=== PATIENT | female | born 1930 | race Caucasian/White ===

== ENCOUNTER 2016-09-11 15:48 | Inpatient (IN) | payer MEDICARE, OTHER ==
[~2016-09-11] VITALS: Ht 162.6 cm; Wt 57.7 kg
[~2016-09-11 15:48] MED LIST: ACET325T21 PO; ALBU2.5V13 NEB; ALBU2.5V5 NEB; ALEN70TA3 PO; ASPI325T4 PO; CALC-98 PO; CALC1TAB75 PO; CALC200T3 PO; CALC600T4 PO; CEPH-263 PO; CETI10TA16 PO; DIGO250T PO; DILT120C97 PO; FERR140T2 PO; FERR325T72 PO; FURO-68 PO; FURO40TA4 PO; HYDR-2666 PO; LEVO500T8 PO; LISI-334 PO; MAGN400C PO; MAGN400T3 PO; MELO-156 PO; METO25TA2 PO; METO25TA9 PO; OXYC-323 PO; POTA10CA PO; POTA10TA12 PO; TAMO10TA PO; TIOT18CA IH; TRAV5DRO EACHEYE
--- NOTE | 2016-09-11 16:44 | EKG ---
[facility] [address] [place] [address] Test Date: 2016-09-11 Test Time: 16:34:42 Pat Name: ALICE LEVY Department: Patient ID: [id number] Room: Gender: F [employer] Supervisor: VIKAS ER : 1930 Requested By: JESSICA LAWRENCE Order Number: [id number] Reading MD: Mary Jo Castaneda Measurements Intervals Armstrong Rate: 75 P: MD: QRS: 137 QRSD: 88 T: -16 QT: 398 QTc: 447 Interpretive Statements ATRIAL FIBRILLATION ABNORMAL RIGHT AXIS DEVIATION CONSIDER RIGHT VENTRICULAR HYPERTROPHY QRS(T) CONTOUR ABNORMALITY CONSISTENT WITH SEPTAL INFARCT AGE UNDETERMINED T ABNORMALITY IN INFERIOR LEADS ABNORMAL ECG RI6.01 Compared to ECG 07/19/2016 14:48:12 Electronically Signed On 09-15-2016 23:13:06 MEDICAL BILLER/CODER by Mary Jo Castaneda
[2016-09-11 16:56] LABS: BASO # 0.1 x10^3/uL (0.0-0.2); BASO % 1 % (0-3); EOS % 5 % (0-3); HEMATOCRIT 36.3 % (36.0-47.0); HEMOGLOBIN 11.8 g/dL (12.0-15.5); LYMPH % 18 % (24-48); MEAN CORPUSCULAR HEMOGLOBIN 29 pg (25-35); MEAN CORPUSCULAR HGB CONC 33 g/dL (31-37); MEAN CORPUSCULAR VOLUME 90 fL (79-100); MONO % 18 % (0-9); NEUT % 58 % (31-73); PLATELET COUNT 157 x10^3/uL (140-400); RED BLOOD COUNT 4.05 x10^6/uL (3.50-5.40); WHITE BLOOD COUNT 5.5 x10^3/uL (4.0-11.0)
[2016-09-11 17:12] LABS: INR 1.3 (0.8-1.1); PROTHROMBIN TIME PATIENT 15.3 SEC (11.7-14.0)
[2016-09-11 17:30] LABS: BILIRUBIN,URINE NEGATIVE (NEG); GLUCOSE,URINE NEGATIVE (NEG); NITRITE,URINE NEGATIVE (NEG); PROTEIN,URINE NEGATIVE (NEG-TRACE); UROBILINOGEN,URINE 0.2 mg/dL (0.2 mg/dL)
--- NOTE | 2016-09-11 17:44 | ED.ADGEN ---
Past Medical History Past Medical History: A-Fib, Anxiety, Arthritis, CHF, COPD, Hypertension, UTI Additional Past Medical Histor: BREAT CA, UTI SCOLOSIS, DVT, 02 AT HOME Past Surgical History: Other Additional Past Surgical Histo: R LUMPECTOMY Alcohol Use: None Drug Use: None Adult General Chief Complaint Chief Complaint: LOWER EXTREMITY SWELLING HPI HPI Patient is a 86 year old woman, history of atrial fibrillation, CAD, CHF, hypertension, breast cancer, who presents emergency Department with complaint of increased swelling in her lower extremities with a 5 pound weight gain over the past 4 days, increasing shortness of breath with dyspnea and exertion. Patient presented with her family with a concern for worsening of her underlying congestive heart failure. Patient's son states she isn't compliant with her medications, and that she was given extra dose of her Lasix today, but due to severity of symptoms became to the ED for evaluation. Patient denies any chest pain, any fevers or chills, cough, any injuries. Denies any GI or complaints, her primary care provider is Dr. Castaneda. Patient is on 2 L nasal cannula at baseline, 3 L of activity, patient is on 2 L in the ED, oxygen saturation are in the mid 90s. Heart rate is in the 70s, pressure 114/78. No respiratory distress. Review of Systems Review of Systems Constitutional: Denies fever or chills. [] Eyes: Denies change in visual acuity. [] HENT: Denies nasal congestion or sore throat. [] Respiratory: Denies cough or shortness of breath. [] Cardiovascular: Denies chest pain or edema. [] GI: Denies abdominal pain, nausea, vomiting, bloody stools or diarrhea. [] : Denies dysuria. [] Musculoskeletal: Denies back pain or joint pain. [] Integument: Denies rash. [] Neurologic: Denies headache, focal weakness or sensory changes. [] Endocrine: Denies polyuria or polydipsia. [] Lymphatic: Denies swollen glands. [] Psychiatric: Denies depression or anxiety. [] Allergies Allergies Allergies Coded Allergies Type Severity Reaction Last Updated Verified adhesive Allergy Intermediate 04/04/15 Yes Physical Exam Physical Exam Constitutional: Well developed, well nourished, no acute distress, non-toxic appearance. [] HENT: Normocephalic, atraumatic, bilateral external ears normal, oropharynx moist, no oral exudates, nose normal. [] Eyes: PERRLA, EOMI, conjunctiva normal, no discharge. [] Neck: Normal range of motion, no tenderness, supple, no stridor. [] Cardiovascular:Heart rate regular rhythm, no murmur , S1, S2, rubs or gallops. [ ] Lungs & Thorax: Diminished breath sounds at bases bilaterally to mid lung field especially on the right, with mild rales noted. No chest wall crepitus or tenderness. [] Abdomen: Bowel sounds normal, soft, no tenderness, no masses, no pulsatile masses. [] Skin: Warm, dry, no erythema, no rash. [] Back: No tenderness, no CVA tenderness. [] Extremities: No tenderness, no cyanosis, no clubbing, ROM intact, patient with 1 -2+ pitting edema bilaterally lower extremities. Neurologic: Alert and oriented X 3, normal motor function, normal sensory function, no focal deficits noted. [] Psychologic: Affect normal, judgement normal, mood normal. [] Current Patient Data Vital Signs Vital Signs Date Time Temp Pulse Resp B/P Pulse Ox O2 Delivery O2 Flow Rate FiO2 09/11/16 17:30 78 24 114/74 Nasal Cannula 97 09/11/16 17:00 96 09/11/16 16:20 98.2 98.2 Lab Values Laboratory Tests Test 09/11/16 16:40 09/11/16 17:21 09/11/16 17:30 White Blood Count 5.5x10^3/uL (4.0-11.0) Red Blood Count 4.05x10^6/uL (3.50-5.40) Hemoglobin 11.8g/dL (12.0-15.5) L Hematocrit 36.3% (36.0-47.0) Mean Corpuscular Volume 90fL (79-100) Mean Corpuscular Hemoglobin 29pg (25-35) Mean Corpuscular Hemoglobin Concent 33g/dL (31-37) Red Cell Distribution Width 16.0% (11.5-14.5) H Platelet Count 157x10^3/uL (140-400) Neutrophils (%) (Auto) 58% (31-73) Lymphocytes (%) (Auto) 18% (24-48) L Monocytes (%) (Auto) 18% (0-9) H Eosinophils (%) (Auto) 5% (0-3) H Basophils (%) (Auto) 1% (0-3) Neutrophils # (Auto) 3.2x10^3uL (1.8-7.7) Lymphocytes # (Auto) 1.0x10^3/uL (1.0-4.8) Monocytes # (Auto) 1.0x10^3/uL (0.0-1.1) Eosinophils # (Auto) 0.3x10^3/uL (0.0-0.7) Basophils # (Auto) 0.1x10^3/uL (0.0-0.2) Segmented Neutrophils % 59% (35-66) Band Neutrophils % 1% (0-9) Lymphocytes % 18% (24-48) L Monocytes % 19% (0-10) H Eosinophils % 1% (0-5) Basophils % 2% (0-3) Platelet Estimate Adequate (ADEQUATE) Poikilocytosis Mod Anisocytosis Slight Ovalocytes Few Schistocytes Few RBC Morphology Bizarre Forms Few Prothrombin Time 15.3SEC (11.7-14.0) H Prothrombin Time INR 1.3 (0.8-1.1) H PTT 35SEC (24-38) Urine Collection Type Unknown Urine Color Yellow Urine Clarity Clear Urine pH 7.0 Urine Specific [place] <=1.005 Urine Protein Negativemg/dL (NEG-TRACE) Urine Glucose (UA) Negativemg/dL (NEG) Urine Ketones (Stick) Negativemg/dL (NEG) Urine Blood Small (NEG) Urine Nitrite Negative (NEG) Urine Bilirubin Negative (NEG) Urine Urobilinogen Dipstick 0.2mg/dL (0.2 mg/dL) Urine Leukocyte Esterase Negative (NEG) Urine RBC Occ/HPF (0-2) Urine WBC 0/HPF (0-4) Urine Squamous Epithelial Cells Few/LPF Urine Bacteria Few/HPF (0-FEW) Sodium Level 141mmol/L (136-145) Potassium Level 4.4mmol/L (3.5-5.1) Chloride Level 102mmol/L (98-107) Carbon Dioxide Level 34mmol/L (21-32) H Anion Gap 5 (6-14) L Blood Urea Nitrogen 18mg/dL (7-20) Creatinine 1.0mg/dL (0.6-1.0) Estimated GFR (Cockcroft-Gault) 52.3 BUN/Creatinine Ratio 18 (6-20) Glucose Level 113mg/dL (70-99) H Calcium Level 9.2mg/dL (8.5-10.1) Total Bilirubin 0.9mg/dL (0.2-1.0) Aspartate Amino Transferase (AST) 24U/L (15-37) Alanine Aminotransferase (ALT) 10U/L (14-59) L Alkaline Phosphatase 155U/L (46-116) H Troponin I Quantitative < 0.017ng/mL (0.000-0.055) YB-[id number]-[id number]-Type Natriuretic Peptide 1802pg/mL (0-449) H Total Protein 7.3g/dL (6.4-8.2) Albumin 3.3g/dL (3.4-5.0) L Albumin/Globulin Ratio 0.8 (1.0-1.7) L Laboratory Tests 09/11/16 16:40 Laboratory Tests 09/11/16 17:30 EKG EKG EC: Regular rhythm, heart rate 75 beats minute, atrial fibrillation, right axis deviation with right ventricular hypertrophy noted, patient with T- wave inversions noted in the inferior leads, when compared to ECG from , this is a change, no ST elevations, mild baseline artifact noted. Abnormal ECG , as interpreted by me. [] Radiology/Procedures Radiology/Procedures Test x-ray: One view: Patient with large pleural effusion noted on the right, with significant cardiomegaly, pacemaker is in place, mild cephalization noted, effusion sun a significant change from previous x-ray. As interpreted by me. [ ] Course & Med Decision Making Course & Med Decision Making Pertinent Labs and Imaging studies reviewed. (See chart for details) Patient noted to have a large right-sided pleural effusion, discussion with family reveals the patient does a history of previous right-sided pleural effusion accumulations, has required drainage by interventional radiology. Patient is resting comfortably at this time, on 2 L nasal cannula, oxygen saturation is in the mid 90s, heart rate is in the 80s area I did discuss findings with Dr. Zapien, who is on-call for the patient's primary care provider Dr. Castaneda . We'll admit to her service, and placed a consultation for no rash or radiology for drainage. Discuss findings with family as stated, they're agreeable with this plan. Patient resting comfortably awaiting transfer to the floor. Dragon Disclaimer Dragon Disclaimer This electronic medical record was generated, in whole or in part, using a voice recognition dictation system. Departure Impression: Primary Impression: Pleural effusion Additional Impression: CHF (congestive heart failure) Disposition: 09 ADMITTED INPATIENT Admitting Physician: Chucky Zapien Condition: STABLE Problem Qualifiers Additional Impression: CHF (congestive heart failure) Congestive heart failure type: unspecified congestive heart failure type Congestive heart failure chronicity: unspecified congestive heart failure chronicity Qualified Code: I50.9 - Heart failure, unspecified JESSICA LAWRENCE DO Sep 11, 2016 17:44
[2016-09-11 17:45] LABS: CALCIUM 9.2 mg/dL (8.5-10.1); GFR 52.3; POTASSIUM 4.4 mmol/L (3.5-5.1)
[2016-09-11 17:45] LABS: BACTERIA,URINE FEW /HPF (0-FEW); RBC,URINE OCC /HPF (0-2); SQUAMOUS EPITHELIAL CELL,UR FEW /LPF; WBC,URINE 0 /HPF (0-4)
[2016-09-11 17:59] LABS: % BASOS 2 % (0-3); % EOS 1 % (0-5); ANISOCYTOSIS SLIGHT; PLT ESTIMATE ADEQUATE (ADEQUATE); POIKILOCYTOSIS MOD
[2016-09-11 18:00] LABS: OVALOCYTES FEW; SCHISTOCYTES FEW
[2016-09-11 18:00] LABS: ALBUMIN 3.3 g/dL (3.4-5.0); ALBUMIN/GLOBULIN RATIO 0.8 (1.0-1.7); TOTAL BILIRUBIN 0.9 mg/dL (0.2-1.0); TOTAL PROTEIN 7.3 g/dL (6.4-8.2)
[2016-09-11 20:00] VITALS: BP 114/80
[2016-09-11] MEDS ORDERED: CALCIUM CARBONATE 500 MG TAB.CHEW PO PRN (23:15)
[2016-09-11] MEDS ORDERED: ACETAMINOPHEN 325 MG TABLET. PO PRN (23:15)
[2016-09-11] MEDS ORDERED: HYDROCODONE/APAP 5/325MG TABLET. PO PRN (23:15)
[2016-09-11 23:24] VITALS: BP 113/65
[2016-09-11] MEDS: OXYCODONE/APAP 5/325 TABLET. PO PRN (23:58)
[2016-09-12] VITALS (10 sets, daily range): BP systolic 90–110; BP diastolic 56–83
[2016-09-12] MEDS ORDERED: PNEUMOCOCCAL VAX SCREEN BY RX. MC ONE (02:15)
[2016-09-12] MEDS: IPRATRPIUM/ALBUTEROL 0.5/2.5MG 3 ML NEBU. NEB SCH ×4 (08:48→21:09)
[2016-09-12] MEDS: METOPROLOL SUCC 24HR ER 25 MG TAB.ER.24H. PO SCH ×2 (09:00→12:39)
[2016-09-12] MEDS ORDERED: ALBUTEROL SULFATE 2.5 MG/3 ML NEBU. NEB SCH (09:00)
[2016-09-12] MEDS: FUROSEMIDE 40 MG TABLET PO SCH ×2 (09:00→16:00)
[2016-09-12] MEDS ORDERED: NON FORMULARY ITEM (Tiotropium Bromide (Spiriva) 1 CAP) IH SCH (09:00)
[2016-09-12] MEDS: CETIRIZINE HCL 10 MG TABLET PO SCH (09:07)
[2016-09-12] MEDS: FERROUS SULFATE 325 MG TABLET PO SCH (09:07)
[2016-09-12] MEDS: ASPIRIN 325 MG TABLET PO SCH (09:07)
[2016-09-12] MEDS: MAGNESIUM OXIDE 400 MG TABLET PO SCH (09:08)
--- NOTE | 2016-09-12 09:21 | RAD ---
Portable AP chest. History: Short of air, history CHF, hypertension AP view is taken of the chest. The heart is enlarged. Pacemaker on the left is unchanged. There is a moderate to large right pleural effusion which has worsened since the prior study from July 2016. There is atelectasis in the right lung base. There is a small left effusion. Impression: 1. Cardiomegaly. 2. Moderate to large right effusion.
[2016-09-12 09:25] LABS: BASO # 0.1 x10^3/uL (0.0-0.2); BASO % 1 % (0-3); EOS % 2 % (0-3); HEMATOCRIT 34.3 % (36.0-47.0); HEMOGLOBIN 11.2 g/dL (12.0-15.5); LYMPH # 1.3 x10^3/uL (1.0-4.8); LYMPH % 24 % (24-48); MEAN CORPUSCULAR HEMOGLOBIN 29 pg (25-35); MEAN CORPUSCULAR HGB CONC 33 g/dL (31-37); MEAN CORPUSCULAR VOLUME 88 fL (79-100); MONO % 14 % (0-9); NEUT % 58 % (31-73); PLATELET COUNT 157 x10^3/uL (140-400); RED BLOOD COUNT 3.89 x10^6/uL (3.50-5.40); RED CELL DISTRIBUTION WIDTH 15.9 % (11.5-14.5); WHITE BLOOD COUNT 5.2 x10^3/uL (4.0-11.0)
[2016-09-12 09:36] LABS: CALCIUM 8.7 mg/dL (8.5-10.1); CREATININE 1.1 mg/dL (0.6-1.0); GFR 46.9; POTASSIUM 3.6 mmol/L (3.5-5.1)
[2016-09-12] MEDS: OXYCODONE/APAP 5/325 TABLET. PO PRN (14:33)
--- NOTE | 2016-09-12 16:17 | PDOC1 ---
History and Physical Date of Admission Date of Admission DATE: 09/12/16 TIME: 16:11 Identification/Chief Complaint Chief Complaint Covering for Dr. Castaneda This patient is a very pleasant 86-year-old lady that has a known history of coronary artery disease, atrial fibrillation, status post pacemaker, and breast CA. She has had problems with pleural effusions in the past and once before she had to be tapped. The patient has been getting more and more short of breath over the last week and especially over the last 5 days and she has noticed that her weight has gone up several pounds. She denies any palpitations, she denies any chest pains. The patient came into the ER with severe dyspnea. She was seen and evaluated there and she was found to have a large right pleural effusion present. He was decided to admit the patient for further workup and treatment. At the time that I saw her she is short of breath and has received IV Lasix and she is complaining about the frequency of urination but denies any chest pains. Past Medical History Cardiovascular: AFIB, CAD, CHF, HTN, Mitral valve stenosis, Aortic stenosis Pulmonary: Other Heme/Onc: Cancer, Other Past Surgical History Past Surgical History: Other Family History Family History: No Significant Social History ALCOHOL: none Drugs: None Current Problem List Problem List Problems Medical Problems: (1) CHF (congestive heart failure) Status: Acute (2) Pleural effusion Status: Acute Problems: Current Medications Current Medications Current Medications Acetaminophen (Tylenol) 325 mg PRN Q4HRS PRN PO MILD PAIN; Start 09/11/16 at 23: 15 Albuterol Sulfate (Ventolin Neb Soln) 1 mg QID NEB ; Start 09/12/16 at 09:00; Status UNV Aspirin (Meena Aspirin) 325 mg DAILY PO Last administered on 09/12/16 09:07; Start 09/12/16 at 09:00 Calcium Carbonate/ Glycine (Tums) 500 mg PRN Q2HRS PRN PO INDIGESTION; Start at 23:15 Cetirizine HCl (Zyrtec) 10 mg DAILY PO Last administered on 09/12/16 09:07; Start 09/12/16 at 09:00 Ferrous Sulfate (Feosol) 325 mg DAILY PO Last administered on 09/12/16 09:07; Start 09/12/16 at 09:00 Furosemide (Lasix) 40 mg BID94 PO ; Start 09/12/16 at 09:00 Acetaminophen/ Hydrocodone Bitart (Lortab 5/325) 1 tab PRN Q8HRS PRN PO MODERATE PAIN; Start 09/11/16 at 23:15 Magnesium Oxide (Magnesium Oxide) 400 mg DAILY PO Last administered on 09:08; Start 09/12/16 at 09:00 Metoprolol Succinate (Toprol Xl) 25 mg DAILY PO Last administered on 09/12/16 12:39; Start 09/12/16 at 09:00 Oxycodone/ Acetaminophen (Percocet 5/325) 1 tab PRN Q8HRS PRN PO SEVERE PAIN Last administered on 09/12/16 14:33; Start 09/11/16 at 23:15 Potassium Chloride (Klor-Con) 40 meq BID PO ; Start 09/12/16 at 09:00 Non-Formulary Medication 1 cap DAILY IH ; Start 09/12/16 at 09:00; Status UNV Latanoprost (Xalatan) 1 drop QHS OU ; Start 09/12/16 at 21:00 Albuterol/ Ipratropium (Duoneb) 3 ml RTQID NEB Last administered on 09/12/16 16 :00; Start 09/12/16 at 08:00 Pneumococcal Polyvalent Vaccine (Do NOT chart on this placeholder) 1 each 1X ONCE MC ; Start 09/12/16 at 02:15; Stop 09/12/16 at 02:16; Status UNV Active Scripts Active Keflex (Cephalexin) 250 Mg Capsule 1 Cap PO TID Feosol (Ferrous Sulfate) 325 Mg Tablet 325 Mg PO DAILY Reported Potassium Chloride 10 Meq Capsule.er 40 Meq PO BID Aspirin 325 Mg Tablet 1 Tab PO DAILY Percocet 5-325 Mg Tablet (Oxycodone/Acetaminophen) 1 Each Tablet 1 Tab PO Q8HRS PRN Toprol Xl (Metoprolol Succinate) 25 Mg Tab.er.24h 1 Tab PO DAILY Magnesium Oxide 400 Mg Tablet 400 Mg PO DAILY Lasix (Furosemide) 40 Mg Tablet 1 Tab PO BID Albuterol Sulfate Neb Soln (Albuterol Sulfate) 2.5 Mg/3 Ml Vial.neb 1 Vial NEB QID Hydrocodone-Apap 5-325 (Hydrocodone Bit/Acetaminophen) 1 Each Tablet 1 Tab PO PRN Q8HRS PRN Cetirizine Hcl 10 Mg Tablet 1 Tab PO DAILY Acetaminophen 325 Mg Tablet 325 Mg PO PRN Q4HRS PRN Tums (Calcium Carbonate) 200 Mg Tab.chew 200 Mg PO PRN Q2HRS PRN Spiriva (Tiotropium [place]) 18 Mcg Cap.w.dev 1 Cap IH DAILY Travatan Z (Travoprost) 5 Ml Drops 1 Drop EACHEYE QHS Allergies Allergies: Coded Allergies: adhesive (Verified Allergy, Intermediate, 04/04/15) Physical Exam Physical Exam Patient is an elderly lady in mild distress. H EENT pupils are reactive. Oral mucosa is well-hydrated. Neck is supple 2 cm JVD. Lungs breath sounds are markedly decreased in the right side custodial up and there are Rales on the right side above that and there are also Rales in the left base. No wheezing. Heart tachycardia, regular rate and rhythm, S1 and S2, 2/6 systolic murmur. Abdomen is soft bowel sounds are present. Extremities 1+ pitting edema. Neurological exam was grossly intact and appropriate for age. Vitals Vitals Vital Signs Date Time Temp Pulse Resp B/P Pulse Ox O2 Delivery O2 Flow Rate FiO2 09/12/16 16:00 Nasal Cannula 3.0 09/12/16 15:36 98.2 79 24 97/58 96 98.2 Labs Labs Laboratory Tests Test 09/11/16 16:40 09/11/16 17:21 09/11/16 17:30 09/12/16 09:15 White Blood Count 5.5x10^3/uL (4.0-11.0) 5.2x10^3/uL (4.0-11.0) Red Blood Count 4.05x10^6/uL (3.50-5.40) 3.89x10^6/uL (3.50-5.40) Hemoglobin 11.8g/dL (12.0-15.5) 11.2g/dL (12.0-15.5) Hematocrit 36.3% (36.0-47.0) 34.3% (36.0-47.0) Mean Corpuscular Volume 90fL (79-100) 88fL (79-100) Mean Corpuscular Hemoglobin 29pg (25-35) 29pg (25-35) Mean Corpuscular Hemoglobin Concent 33g/dL (31-37) 33g/dL (31-37) Red Cell Distribution Width 16.0% (11.5-14.5) 15.9% (11.5-14.5) Platelet Count 157x10^3/uL (140-400) 157x10^3/uL (140-400) Neutrophils (%) (Auto) 58% (31-73) 58% (31-73) Lymphocytes (%) (Auto) 18% (24-48) 24% (24-48) Monocytes (%) (Auto) 18% (0-9) 14% (0-9) Eosinophils (%) (Auto) 5% (0-3) 2% (0-3) Basophils (%) (Auto) 1% (0-3) 1% (0-3) Neutrophils # (Auto) 3.2x10^3uL (1.8-7.7) 3.0x10^3uL (1.8-7.7) Lymphocytes # (Auto) 1.0x10^3/uL (1.0-4.8) 1.3x10^3/uL (1.0-4.8) Monocytes # (Auto) 1.0x10^3/uL (0.0-1.1) 0.7x10^3/uL (0.0-1.1) Eosinophils # (Auto) 0.3x10^3/uL (0.0-0.7) 0.1x10^3/uL (0.0-0.7) Basophils # (Auto) 0.1x10^3/uL (0.0-0.2) 0.1x10^3/uL (0.0-0.2) Segmented Neutrophils % 59% (35-66) Band Neutrophils % 1% (0-9) Lymphocytes % 18% (24-48) Monocytes % 19% (0-10) Eosinophils % 1% (0-5) Basophils % 2% (0-3) Platelet Estimate Adequate (ADEQUATE) Poikilocytosis Mod Anisocytosis Slight Ovalocytes Few Schistocytes Few RBC Morphology Bizarre Forms Few Prothrombin Time 15.3SEC (11.7-14.0) Prothromb Time International Ratio 1.3 (0.8-1.1) Activated Partial Thromboplast Time 35SEC (24-38) Urine Collection Type Unknown Urine Color Yellow Urine Clarity Clear Urine pH 7.0 Urine Specific [place] <=1.005 Urine Protein Negativemg/dL (NEG-TRACE) Urine Glucose (UA) Negativemg/dL (NEG) Urine Ketones (Stick) Negativemg/dL (NEG) Urine Blood Small (NEG) Urine Nitrite Negative (NEG) Urine Bilirubin Negative (NEG) Urine Urobilinogen Dipstick 0.2mg/dL (0.2 mg/dL) Urine Leukocyte Esterase Negative (NEG) Urine RBC Occ/HPF (0-2) Urine WBC 0/HPF (0-4) Urine Squamous Epithelial Cells Few/LPF Urine Bacteria Few/HPF (0-FEW) Sodium Level 141mmol/L (136-145) 142mmol/L (136-145) Potassium Level 4.4mmol/L (3.5-5.1) 3.6mmol/L (3.5-5.1) Chloride Level 102mmol/L (98-107) 102mmol/L (98-107) Carbon Dioxide Level 34mmol/L (21-32) 31mmol/L (21-32) Anion Gap 5 (6-14) 9 (6-14) Blood Urea Nitrogen 18mg/dL (7-20) 17mg/dL (7-20) Creatinine 1.0mg/dL (0.6-1.0) 1.1mg/dL (0.6-1.0) Estimated GFR (Cockcroft-Gault) 52.3 46.9 BUN/Creatinine Ratio 18 (6-20) Glucose Level 113mg/dL (70-99) 179mg/dL (70-99) Calcium Level 9.2mg/dL (8.5-10.1) 8.7mg/dL (8.5-10.1) Total Bilirubin 0.9mg/dL (0.2-1.0) Aspartate Amino Transf (AST/SGOT) 24U/L (15-37) Alanine Aminotransferase (ALT/SGPT) 10U/L (14-59) Alkaline Phosphatase 155U/L (46-116) Troponin I Quantitative < 0.017ng/mL (0.000-0.055) GZ-Ahg-A-Type Natriuretic Peptide 1802pg/mL (0-449) Total Protein 7.3g/dL (6.4-8.2) Albumin 3.3g/dL (3.4-5.0) Albumin/Globulin Ratio 0.8 (1.0-1.7) Laboratory Tests Test 09/11/16 16:40 09/11/16 17:21 09/11/16 17:30 09/12/16 09:15 White Blood Count 5.5x10^3/uL (4.0-11.0) 5.2x10^3/uL (4.0-11.0) Red Blood Count 4.05x10^6/uL (3.50-5.40) 3.89x10^6/uL (3.50-5.40) Hemoglobin 11.8g/dL (12.0-15.5) 11.2g/dL (12.0-15.5) Hematocrit 36.3% (36.0-47.0) 34.3% (36.0-47.0) Mean Corpuscular Volume 90fL (79-100) 88fL (79-100) Mean Corpuscular Hemoglobin 29pg (25-35) 29pg (25-35) Mean Corpuscular Hemoglobin Concent 33g/dL (31-37) 33g/dL (31-37) Red Cell Distribution Width 16.0% (11.5-14.5) 15.9% (11.5-14.5) Platelet Count 157x10^3/uL (140-400) 157x10^3/uL (140-400) Neutrophils (%) (Auto) 58% (31-73) 58% (31-73) Lymphocytes (%) (Auto) 18% (24-48) 24% (24-48) Monocytes (%) (Auto) 18% (0-9) 14% (0-9) Eosinophils (%) (Auto) 5% (0-3) 2% (0-3) Basophils (%) (Auto) 1% (0-3) 1% (0-3) Neutrophils # (Auto) 3.2x10^3uL (1.8-7.7) 3.0x10^3uL (1.8-7.7) Lymphocytes # (Auto) 1.0x10^3/uL (1.0-4.8) 1.3x10^3/uL (1.0-4.8) Monocytes # (Auto) 1.0x10^3/uL (0.0-1.1) 0.7x10^3/uL (0.0-1.1) Eosinophils # (Auto) 0.3x10^3/uL (0.0-0.7) 0.1x10^3/uL (0.0-0.7) Basophils # (Auto) 0.1x10^3/uL (0.0-0.2) 0.1x10^3/uL (0.0-0.2) Segmented Neutrophils % 59% (35-66) Band Neutrophils % 1% (0-9) Lymphocytes % 18% (24-48) Monocytes % 19% (0-10) Eosinophils % 1% (0-5) Basophils % 2% (0-3) Platelet Estimate Adequate (ADEQUATE) Poikilocytosis Mod Anisocytosis Slight Ovalocytes Few Schistocytes Few RBC Morphology Bizarre Forms Few Prothrombin Time 15.3SEC (11.7-14.0) Prothromb Time International Ratio 1.3 (0.8-1.1) Activated Partial Thromboplast Time 35SEC (24-38) Urine Collection Type Unknown Urine Color Yellow Urine Clarity Clear Urine pH 7.0 Urine Specific [place] <=1.005 Urine Protein Negativemg/dL (NEG-TRACE) Urine Glucose (UA) Negativemg/dL (NEG) Urine Ketones (Stick) Negativemg/dL (NEG) Urine Blood Small (NEG) Urine Nitrite Negative (NEG) Urine Bilirubin Negative (NEG) Urine Urobilinogen Dipstick 0.2mg/dL (0.2 mg/dL) Urine Leukocyte Esterase Negative (NEG) Urine RBC Occ/HPF (0-2) Urine WBC 0/HPF (0-4) Urine Squamous Epithelial Cells Few/LPF Urine Bacteria Few/HPF (0-FEW) Sodium Level 141mmol/L (136-145) 142mmol/L (136-145) Potassium Level 4.4mmol/L (3.5-5.1) 3.6mmol/L (3.5-5.1) Chloride Level 102mmol/L (98-107) 102mmol/L (98-107) Carbon Dioxide Level 34mmol/L (21-32) 31mmol/L (21-32) Anion Gap 5 (6-14) 9 (6-14) Blood Urea Nitrogen 18mg/dL (7-20) 17mg/dL (7-20) Creatinine 1.0mg/dL (0.6-1.0) 1.1mg/dL (0.6-1.0) Estimated GFR (Cockcroft-Gault) 52.3 46.9 BUN/Creatinine Ratio 18 (6-20) Glucose Level 113mg/dL (70-99) 179mg/dL (70-99) Calcium Level 9.2mg/dL (8.5-10.1) 8.7mg/dL (8.5-10.1) Total Bilirubin 0.9mg/dL (0.2-1.0) Aspartate Amino Transf (AST/SGOT) 24U/L (15-37) Alanine Aminotransferase (ALT/SGPT) 10U/L (14-59) Alkaline Phosphatase 155U/L (46-116) Troponin I Quantitative < 0.017ng/mL (0.000-0.055) CP-Lrv-K-Type Natriuretic Peptide 1802pg/mL (0-449) Total Protein 7.3g/dL (6.4-8.2) Albumin 3.3g/dL (3.4-5.0) Albumin/Globulin Ratio 0.8 (1.0-1.7) VTE Prophylaxis Ordered VTE Prophylaxis Devices: No VTE Pharmacological Prophylaxi: Yes Assessment/Plan Assessment/Plan This patient comes in with respiratory distress in acute CHF and with a large right pleural effusion. At this point I agree with diuresing the patient but I also think that they need to do a thoracentesis. We'll set up for the thoracentesis to be done by interventional radiology in the morning. HI LIMON MD Sep 12, 2016 16:17
[2016-09-12] MEDS ORDERED: FUROSEMIDE 40 MG/4 ML VIAL IVP ONE (16:45)
[2016-09-12] MEDS: POTASSIUM CHLORIDE 20 MEQ TABLET.ER. PO SCH ×2 (16:58→21:03)
[2016-09-12] MEDS ORDERED: POTASSIUM CHLORIDE 20 MEQ TABLET.ER. PO ONE (17:00)
[2016-09-12] MEDS: LATANOPROST 0.005% OPHTH SOLUTION 2.5ML BOTTLE. OU SCH (21:03)
[2016-09-13] VITALS (17 sets, daily range): BP systolic 99–127; BP diastolic 69–88
[2016-09-13] MEDS: IPRATRPIUM/ALBUTEROL 0.5/2.5MG 3 ML NEBU. NEB SCH ×4 (07:48→19:41)
[2016-09-13] MEDS: POTASSIUM CHLORIDE 20 MEQ TABLET.ER. PO SCH ×2 (08:15→21:01)
[2016-09-13] MEDS: FUROSEMIDE 40 MG/4 ML VIAL IVP SCH (08:15)
[2016-09-13] MEDS: METOPROLOL SUCC 24HR ER 25 MG TAB.ER.24H. PO SCH (08:16)
[2016-09-13] MEDS: CETIRIZINE HCL 10 MG TABLET PO SCH (08:16)
[2016-09-13] MEDS: MAGNESIUM OXIDE 400 MG TABLET PO SCH (08:16)
[2016-09-13] MEDS ORDERED: LIDOCAINE 1% / SOD BICARB 8.4% 20 ML VIAL. IJ ONE ×2 (10:28→11:15)
[2016-09-13] MEDS ORDERED: MIDAZOLAM HCL 2 MG/2 ML VIAL. ONE (10:56)
[2016-09-13] MEDS ORDERED: FENTANYL PF 100 MCG/2 ML VIAL. ONE (10:56)
[2016-09-13] MEDS ORDERED: FENTANYL PF 100 MCG/2 ML VIAL. IV ONE (11:15)
[2016-09-13] MEDS ORDERED: MIDAZOLAM HCL 2 MG/2 ML VIAL. IV ONE (11:15)
--- NOTE | 2016-09-13 11:26 | PDOC ---
MODERATE SEDATION ASSESSMENT RISKS/ALTERNATIVES Risks/Alternatives Risks and alternatives of this type of sedation and procedure discussed with: RISK/ALTERNATIVES: Patient H & P ON CHART H & P H & P on chart and reviewed for co-morbid conditions and appropriate labs. H&P ON CHART: Yes STATUS PREG STATUS ASSESSED: N/A MEDS/ALLERGIES REVIEWED Meds/Allergies Reviewed Medications and Allergies including time and route of recently administered narcotics and sedatives. MEDS/ALLERGIES REVIEWED: Yes ASA RATING ASA RATING: III AIRWAY ASSESSMENT Airway Assessment Airway patency, oral function limitations, presence of caps, crowns, dentures, partials, and ability to extend neck assessed. AIRWAY ASSESSMENT: Yes MALLAMPATI SCORE MALLAMPATI SCORE: II PRE-SEDATION ASSESSMENT PRE-SEDATION ASSESSMENT: Yes JITENDRA FOOTE MD Sep 13, 2016 11:26
--- NOTE | 2016-09-13 11:30 | PDOC ---
Exam Call Out Operator Call Out Operator Naveen Electrodynamicist Electrodynamicist Jamil Fuentes Pre-Procedure Diagnosis Pre-Procedure Diagnosis 86 YO female with H/o CAD, CHF, Afib, Mitral and aortic valve disease, and breast cancer. Now with recurrent right pleural effusion, with progressive dyspnea. Image guided right thoracentesis has been requested by Cardiology. Post-Procedure Diagnosis Post-Procedure Diagnosis Same Procedure Performed Procedure Performed CT guided right thoracentesis Type of Anesthesia Type of Anesthesia Local + moderate sedation Estimated Blood Loss EBL: Trace Specimens Specimans 1000 cc serosanguineous-hazy right pleural fluid removed Condition of Patient Condition of Patient No change. No apparent complication. No immediate post thora Ptx. Disposition Disposition From CT return to [facility]. F/u with Cardiology. Full report to follow. 2 hr post thoracentesis insp/exp CXR requested. JITENDRA FOOTE MD Sep 13, 2016 11:30
[2016-09-13 14:24] LABS: BF CLARITY TURBID; BF COLOR RED
--- NOTE | 2016-09-13 14:29 | RAD ---
Exam: AP portable inspiratory and expiratory upright chest radiograph. History: 2 hours status post thoracentesis. Comparison: 09/11/2016. Findings: Patient is rotated. Cardiac silhouette appears enlarged, similar previous study. Aortic atherosclerosis is seen. Single lead pacemaker by left subclavian approach is noted. There is interval resolution of right pleural effusion. No post procedure pneumothorax identified. Small left pleural effusion is seen. Impression: 1. Interval resolution of right pleural effusion, compatible with thoracentesis. No post procedure pneumothorax is identified . 2. Small left pleural effusion.
[2016-09-13] MEDS: FERROUS SULFATE 325 MG TABLET PO SCH (14:51)
[2016-09-13] MEDS: ASPIRIN 325 MG TABLET PO SCH (14:51)
--- NOTE | 2016-09-13 15:15 | RAD ---
CT-guided diagnostic and therapeutic right thoracentesis Indication: 78-year-old female with history of coronary artery disease, congestive heart failure, atrial fibrillation, mitral and aortic valve disease, and breast carcinoma. She has a moderately large, recurrent right pleural effusion, with progressive dyspnea. Image guided diagnostic/therapeutic thoracentesis has been requested by cardiology. Anesthesia: 21 minutes moderate sedation was provided utilizing a total of 0.5 mg Versed and 25 mcg fentanyl, IV. The patient was appropriately monitored by a qualified independent observer throughout the time of moderate sedation. Procedure: Informed consent was obtained from the patient. She was placed supine on the CT scanner. Preliminary noncontrast CT images confirmed the presence of a moderately large pleural effusion, with associated right basilar compression atelectasis. A skin site suitable for CT-guided thoracentesis was selected and marked along the lateral aspect of lower right hemithorax. That area was prepped and draped in the usual sterile fashion. Using aseptic technique, local anesthesia, and CT guidance, a micropuncture sheath was successfully introduced into the low right lateral pleural space. This sheath was then exchanged over a guidewire for a 6 [place] drainage catheter. Approximately 1000 cc of serosanguineous-hazy right pleural fluid was then easily removed, samples which were submitted to the clinical laboratory per routine protocol. Completion CT images documented essentially complete resolution of the right pleural effusion, without pneumothorax. The drainage catheter was removed and a sterile dressing was applied. Patient tolerated the procedure well without apparent complication. Impression: Successful, uneventful CT-guided diagnostic and therapeutic right thoracentesis, as described. PQRS compliance statement: One or more of the following individualized dose reduction techniques was utilized for this CT procedure: 1. Automated exposure control. 2. Adjustment of MA and/or KV according to patient size. 3. Iterative reconstruction technique.
[2016-09-13] MEDS: LATANOPROST 0.005% OPHTH SOLUTION 2.5ML BOTTLE. OU SCH (20:59)
[2016-09-13] MEDS: OXYCODONE/APAP 5/325 TABLET. PO PRN (21:07)
--- NOTE | 2016-09-13 21:34 | PDOC ---
Provider Note Provider Note She feels better after thoracentesis, She wants to go home today, but will discharge tomorrow SANTIAGO RAY MD Sep 13, 2016 21:34
[2016-09-14 03:30] VITALS: BP 104/77
[2016-09-14] MEDS: OXYCODONE/APAP 5/325 TABLET. PO PRN (07:14)
[2016-09-14 07:51] VITALS: BP 111/83
[2016-09-14] MEDS: IPRATRPIUM/ALBUTEROL 0.5/2.5MG 3 ML NEBU. NEB SCH ×2 (08:02→11:52)
[2016-09-14] MEDS: ASPIRIN 325 MG TABLET PO SCH (08:30)
[2016-09-14] MEDS: METOPROLOL SUCC 24HR ER 25 MG TAB.ER.24H. PO SCH (08:31)
[2016-09-14] MEDS: POTASSIUM CHLORIDE 20 MEQ TABLET.ER. PO SCH (08:31)
[2016-09-14] MEDS: CETIRIZINE HCL 10 MG TABLET PO SCH (08:31)
[2016-09-14] MEDS: MAGNESIUM OXIDE 400 MG TABLET PO SCH (08:31)
[2016-09-14] MEDS: FUROSEMIDE 40 MG/4 ML VIAL IVP SCH (08:31)
[2016-09-14] MEDS: FERROUS SULFATE 325 MG TABLET PO SCH (08:31)
[2016-09-14 10:40] VITALS: BP 91/64
--- NOTE | 2016-09-14 17:28 | PATHOLOGY ---
CYTOPATHOLOGY REPORT CLINICAL HISTORY: Right pleural effusion. SPECIMEN(S) RECEIVED: A.Pleural fluid, Right FINAL DIAGNOSIS: Right pleural fluid, ThinPrep and cell block: - No malignant cells identified. - Focally reactive mesothelial cells and few inflammatory cells identified. (JPM:csd; d/t: 09/14/2016) PATHOLOGIST: Frederick Moon M.D. REPORT ELECTRONICALLY SIGNED BY: Frederick Moon M.D. DATE/TIME: 09/14/2016 16:38 GROSS PATHOLOGY: A. Pleural fluid, Right: The specimen is submitted unfixed, labeled "Alice Levy". Received by the Cytology Department is 20 mL of orange red fluid. One ThinPrep slide and a cell block were prepared. (clt 09.13.2016) PET SITTING(S): PEPE Alonso(ASCP) INITIAL CPT CODE(S): A; 66296, 80446 Professional services performed by [facility] [place] [address] Technical services performed by [facility] at [address] [place] [address], [address] [address]. PATIENT: ALICE LEVY /AGE: 8 1930 (Age: 86) SEX: F PATIENT #: [id number] ALT CASE #: SPECIMEN COLLECTION DATE: 09/13/2016 SPECIMEN RECEIVED DATE: 09/13/[address] [facility] [address] [place] [address], [address] [place] [address] PHONE: [phone] DIRECTOR: Ben Sarabia M.D. * * * END OF REPORT * * *
--- NOTE | 2016-09-15 21:36 | DS ---
DATE OF DISCHARGE: 09/14/2016 HOSPITAL COURSE: This is an 86-year-old white female who was brought to the hospital because of increasing shortness of breath. Her son lives with her. He has been watching her weight and has been giving her extra dose of Lasix and potassium. She did seem to put on 5 pounds and he did give her the extra Lasix. However, she continued to be short of breath and thus he brought her to the Emergency Room. In the Emergency Room, the right pleural effusion seemed to have increased in size. She has had a right pleural effusion and has had several thoracentesis in the past. The last thoracentesis was in August 2015. She underwent a thoracentesis, 1000 mL was removed. She felt better. She was thus discharged. FINAL DIAGNOSES: 1. Mixed vufez-ej-vfvwewt diastolic and systolic congestive heart failure. 2. Permanent atrial fibrillation with a controlled ventricular response. 3. Pleural effusion secondary to mixed tajrs-bk-dsbpios diastolic and systolic congestive heart failure. PLAN: She was asked to go back on all her home medications. As stated before, the son has been adjusting her dose of Lasix according to her weight. Her potassium was normal on admission and so the amount potassium she is receiving at home was also appropriate. SANTIAGO RAY MD DR: MICKI/jacques JOB#: [id number] / [id number]
== END 2016-09-14 13:18 | disposition home health service (06) | DRG 291 ==
LOC: ER 15:48 → 2 NORTH 18:11
PROVIDERS: ADMIT Specialist; ATTEND Specialist
PROC: 0W993ZX Drainage of Right Pleural Cavity, Percutaneous Approach, Diagnostic (ICD-10-PCS; principal; 2016-09-13)
DX: I13.0 Hypertensive heart and chronic kidney disease with heart failure and stage 1 through stage 4 chronic kidney disease, or unspecified chronic kidney disease (principal); I50.43 Acute on chronic combined systolic (congestive) and diastolic (congestive) heart failure; J90 Pleural effusion, not elsewhere classified; I08.0 Rheumatic disorders of both mitral and aortic valves; I25.10 Atherosclerotic heart disease of native coronary artery without angina pectoris; I48.2 Chronic atrial fibrillation; J44.9 Chronic obstructive pulmonary disease, unspecified; F41.9 Anxiety disorder, unspecified; M19.90 Unspecified osteoarthritis, unspecified site; Z85.3 Personal history of malignant neoplasm of breast; Z95.0 Presence of cardiac pacemaker; Z79.82 Long term (current) use of aspirin; Z79.899 Other long term (current) drug therapy; Z98.890 Other specified postprocedural states; N18.3 Chronic kidney disease, stage 3 (moderate)
CPT/HCPCS: 32555; 36415; 71010; 71035; 80048; 80053; 81001; 82945; 83615; 83880; 83986; 84157; 84484; 85007; 85027; 85610; 85730; 87071; 87075; 87205; 88112; 88305; 89050; 93005; 94640; 94760; A4215; C1729; C1892; C1894; J1940; J2250; J3010; J7620; 99285-25

== ENCOUNTER 2016-11-02 14:41 | Inpatient (IN) | payer MEDICARE, OTHER ==
[~2016-11-02] VITALS: Ht 165.1 cm; Wt 60.8 kg
[~2016-11-02 14:41] MED LIST changes: -ALBU2.5V13 NEB; +ALBU2.5V14 NEB
[2016-11-02 16:30] VITALS: BP 112/79
[2016-11-02] MEDS ORDERED: FUROSEMIDE 40 MG/4 ML VIAL IVP ONE (16:30)
[2016-11-02 16:49] LABS: BASO # 0.1 x10^3/uL (0.0-0.2); BASO % 1 % (0-3); EOS % 2 % (0-3); HEMATOCRIT 37.7 % (36.0-47.0); LYMPH # 0.9 x10^3/uL (1.0-4.8); LYMPH % 17 % (24-48); MEAN CORPUSCULAR HEMOGLOBIN 29 pg (25-35); MEAN CORPUSCULAR HGB CONC 32 g/dL (31-37); MEAN CORPUSCULAR VOLUME 90 fL (79-100); MONO % 20 % (0-9); NEUT % 60 % (31-73); PLATELET COUNT 134 x10^3/uL (140-400); RED BLOOD COUNT 4.18 x10^6/uL (3.50-5.40); RED CELL DISTRIBUTION WIDTH 16.8 % (11.5-14.5); WHITE BLOOD COUNT 5.4 x10^3/uL (4.0-11.0)
[2016-11-02 16:59] LABS: ALBUMIN 3.1 g/dL (3.4-5.0); ALBUMIN/GLOBULIN RATIO 0.8 (1.0-1.7); CALCIUM 9.5 mg/dL (8.5-10.1); GFR 52.3; POTASSIUM 4.6 mmol/L (3.5-5.1); TOTAL BILIRUBIN 1.2 mg/dL (0.2-1.0)
--- NOTE | 2016-11-02 17:29 | RAD ---
Chest PA and lateral Indication: Shortness of air. Comparison is made with prior chest from 09/13/2016. The heart is enlarged but stable. The single lead cardiac pacer remains in place. There has been development of a moderate right pleural effusion with associated right basilar consolidation. The left lung is clear. No pneumothorax is identified. Impression: Development of moderate right basilar effusion with associated consolidation. Electronically signed by: Donny Whitney MD (Nov 02, 2016 17:27:44)
[2016-11-02 18:02] LABS: % BASOS 1 % (0-3); % EOS 1 % (0-5)
[2016-11-02 18:06] LABS: PLT ESTIMATE DECREASED (ADEQUATE)
[2016-11-02] MEDS ORDERED: LUTE1CAP PO (19:18)
[2016-11-02] MEDS ORDERED: CALC-52 PO (19:18)
[2016-11-02] MEDS ORDERED: BRIN10DR EACHEYE (19:18)
[2016-11-02] MEDS ORDERED: CALC1TAB75 PO (19:18)
[2016-11-02] MEDS ORDERED: FURO80TA72 PO (19:18)
[2016-11-02 19:30] VITALS: BP 94/68
[2016-11-02] MEDS ORDERED: POTASSIUM CHLORIDE 10 MEQ TABLET.ER. PO ONE (20:45)
[2016-11-02] MEDS: OXYCODONE/APAP 5/325 TABLET. PO PRN (21:40)
--- NOTE | 2016-11-02 22:52 | HP ---
ADMIT DATE: 11/02/2016 HISTORY OF PRESENT ILLNESS: This is an 86-year-old white female, who came into the office. The son complained that she was getting more and more short of breath with minimal exertion. She brought in her oxygen conservator. She was at 2 liters per minute and at rest, the oxygen saturation was 92%. She barely stood up and took a step. Her oxygen saturation dropped to below 90%. The oxygen delivery was increased to 3 liters per minute. She then took a very short walk in the [place]. The nurse had too rapidly increase the oxygen delivery to 5 liters per minute. She barely made it back to her room. Even after sitting down, she continued to be short of breath. After being seated, the oxygen saturation came up. While she was walking, the O2 saturation was 88% even on 5 liters per minute. She had decreased breath sounds on the right side. Thus, with significant hypoxia with minimal exertion, she was hospitalized considering the fact that she probably has re-accumulation of the pleural effusion and for thoracentesis. Her conservator delivers oxygen only up to 5 liters per minute. This patient has had several hospitalizations for exacerbation of CHF. She had done fairly well for about a year from 08/2015 to 07/2016. Her last thoracentesis was in the first week of 09/2016; but the previous thoracentesis was a year before that in 08/2015. She has been getting diuretics regularly. Her son who lives with her has been very diligent in giving her medications. He also weighs her everyday. She has gained some weight recently. She has been giving extra Lasix when there has been no weight gain. She has been trying to be careful with salt. The last echocardiogram done was in 06/2016. At that time: 1. The ejection fraction was normal at 55% to 60%. 2. There was significant diastolic dysfunction with mitral valve E-wave deceleration time being 98 milliseconds. 3. There was miqn-ln-zcjciudw mitral regurgitation. 4. There was biatrial enlargement. 5. There was moderate pulmonary hypertension with the right ventricular systolic pressure being 55 mmHg. She has had permanent atrial fibrillation. Her ventricular response has been erratic, but has been fairly well controlled with a pacemaker that had to be placed in June and the metoprolol tartrate 25 mg a day. When she is here, she will be monitored. Also recently, she had an episode of cellulitis with the blood cultures growing Streptococcus ____. She has had some wheezing. She has been taking the albuterol inhaler. 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 No EGD was performed, but esophagogram showed severe presbyesophagus at the distal end of the esophagus. Lately, she has not complained of any dysphagia. She has also not complained of cough while eating. We will however have the Speech Therapist see her. MEDICATIONS: Present medications are listed as: 1. Albuterol via nebulizer 4 times a day. 2. Aspirin 325 mg a day. She is not on Coumadin because she has had some significant bleeding. 3. Calcium carbonate. 4. Vitamin D. 5. Ferrous sulfate 325 mg a day. 6. Furosemide 80 mg twice a day. 7. Eye drops. 8. Magnesium oxide 400 mg a day. 9. Metoprolol succinate 25 mg a day. 10. She does very well with oxycodone 5/325 half a tablet as needed. This does not cause her to be drowsy and does help her pain. 11. Potassium chloride 40 mEq twice a day. PHYSICAL EXAMINATION: VITAL SIGNS: She was tachypneic with a respiratory rate of 32 per minute. The heart rate was 100 per minute and irregular. The blood pressure was 112/80. LUNGS: The left lung was clear. The right lung had absent breath sounds in the infrascapular area. HEART: The heart sounds were normal. There was a grade 1/6 systolic murmur. There was no S3. ABDOMEN: Soft. EXTREMITIES: There is no edema of the legs. The oxygen saturation was as described above. IMPRESSION: 1. Lkgzv-lo-omzazor diastolic congestive heart failure. 2. Permanent atrial fibrillation with controlled ventricular response. 3. Severe hypoxia. 4. Right pleural effusion: Probably due to the congestive heart failure. Also need to rule out underlying pneumonia and the possibility of pulmonary aspiration. PLAN: As stated above, we will request thoracentesis be done by Interventional Radiology. Thereafter, we will check her with 3 to 6-minute walk. Her lab investigations were satisfactory, with a hemoglobin of 12. The sodium was 143, potassium 4.6. Despite the high dose of Lasix, the BUN was 17, creatinine was 1. The proBNP was elevated to 3019. The liver function tests were normal. The albumin was 3.1. A chest x-ray showed right lower lobe opacity consistent with pleural effusion and perhaps consolidation. SANTIAGO RAY MD DR: MICKI/jacques JOB#: [id number] / [id number]
[2016-11-02 23:15] VITALS: BP 110/78
[2016-11-03] VITALS (7 sets, daily range): BP systolic 104–143; BP diastolic 58–101
[2016-11-03] MEDS: OXYCODONE/APAP 5/325 TABLET. PO PRN ×2 (02:56→20:55)
[2016-11-03] MEDS: MAGNESIUM OXIDE 400 MG TABLET PO SCH (10:22)
[2016-11-03] MEDS: ASPIRIN 325 MG TABLET PO SCH (10:22)
[2016-11-03] MEDS: FERROUS SULFATE 325 MG TABLET PO SCH (10:23)
[2016-11-03] MEDS: POTASSIUM CHLORIDE 10 MEQ TABLET.ER. PO SCH ×2 (10:23→16:55)
[2016-11-03] MEDS: METOPROLOL SUCC 24HR ER 25 MG TAB.ER.24H. PO SCH (10:23)
[2016-11-03] MEDS: FUROSEMIDE 80 MG TABLET PO SCH ×2 (10:23→16:55)
[2016-11-03] MEDS: CHOLECALCIFEROL (VITAMIN D3) 1,000 UNIT TABLET PO SCH (10:23)
[2016-11-03] MEDS: CALCIUM CARBONATE 500 MG TABLET PO SCH ×3 (10:23→16:55)
[2016-11-03] MEDS: ALBUTEROL SULFATE 2.5 MG/3 ML NEBU. NEB SCH ×4 (11:10→20:53)
[2016-11-03] MEDS ORDERED: ALBUTEROL SULFATE 2.5 MG/3 ML NEBU. NEB PRN (12:15)
[2016-11-03 12:16] LABS: INR 1.3 (0.8-1.1); PROTHROMBIN TIME PATIENT 15.5 SEC (11.7-14.0)
[2016-11-03] MEDS ORDERED: LIDOCAINE 1% / SOD BICARB 8.4% 20 ML VIAL. IJ ONE (14:10)
--- NOTE | 2016-11-03 15:05 | PDOC ---
BRIEF OPERATIVE NOTE Pre-Op Diagnosis right pleural effusion Post-Op Diagnosis same Procedure Performed Right thoracentesis Surgeon Tank Anesthesia Type: Local Findings 1200 cc thin yellow fluid Complications No immediate GRISELDA ALEXANDER MD Nov 03, 2016 15:04
--- NOTE | 2016-11-03 15:40 | RAD ---
Indication post thoracentesis. Assess for potential complication The patient is status post right thoracentesis. Comparison is made to a study one day earlier. There is less right pleural fluid than on the previous exam compatible with the interval thoracentesis. No complication is seen and specifically no pneumothorax is apparent. IMPRESSION: No evidence of pneumothorax post thoracentesis
--- NOTE | 2016-11-03 16:33 | RAD ---
CT of the chest without contrast, 11/03/2016: History: Right chest opacity Noncontrast scans were obtained as requested. Comparison is made to a study from 05/20/2015. There is a moderate volume of right-sided pleural fluid, increased since the previous study. There is nearly complete atelectasis of the right lower and middle lobes. There is a small amount of left-sided pleural fluid. There is minimal underlying atelectasis posteriorly in the left lower lobe. The aerated portions of both lungs show no significant consolidation. There is marked generalized cardiomegaly. A transvenous pacing lead extends into the right ventricle. There is moderate calcific plaquing of the thoracic aorta without evidence of aneurysm. Moderate coronary artery calcifications are present. Small mediastinal lymph nodes are evident without pathologic enlargement. The visualized portion of the upper abdomen demonstrates a small volume of ascites. There is mild streaky subcutaneous edema compatible with anasarca. There is a 2.7 cm mass within the lateral aspect of the right breast. It is of low to medium density. A larger fluid collection was present in this region on the previous study. This may represent a residual hematoma. Recurrent tumor at a surgical site cannot be excluded. IMPRESSION: 1. Marked generalized cardiomegaly with coronary artery calcifications. 2. Moderate size right pleural effusion with nearly complete underlying atelectasis of the right middle and lower lobes. 3. Small left pleural effusion. 4. Small volume of ascites. 5. Small right breast mass as described above. PQRS Compliance Statement: One or more of the following individualized dose reduction techniques were utilized for this examination: 1. Automated exposure control 2. Adjustment of the mA and/or kV according to patient size 3. Use of iterative reconstruction technique
--- NOTE | 2016-11-03 16:35 | RAD ---
Ultrasound Guided Thoracentesis, right side Indication: 86-year-old with right pleural effusion Sedation: Local anesthesia only Sterility: The procedure was performed in its entirety using appropriate elements of sterile technique. Technique and Findings: Following informed consent, the patient was prepped and draped in the usual sterile fashion. Ultrasound interrogation of the area of interest was performed revealing the presence of a pleural fluid collection. 1% Lidocaine was used to achieve local anesthesia over the area of interest. A small dermatotomy was made and a 5F Bzt-t-udrqrily catheter was advanced under ultrasound guidance into the pleural space [id number] cc's of thin yellow fluid was removed. The catheter was then removed and hemostasis was achieved with manual compression. Impression: US thoracentesis as described.
--- NOTE | 2016-11-03 20:02 | PDOC ---
Provider Note Provider Note 1200 mL fluid was removed with the thoracentesis. Was not sent for analysis but is probably a transudate from CHF. Await Dr. Potter's opinion. She feels better. Plan a 6 minute walk tomorrow and consider discharge tomorrow. Lump in the breast noted on CT scan has been documented before. His been evaluated by the surgeon and this was thought to be due to a cyst. Will review x-rays with the radiologist tomorrow. SANTIAGO RAY MD Nov 03, 2016 20:02
[2016-11-04 03:00] VITALS: BP 115/63
[2016-11-04 07:00] VITALS: BP 122/87
[2016-11-04] MEDS: ALBUTEROL SULFATE 2.5 MG/3 ML NEBU. NEB SCH ×2 (07:12→10:51)
[2016-11-04] MEDS: CALCIUM CARBONATE 500 MG TABLET PO SCH ×2 (09:20→14:11)
[2016-11-04] MEDS: MAGNESIUM OXIDE 400 MG TABLET PO SCH (09:20)
[2016-11-04] MEDS: FERROUS SULFATE 325 MG TABLET PO SCH (09:20)
[2016-11-04] MEDS: FUROSEMIDE 80 MG TABLET PO SCH ×2 (09:20→14:11)
[2016-11-04] MEDS: CHOLECALCIFEROL (VITAMIN D3) 1,000 UNIT TABLET PO SCH (09:20)
[2016-11-04] MEDS: ASPIRIN 325 MG TABLET PO SCH (09:20)
[2016-11-04] MEDS: METOPROLOL SUCC 24HR ER 25 MG TAB.ER.24H. PO SCH (09:21)
[2016-11-04] MEDS: POTASSIUM CHLORIDE 10 MEQ TABLET.ER. PO SCH (09:21)
[2016-11-04] MEDS: OXYCODONE/APAP 5/325 TABLET. PO PRN (09:26)
[2016-11-04 10:34] VITALS: BP 111/94
== END 2016-11-04 13:35 | disposition home or self-care (01) | DRG 292 ==
LOC: 4 NORTH 15:08
PROVIDERS: ADMIT Specialist; ATTEND Specialist
PROC: 0W993ZX Drainage of Right Pleural Cavity, Percutaneous Approach, Diagnostic (ICD-10-PCS; principal; 2016-11-03)
DX: I50.33 Acute on chronic diastolic (congestive) heart failure (principal); J90 Pleural effusion, not elsewhere classified; I27.2 Other secondary pulmonary hypertension; I34.0 Nonrheumatic mitral (valve) insufficiency; I48.2 Chronic atrial fibrillation; R09.02 Hypoxemia; Z91.048 Other nonmedicinal substance allergy status
CPT/HCPCS: 32555; 36415; 71010; 71020; 71250; 80053; 83880; 85007; 85027; 85610; 87641; 94620; 94640; 94760; J1940; 92610

== ENCOUNTER 2016-11-19 18:52 | Inpatient (IN) | payer MEDICARE, OTHER ==
[~2016-11-19] VITALS: Ht 162.6 cm; Wt 59.0 kg
[~2016-11-19 18:52] MED LIST changes: +BRIN10DR EACHEYE; +CALC-52 PO; +FURO80TA72 PO; +LUTE1CAP PO
[2016-11-19 19:49] LABS: BASO # 0.1 x10^3/uL (0.0-0.2); BASO % 1 % (0-3); EOS % 2 % (0-3); HEMATOCRIT 38.8 % (36.0-47.0); HEMOGLOBIN 12.4 g/dL (12.0-15.5); LYMPH # 0.9 x10^3/uL (1.0-4.8); LYMPH % 18 % (24-48); MEAN CORPUSCULAR HEMOGLOBIN 29 pg (25-35); MEAN CORPUSCULAR HGB CONC 32 g/dL (31-37); MEAN CORPUSCULAR VOLUME 92 fL (79-100); MONO % 20 % (0-9); NEUT % 58 % (31-73); PLATELET COUNT 140 x10^3/uL (140-400); RED BLOOD COUNT 4.24 x10^6/uL (3.50-5.40); RED CELL DISTRIBUTION WIDTH 18.4 % (11.5-14.5); WHITE BLOOD COUNT 5.3 x10^3/uL (4.0-11.0)
[2016-11-19 20:04] LABS: CALCIUM 9.3 mg/dL (8.5-10.1); CREATININE 1.1 mg/dL (0.6-1.0); GFR 46.9; POTASSIUM 5.8 mmol/L (3.5-5.1)
[2016-11-19 20:10] LABS: HCO3 ABG 28 mmol/L (21-28); PCO2 ABG 39 mmHg (35-46); PH ABG 7.47 (7.35-7.45); PO2 ABG 79 mmHg (65-108); SAT O2 ABG 96 % (92-99)
[2016-11-19 20:11] LABS: DIRECT BILIRUBIN 0.6 mg/dL (0.0-0.2); TOTAL BILIRUBIN 1.2 mg/dL (0.2-1.0); TOTAL PROTEIN 6.6 g/dL (6.4-8.2)
[2016-11-19] MEDS ORDERED: DEXTROSE 50% 25 GM / 50ML DISP.SYRIN. IV ONE (20:30)
[2016-11-19] MEDS ORDERED: INSULIN REGULAR 100 UNIT/ML 10ML VIAL. IV ONE (20:30)
[2016-11-19] MEDS ORDERED: CALCIUM GLUCONATE 1,000 MG/10 ML VIAL IVP ONE (20:30)
--- NOTE | 2016-11-19 20:44 | PHYS DOC ---
Past Medical History Past Medical History: A-Fib, Anxiety, Arthritis, CHF, COPD, Hypertension, UTI Additional Past Medical Histor: BREAT CA, UTI SCOLOSIS, DVT, 02 AT HOME Past Surgical History: Other Additional Past Surgical Histo: R LUMPECTOMY Alcohol Use: None Drug Use: None Adult General Chief Complaint Chief Complaint: SHORTNESS OF BREATH HPI HPI Patient is a 86 year old female who presents with shortness of breath. Patient reports she has had this off and on, but it is worse than usual. Her son reports has been increasing over the past 2 days. Patient is poor historian and is unable to tell me if she is having much chest discomfort, fever, or cough ( although she is oriented x3). She does wear 2 L of O2 at baseline. Of note, patient has recent admission to the hospital during which she had thoracentesis with greater than 1 L fluid removed from right pleural space. Review of Systems Review of Systems Unable to obtain good ROS as patient is poor historian Pulmonary: Worsening SOB Current Medications Current Medications Current Medications Medications (Trade) Dose Ordered Sig/Elle Start Time Stop Time Status Last Admin Dose Admin Calcium Gluconate 1,000 mg 1X ONCE 11/19/16 20:30 11/19/16 20:31 DC 11/19/16 20:53 1,000 MG Dextrose 25 gm 1X ONCE 11/19/16 20:30 11/19/16 20:31 DC 11/19/16 20:58 25 GM Insulin Human Regular (Novolin R Vial) 10 unit 1X ONCE 11/19/16 20:30 11/19/16 20:31 DC 11/19/16 20:57 10 UNIT Allergies Allergies Allergies Coded Allergies Type Severity Reaction Last Updated Verified adhesive Allergy Intermediate 04/04/15 Yes I S O L A T I O N *CONTACT* Allergy Unknown 11/04/16 Yes Physical Exam Physical Exam Constitutional: Well developed, well nourished, non-toxic appearance HENT: Normocephalic, atraumatic, bilateral external ears normal Eyes: EOMI, conjunctiva normal, no discharge Neck: Normal range of motion, no stridor Cardiovascular: Heart rate normal, regular rhythm, no murmur Lungs & Thorax: Breath sounds diminished R lung base, increased work of breathing Abdomen: Bowel sounds normal, soft, non-distended, no TTP Skin: Warm, dry, no erythema, no rash Extremities: BLE edema, redness Neurologic: Alert and oriented X 3, no gross deficits noted Current Patient Data Vital Signs Vital Signs Date Time Temp Pulse Resp B/P Pulse Ox O2 Delivery O2 Flow Rate FiO2 11/19/16 19:09 97 82 24 117/78 85 Room Air 97.0 Lab Values Laboratory Tests Test 11/19/16 19:40 11/19/16 20:05 White Blood Count 5.3x10^3/uL (4.0-11.0) Red Blood Count 4.24x10^6/uL (3.50-5.40) Hemoglobin 12.4g/dL (12.0-15.5) Hematocrit 38.8% (36.0-47.0) Mean Corpuscular Volume 92fL (79-100) Mean Corpuscular Hemoglobin 29pg (25-35) Mean Corpuscular Hemoglobin Concent 32g/dL (31-37) Red Cell Distribution Width 18.4% (11.5-14.5) H Platelet Count 140x10^3/uL (140-400) Neutrophils (%) (Auto) 58% (31-73) Lymphocytes (%) (Auto) 18% (24-48) L Monocytes (%) (Auto) 20% (0-9) H Eosinophils (%) (Auto) 2% (0-3) Basophils (%) (Auto) 1% (0-3) Neutrophils # (Auto) 3.1x10^3uL (1.8-7.7) Lymphocytes # (Auto) 0.9x10^3/uL (1.0-4.8) L Monocytes # (Auto) 1.1x10^3/uL (0.0-1.1) Eosinophils # (Auto) 0.1x10^3/uL (0.0-0.7) Basophils # (Auto) 0.1x10^3/uL (0.0-0.2) Segmented Neutrophils % 59% (35-66) Band Neutrophils % 1% (0-9) Lymphocytes % 15% (24-48) L Monocytes % 22% (0-10) H Eosinophils % 2% (0-5) Basophils % 1% (0-3) Platelet Estimate Adequate (ADEQUATE) Anisocytosis Slight Ovalocytes Few Schistocytes Few Sodium Level 144mmol/L (136-145) Potassium Level 5.8mmol/L (3.5-5.1) H Chloride Level 104mmol/L (98-107) Carbon Dioxide Level 32mmol/L (21-32) Anion Gap 8 (6-14) Blood Urea Nitrogen 20mg/dL (7-20) Creatinine 1.1mg/dL (0.6-1.0) H Estimated GFR (Cockcroft-Gault) 46.9 Glucose Level 109mg/dL (70-99) H Calcium Level 9.3mg/dL (8.5-10.1) Total Bilirubin 1.2mg/dL (0.2-1.0) H Direct Bilirubin 0.6mg/dL (0.0-0.2) H Aspartate Amino Transferase (AST) 31U/L (15-37) Alanine Aminotransferase (ALT) 17U/L (14-59) Alkaline Phosphatase 143U/L (46-116) H Troponin I Quantitative < 0.017ng/mL (0.000-0.055) YA-Cud-O-Type Natriuretic Peptide 2645pg/mL (0-449) H Total Protein 6.6g/dL (6.4-8.2) Albumin 3.0g/dL (3.4-5.0) L O2 Saturation 96% (92-99) Arterial Blood pH 7.47 (7.35-7.45) H Arterial Blood pCO2 at Patient Temp 39mmHg (35-46) Arterial Blood pO2 at Patient Temp 79mmHg (65-108) Arterial Blood HCO3 28mmol/L (21-28) Arterial Blood Base Excess 4mmol/L (-3-3) H FiO2 40.0 Laboratory Tests 11/19/16 19:40 Laboratory Tests 11/19/16 19:40 EKG EKG EKG (my read): irregular rhythm, atrial fibrillation, rate 88, RAD, scattered TWI, similar morphology to prior 09/11/16 Radiology/Procedures Radiology/Procedures CXR (my read): Large R pleural effusion, cardiomegaly Course & Med Decision Making Course & Med Decision Making Pertinent Labs and Imaging studies reviewed. (See chart for details) Patient is 86-year-old female who presents with shortness of breath. Will check EKG, CXR, labs to evaluate. EKG similar to prior per my read. Chest x-ray shows large right pleural effusion; I believe this is the main cause for shortness of breath. Labs notable for elevated BNP and hyperkalemia. Calcium gluconate, insulin and D50, Lasix ordered. Discussed results with patient and son. Discussed with Dr. Ray, will admit under her care for further evaluation and treatment. Dragon Disclaimer Dragon Disclaimer This electronic medical record was generated, in whole or in part, using a voice recognition dictation system. Departure Departure Impression: Primary Impression: SOB (shortness of breath) Additional Impressions: Pleural effusion Hyperkalemia Disposition: ADMITTED INPATIENT Admitting Physician: Other Condition: GUARDED Referrals: SANTIAGO RAY MD (PCP) Problem Qualifiers GAUTAM MONAHAN MD Nov 19, 2016 20:44
[2016-11-19] MEDS ORDERED: ONDANSETRON PF 4 MG/2 ML VIAL. IV PRN (20:45)
[2016-11-19] MEDS ORDERED: MORPHINE SULFATE 2 MG/ML DISP.SYRIN. IV PRN (20:45)
[2016-11-19] MEDS ORDERED: ACETAMINOPHEN 325 MG TABLET. PO PRN (20:45)
[2016-11-19 20:46] LABS: % BASOS 1 % (0-3); % EOS 2 % (0-5)
[2016-11-19 20:50] LABS: ANISOCYTOSIS SLIGHT; OVALOCYTES FEW; PLT ESTIMATE ADEQUATE (ADEQUATE); SCHISTOCYTES FEW
[2016-11-19] MEDS ORDERED: FUROSEMIDE 40 MG/4 ML VIAL IVP ONE (21:00)
[2016-11-19 22:45] VITALS: BP 118/83
--- NOTE | 2016-11-20 01:39 | ACF ---
Admit Criteria Forms Admit Criteria Forms Admit Criteria Forms PLEURAL EFFUSION Clinical Indications for Admission to Inpatient Care (Place 'X' for any and all applicable criteria): Admission is indicated for ANY ONE of the following (1)(2)(3): [ ]I. Pneumonia-related effusion requiring drainage as indicated by ANY ONE of the following [A]: [ ]a) Large pleural effusion (symptomatic or greater than one-half of hemithorax) [ ]b) Loculated effusion [ ]c) Pleural thickening [ ]d) Pleural fluid analysis results, including ANY ONE of the following: [ ]i) Positive Gram stain or culture for bacteria [ ]ii) Pus [ ]iii) pH less than 7.20 [X ]II. Inpatient admission required rather than observation care (Also use Pleural Effusion: Observation Care criteria as appropriate) because of ANY ONE of the following: [ ]a) Hemodynamic instability that is severe or persistent [ ]b) Respiratory distress that is severe or persistent [ ]c) Complication of drainage (e.g., pneumothorax) that requires inpatient care [ ]d) Etiology that requires inpatient care (e.g., pulmonary embolism , trauma) [ ]e) Severe pain requiring acute inpatient management [X ]f) Supplemental O2 or respiration drug for over 24 hrs that are performable only in an inpatient setting [ ]g) Chest tube placement with active evacuation (e.g., suction, drainage) [ ]h) Pulmonary artery catheter monitoring [ ]i) Epidural analgesia (8) [ ]j) Continuous IV infusion of anticoagulation, platelet inhibitor, vasoactive, or antiarrhythmic medication. [ ]k) Other condition, treatment or monitoring requiring inpatient admission [ ]l) Immediate inpatient surgery [ ]III. Hemothorax [ ]IV. Empyema [ ]V. Pleural effusion with concomitant pneumothorax [ ]. Recurrent or malignant pleural effusion requiring pleurodesis (4) Extended stay beyond goal length of stay may be needed for (27)(28): [ ]a) Empyema or complicated parapneumonic effusion (24)(29) [ ]b) Malignant pleural effusion (4) [ ]c) Pleural effusion due to trauma or perforated esophagus [ ]d) Pleural effusion due to pulmonary embolism (30) [ ]e) Clinically significant re-expansion pulmonary edema [ ]f) Hemothorax [ ]g) Renal failure [ ]h) Trapped lung (e.g., benign or malignant thickened pleura preventing lung re-expansion) (31) [ ]i) Underlying etiology necessitates ongoing inpatient care (e.g., pneumonia, heart failure, malignancy) [ ]j) Complications of thoracentesis, thoracostomy tube, or pleural cath. placement The original [facility] content created by [facility] has been revised. The portions of the content which have been revised are identified through the use of italic text or in bold, and [facility] has neither reviewed nor approved the modified material. All other unmodified content is copyright [facility]. Please see references footnoted in the original [facility] edition 2016 KAMALJIT LOVE Nov 20, 2016 01:39
[2016-11-20 02:45] VITALS: BP 123/82
[2016-11-20 03:35] LABS: BASO % 1 % (0-3); EOS % 2 % (0-3); HEMATOCRIT 38.7 % (36.0-47.0); HEMOGLOBIN 12.2 g/dL (12.0-15.5); LYMPH # 0.8 x10^3/uL (1.0-4.8); LYMPH % 13 % (24-48); MEAN CORPUSCULAR HEMOGLOBIN 29 pg (25-35); MEAN CORPUSCULAR HGB CONC 32 g/dL (31-37); MEAN CORPUSCULAR VOLUME 92 fL (79-100); MONO % 17 % (0-9); NEUT % 68 % (31-73); PLATELET COUNT 135 x10^3/uL (140-400); RED BLOOD COUNT 4.22 x10^6/uL (3.50-5.40); RED CELL DISTRIBUTION WIDTH 17.6 % (11.5-14.5); WHITE BLOOD COUNT 6.1 x10^3/uL (4.0-11.0)
[2016-11-20 03:50] LABS: CALCIUM 9.2 mg/dL (8.5-10.1); CREATININE 1.2 mg/dL (0.6-1.0); GFR 42.4; POTASSIUM 5.2 mmol/L (3.5-5.1)
[2016-11-20 07:55] VITALS: BP 109/78
[2016-11-20] MEDS ORDERED: FUROSEMIDE 20 MG/2 ML VIAL IVP ONE (08:15)
--- NOTE | 2016-11-20 08:27 | PDOC ---
Provider Note Provider Note [id number] acute on chronic resp fail abnl cxr thoracentesis lasix see orders FITZ CALIX MD Nov 20, 2016 08:27
--- NOTE | 2016-11-20 08:45 | RAD ---
Indication: Severely short of breath, cough, COPD. Technique: Upright portable chest radiograph was obtained. Comparison is from November 03, 2016. Findings: Large right pleural effusion with associated atelectasis or less likely infiltrate is noted. There is cardiomegaly. There is no definite heart failure. Pacemaker is noted. There is atheromatous disease in the thoracic aorta. Impression: Large right pleural effusion. Cardiomegaly.
--- NOTE | 2016-11-20 08:45 | EKG ---
[facility] [address] [place] [address] Test Date: 2016-11-19 Test Time: 19:30:43 Pat Name: ALICE LEVY Department: Room: 205 1 Gender: F Picu Nurse: : [id number] Requested By: GAUTAM MONAHAN Order Number: [id number] Reading MD: Mary Jo Castaneda Measurements Intervals [place] Rate: 88 P: 0 ME: 206 QRS: 138 QRSD: 90 T: -26 QT: 374 QTc: 456 Interpretive Statements SINUS RHYTHM ABNORMAL RIGHT AXIS DEVIATION CONSIDER RIGHT VENTRICULAR HYPERTROPHY QRS(T) CONTOUR ABNORMALITY CONSISTENT WITH HIGH LATERAL INFARCT PROBABLY OLD T ABNORMALITY IN ANTEROSEPTAL LEADS INFERIOR LEADS RI6.01 Unconfirmed report Compared to ECG 09/11/2016 16:34:42 Electronically Signed On 11-20-2016 20:26:20 CDT by Mary Jo Castaneda
[2016-11-20] MEDS: DORZOLAMIDE 2% OPHTH SOLUTION 10ML BOTTLE. OU SCH (09:00)
[2016-11-20] MEDS: ALBUTEROL SULFATE 2.5 MG/3 ML NEBU. NEB SCH ×4 (09:27→20:59)
--- NOTE | 2016-11-20 09:29 | CONS ---
DATE OF CONSULTATION: 11/20/2016 I was asked to see this 86-year-old lady for eoicg-ri-aueexnr respiratory failure. HISTORY OF PRESENT ILLNESS: She is a lifelong nonsmoker, although she has had exposure to secondhand smoking. She does have wheezing at times. She has had diastolic CHF. She had thoracentesis on 11/03/16 and 1 liter of fluid was removed from right pleural space, which was transudate. Son is at the bedside. She has had cough. She has gained weight. Her son tried to increase her Lasix dose. She denies chest pain. She has runny nose. PAST MEDICAL HISTORY: CHF, history of breast cancer, atrial fibrillation, anxiety, asthma and hypertension. SOCIAL HISTORY: Nonsmoker. FAMILY HISTORY: Positive for hypertension. REVIEW OF SYSTEMS: As mentioned as above, other systems otherwise negative. ALLERGIES: ADHESIVE. MEDICATIONS: Currently, she is on Lasix p.o. alb/Atrovent nebulizer, aspirin, calcium, Cipro eye drops, ferrous sulfate, insulin, metoprolol and multivitamin. PHYSICAL EXAMINATION: GENERAL: This is an elderly lady. VITAL SIGNS: Her O2 saturation on 5 liters of oxygen 96%, respiratory rate 24, heart rate 96, blood pressure 123/82, temperature 97.6. HEENT: Normocephalic, atraumatic. Pupils are equal, round and reactive to light. Throat is clear. Nose: There is inflamed mucosa. NECK: Positive JVD. No lymphadenopathy. CARDIOVASCULAR: Irregularly irregular rhythm. CHEST: Inspection is normal. LUNGS: There are bibasilar crackles, dullness at the right base. ABDOMEN: Soft, bowel sounds are good. There is no mass. EXTREMITIES: There is no edema. LYMPHATICS: There is no lymphadenopathy. NEUROLOGIC: Alert and oriented. SKIN: Chronic changes. LABORATORY DATA: I reviewed the following lab data: Chest x-ray shows right effusion, cardiomegaly. Sodium 145, potassium 5.2, chloride 106, CO2 of 34, glucose 122, BUN 20, creatinine 1.2. BNP 2645. Troponin less than 0.01. WBC 6.1, hemoglobin 12.2, platelets 135. Blood gas pH 7.47, pCO2 of 39, pO2 of 79, 40% FiO2. IMPRESSION: 1. Jppiz-fq-jdtwuav respiratory failure, multifactorial in etiology. 2. Abnormal chest x-ray. 3. Right pleural effusion transudate secondary to ynots-zl-gtvffbj diastolic congestive heart failure. 4. Acute diastolic congestive heart failure. 5. Wheezing, asthma, ? chronic obstructive pulmonary disease. 6. Atrial fibrillation. 7. History of breast cancer. 8. Hypertension. PLAN AND RECOMMENDATIONS: 1. Titrate FiO2 to keep O2 saturation 92%. 2. I will give her Lasix 20 mg IV now. 3. I do recommend the right thoracentesis. 4. Keep intake less than output. Monitor potassium and creatinine. 5. Bronchodilators. 6. Protonix for stress ulcer prophylaxis. 7. Start deep venous thrombosis prophylaxis after thoracentesis. 8. The findings and recommendations were discussed with the patient her son, they understood and agreed to proceed with the plan. Thank you very much for allowing me to participate in care of this very nice lady. FITZ CALIX M.D. DR: Bertin JOB#: [id number] / [id number] DAV
[2016-11-20] MEDS: FERROUS SULFATE 325 MG TABLET PO SCH (09:34)
[2016-11-20] MEDS: MULTIVITAMIN EYE FORMULA CAPSULE. PO SCH (09:35)
[2016-11-20] MEDS: CHOLECALCIFEROL (VITAMIN D3) 1,000 UNIT TABLET PO SCH (09:35)
[2016-11-20] MEDS: FUROSEMIDE 40 MG TABLET PO SCH ×2 (09:35→13:22)
[2016-11-20] MEDS: ASPIRIN 325 MG TABLET PO SCH (09:35)
[2016-11-20] MEDS: CALCIUM CARBONATE 500 MG TABLET PO SCH ×2 (09:35→13:22)
[2016-11-20] MEDS: MAGNESIUM CHLORIDE ER 64 MG TABLET.ER PO SCH ×2 (09:35)
[2016-11-20] MEDS: METOPROLOL SUCC 24HR ER 25 MG TAB.ER.24H. PO SCH (09:36)
[2016-11-20] MEDS: LATANOPROST 0.005% OPHTH SOLUTION 2.5ML BOTTLE. OU SCH (09:36)
[2016-11-20] MEDS: CIPROFLOXACIN 0.3% OPHTH SOLUTION 2.5ML BOTTLE. OD SCH ×4 (09:36→21:21)
[2016-11-20 10:33] LABS: INR 1.4 (0.8-1.1)
[2016-11-20 10:41] VITALS: BP 100/73
--- NOTE | 2016-11-20 12:15 | RAD ---
Indication: Post thoracentesis. Technique: AP portable chest radiograph was obtained. Comparison is from one day earlier. Findings: There is no pneumothorax post right thoracentesis. Minimal calcified apical scarring versus pleural plaque is noted. There is a small residual right effusion. There is basilar atelectasis or scarring. There is cardiomegaly. There is no definite heart failure. Pacemaker is noted. Impression: No evidence of pneumothorax post thoracentesis.
--- NOTE | 2016-11-20 12:18 | PDOC ---
Provider Note Provider Note She underwent a thoracentesis today.1 000 cc of light yellow fluid was removed. This is being sent for analysis It is probably a transudate. Continue to diurese. She feels much better. Serum potassium is now 5.2. SANTIAGO RAY MD Nov 20, 2016 12:18
[2016-11-20 13:15] LABS: TOTAL PROTEIN 6.7 g/dL (6.4-8.2)
[2016-11-20 13:45] LABS: BF CLARITY CLOUDY; BF COLOR YELLOW
[2016-11-20 14:08] VITALS: BP 105/75
--- NOTE | 2016-11-20 14:15 | RAD ---
Indication: Right pleural effusion Procedure: The procedure, its risks and benefits, and potential complications were discussed with the patient. Specific risks discussed include but are not limited to bleeding, infection, and pneumothorax. The patient demonstrated understanding. Written consent was obtained. Timeout procedure was performed. The skin was marked posterolaterally over a large pocket of pleural fluid. The patient was prepped and draped in the usual manner. The patient was anesthetized with approximately 4 cc of 1% lidocaine. A 6 [place] Rxre-N-Zcesdhcz needle was positioned under ultrasound guidance into the fluid collection. An image documenting needle position was obtained. A small amount of ambreen fluid was withdrawn. Catheter was then connected to wall suction and a total of 1100 mL of fluid was obtained. A 60 cc syringe was sent to laboratory, orders per ordering clinician. There were no immediate complications. Post thoracentesis chest x-ray did not demonstrate a pneumothorax and has been dictated separately. Impression: 1100 mL of ambreen fluid collected via ultrasound guided thoracentesis.
[2016-11-20 19:30] VITALS: BP 103/55
[2016-11-20 23:31] VITALS: BP 103/52
[2016-11-21 03:00] VITALS: BP 110/62
[2016-11-21 06:33] LABS: CALCIUM 9.1 mg/dL (8.5-10.1); CREATININE 1.1 mg/dL (0.6-1.0); GFR 46.9; MAGNESIUM 2.2 mg/dL (1.8-2.4); POTASSIUM 3.7 mmol/L (3.5-5.1)
[2016-11-21 07:00] VITALS: BP 96/73
--- NOTE | 2016-11-21 07:43 | PDOC ---
PULMONARY PROGRESS NOTES Subjective s/p thoracentesis, sob, better, on 02, has occ cough, no pain Vitals Vital Signs Date Time Temp Pulse Resp B/P Pulse Ox O2 Delivery O2 Flow Rate FiO2 11/21/16 03:00 98.4 74 22 110/62 98 Nasal Cannula 4.0 98.4 Comments ros as mentioned as above other sys otherwise neg General: Alert, Oriented X4, No acute distress Lungs: Crackles, Other (dull r base) Cardiovascular: S1, S2 Abdomen: Soft, Non-tender Neuro Exam: Alert, Oriented Extremities: No Edema Skin: Warm Labs Laboratory Tests Test 11/19/16 19:40 11/19/16 20:05 11/20/16 03:00 11/20/16 08:40 White Blood Count 5.3x10^3/uL (4.0-11.0) 6.1x10^3/uL (4.0-11.0) Red Blood Count 4.24x10^6/uL (3.50-5.40) 4.22x10^6/uL (3.50-5.40) Hemoglobin 12.4g/dL (12.0-15.5) 12.2g/dL (12.0-15.5) Hematocrit 38.8% (36.0-47.0) 38.7% (36.0-47.0) Mean Corpuscular Volume 92fL (79-100) 92fL (79-100) Mean Corpuscular Hemoglobin 29pg (25-35) 29pg (25-35) Mean Corpuscular Hemoglobin Concent 32g/dL (31-37) 32g/dL (31-37) Red Cell Distribution Width 18.4% (11.5-14.5) 17.6% (11.5-14.5) Platelet Count 140x10^3/uL (140-400) 135x10^3/uL (140-400) Neutrophils (%) (Auto) 58% (31-73) 68% (31-73) Lymphocytes (%) (Auto) 18% (24-48) 13% (24-48) Monocytes (%) (Auto) 20% (0-9) 17% (0-9) Eosinophils (%) (Auto) 2% (0-3) 2% (0-3) Basophils (%) (Auto) 1% (0-3) 1% (0-3) Neutrophils # (Auto) 3.1x10^3uL (1.8-7.7) 4.1x10^3uL (1.8-7.7) Lymphocytes # (Auto) 0.9x10^3/uL (1.0-4.8) 0.8x10^3/uL (1.0-4.8) Monocytes # (Auto) 1.1x10^3/uL (0.0-1.1) 1.1x10^3/uL (0.0-1.1) Eosinophils # (Auto) 0.1x10^3/uL (0.0-0.7) 0.1x10^3/uL (0.0-0.7) Basophils # (Auto) 0.1x10^3/uL (0.0-0.2) 0.0x10^3/uL (0.0-0.2) Segmented Neutrophils % 59% (35-66) Band Neutrophils % 1% (0-9) Lymphocytes % 15% (24-48) Monocytes % 22% (0-10) Eosinophils % 2% (0-5) Basophils % 1% (0-3) Platelet Estimate Adequate (ADEQUATE) Anisocytosis Slight Ovalocytes Few Schistocytes Few Sodium Level 144mmol/L (136-145) 145mmol/L (136-145) Potassium Level 5.8mmol/L (3.5-5.1) 5.2mmol/L (3.5-5.1) Chloride Level 104mmol/L (98-107) 106mmol/L (98-107) Carbon Dioxide Level 32mmol/L (21-32) 34mmol/L (21-32) Anion Gap 8 (6-14) 5 (6-14) Blood Urea Nitrogen 20mg/dL (7-20) 20mg/dL (7-20) Creatinine 1.1mg/dL (0.6-1.0) 1.2mg/dL (0.6-1.0) Estimated GFR (Cockcroft-Gault) 46.9 42.4 Glucose Level 109mg/dL (70-99) 122mg/dL (70-99) Calcium Level 9.3mg/dL (8.5-10.1) 9.2mg/dL (8.5-10.1) Total Bilirubin 1.2mg/dL (0.2-1.0) Direct Bilirubin 0.6mg/dL (0.0-0.2) Aspartate Amino Transf (AST/SGOT) 31U/L (15-37) Alanine Aminotransferase (ALT/SGPT) 17U/L (14-59) Alkaline Phosphatase 143U/L (46-116) Troponin I Quantitative < 0.017ng/mL (0.000-0.055) < 0.017ng/mL (0.000-0.055) SF-Fck-Q-Type Natriuretic Peptide 2645pg/mL (0-449) Total Protein 6.6g/dL (6.4-8.2) 6.7g/dL (6.4-8.2) Albumin 3.0g/dL (3.4-5.0) O2 Saturation 96% (92-99) Arterial Blood pH 7.47 (7.35-7.45) Arterial Blood pCO2 at Patient Temp 39mmHg (35-46) Arterial Blood pO2 at Patient Temp 79mmHg (65-108) Arterial Blood HCO3 28mmol/L (21-28) Arterial Blood Base Excess 4mmol/L (-3-3) FiO2 40.0 Lactate Dehydrogenase 278U/L (81-234) Test 11/20/16 08:50 11/20/16 10:00 11/20/16 11:46 11/21/16 05:10 Troponin I Quantitative 0.032ng/mL (0.000-0.055) Prothrombin Time 16.0SEC (11.7-14.0) Prothromb Time International Ratio 1.4 (0.8-1.1) Activated Partial Thromboplast Time 34SEC (24-38) Body Fluid Source Pleural Body Fluid Color Yellow Body Fluid Clarity Cloudy Body Fluid Nucleated Cells 4850/cmm Body Fluid Mononuclear WBCs (%) 92% Body Fluid Polymorphonuclear Cells 8% Body Fluid Total RBCs Counted 110/cmm Sodium Level 148mmol/L (136-145) Potassium Level 3.7mmol/L (3.5-5.1) Chloride Level 106mmol/L (98-107) Carbon Dioxide Level 34mmol/L (21-32) Anion Gap 8 (6-14) Blood Urea Nitrogen 18mg/dL (7-20) Creatinine 1.1mg/dL (0.6-1.0) Estimated GFR (Cockcroft-Gault) 46.9 Glucose Level 83mg/dL (70-99) Calcium Level 9.1mg/dL (8.5-10.1) Magnesium Level 2.2mg/dL (1.8-2.4) Laboratory Tests Test 11/20/16 08:40 11/20/16 08:50 11/20/16 10:00 11/20/16 11:46 Lactate Dehydrogenase 278U/L (81-234) Total Protein 6.7g/dL (6.4-8.2) Troponin I Quantitative 0.032ng/mL (0.000-0.055) Prothrombin Time 16.0SEC (11.7-14.0) Prothromb Time International Ratio 1.4 (0.8-1.1) Activated Partial Thromboplast Time 34SEC (24-38) Body Fluid Source Pleural Body Fluid Color Yellow Body Fluid Clarity Cloudy Body Fluid Nucleated Cells 4850/cmm Body Fluid Mononuclear WBCs (%) 92% Body Fluid Polymorphonuclear Cells 8% Body Fluid Total RBCs Counted 110/cmm Test 11/21/16 05:10 Sodium Level 148mmol/L (136-145) Potassium Level 3.7mmol/L (3.5-5.1) Chloride Level 106mmol/L (98-107) Carbon Dioxide Level 34mmol/L (21-32) Anion Gap 8 (6-14) Blood Urea Nitrogen 18mg/dL (7-20) Creatinine 1.1mg/dL (0.6-1.0) Estimated GFR (Cockcroft-Gault) 46.9 Glucose Level 83mg/dL (70-99) Calcium Level 9.1mg/dL (8.5-10.1) Magnesium Level 2.2mg/dL (1.8-2.4) Medications Active Scripts Medications Dose Route/Sig Days Date Category Calcium 600 + Vit D 200 Tablet (Calcium Carbonate/Vitamin D3) 1 Each Tablet 1 Each PO DAILY 11/02/16 Reported Azopt (Brinzolamide) 10 Ml Drops.susp 1 Drop EACHEYE DAILY 11/02/16 Reported Lutein-Zeaxanthin 25-5 Mg Sfgl (Lutein/Zeaxanthin) 1 Each Capsule 1 Each PO DAILY 11/02/16 Reported Lasix (Furosemide) 80 Mg Tablet 1 Tab PO BID 11/02/16 Reported Potassium Chloride 10 Meq Capsule.er 40 Meq PO BID 07/19/16 Reported Aspirin 325 Mg Tablet 1 Tab PO DAILY 07/19/16 Reported Percocet 5-325 Mg Tablet (Oxycodone/Acetaminophen) 1 Each Tablet 0.5 Tab PO Q8HRS PRN 07/19/16 Reported Toprol Xl (Metoprolol Succinate) 25 Mg Tab.er.24h 1.5 Tab PO DAILY 07/19/16 Reported Magnesium Oxide 400 Mg Tablet 500 Mg PO DAILY 07/19/16 Reported Albuterol Sulfate Neb Soln (Albuterol Sulfate) 2.5 Mg/3 Ml Vial.neb 1 Vial NEB QID 11/30/15 Reported Feosol (Ferrous Sulfate) 325 Mg Tablet 325 Mg PO DAILY 08/30/15 Rx Cetirizine Hcl 10 Mg Tablet 1 Tab PO DAILY 03/13/15 Reported Tums (Calcium Carbonate) 200 Mg Tab.chew 200 Mg PO PRN Q2HRS PRN 12/27/14 Reported Travatan Z (Travoprost) 5 Ml Drops 1 Drop EACHEYE QHS 08/12/14 Reported Comments cxr reviewed. There is no pneumothorax post right thoracentesis. Minimal calcified apical scarring versus pleural plaque is noted. There is a small residual right effusion. There is basilar atelectasis or scarring. There is cardiomegaly. There is no definite heart failure. Pacemaker is noted. Impression . IMPRESSION: 1. Naqjj-eh-urmesly respiratory failure, multifactorial in etiology. 2. Abnormal chest x-ray. 3. Right pleural effusion transudate secondary to vpens-ot-ytxnmki diastolic congestive heart failure. 4. Acute diastolic congestive heart failure. 5. Wheezing, asthma, ? chronic obstructive pulmonary disease. 6. Atrial fibrillation. 7. History of breast cancer. 8. Hypertension. Plan . PLAN AND RECOMMENDATIONS: 1. Titrate FiO2 to keep O2 saturation 92%. 2. keep I<O, lasix 3. s/p right thoracentesis. 4. Keep intake less than output. Monitor potassium and creatinine. 5. Bronchodilators. 6. Protonix for stress ulcer prophylaxis. 7. start lovenox deep venous thrombosis prophylaxis 8. The findings and recommendations were discussed with the patient her son, they understood and agreed to proceed with the plan. ok to dc from pulm standpoint FITZ CALIX MD Nov 21, 2016 07:43
[2016-11-21] MEDS: ALBUTEROL SULFATE 2.5 MG/3 ML NEBU. NEB SCH ×4 (07:49→19:22)
[2016-11-21] MEDS: MAGNESIUM CHLORIDE ER 64 MG TABLET.ER PO SCH ×2 (08:18)
[2016-11-21] MEDS: MULTIVITAMIN EYE FORMULA CAPSULE. PO SCH (08:18)
[2016-11-21] MEDS: CHOLECALCIFEROL (VITAMIN D3) 1,000 UNIT TABLET PO SCH (08:19)
[2016-11-21] MEDS: METOPROLOL SUCC 24HR ER 25 MG TAB.ER.24H. PO SCH (08:19)
[2016-11-21] MEDS: ASPIRIN 325 MG TABLET PO SCH (08:19)
[2016-11-21] MEDS: CALCIUM CARBONATE 500 MG TABLET PO SCH ×2 (08:19→11:34)
[2016-11-21] MEDS: CIPROFLOXACIN 0.3% OPHTH SOLUTION 2.5ML BOTTLE. OD SCH ×4 (08:24→21:01)
[2016-11-21] MEDS: DORZOLAMIDE 2% OPHTH SOLUTION 10ML BOTTLE. OU SCH (08:24)
[2016-11-21] MEDS: FERROUS SULFATE 325 MG TABLET PO SCH (08:25)
[2016-11-21] MEDS: FUROSEMIDE 40 MG TABLET PO SCH ×2 (08:25→14:32)
[2016-11-21 11:22] VITALS: BP 100/69
[2016-11-21 14:37] VITALS: BP 103/77
--- NOTE | 2016-11-21 15:04 | PDOC ---
Provider Note Provider Note She is still quite tachypneic. I'm not sure whether this is just a mannerism She says she is breathing better. Oxygen saturation remains normal. Blood pressure is somewhat low in the 80s and 90s. She has in the past refused to go to assisted facility. Will ambulate in the room before discharge. Also discuss with pulmonary as to what we do regarding the recurrent pleural effusion. The chemistry that has that was sent out on the fluid is not yet available. Lungs showed decreased breath sounds on both sides. SANTIAGO RAY MD Nov 21, 2016 15:04
[2016-11-21 19:45] VITALS: BP 100/71
[2016-11-21] MEDS: LATANOPROST 0.005% OPHTH SOLUTION 2.5ML BOTTLE. OU SCH (21:10)
[2016-11-21 23:00] VITALS: BP 102/57
[2016-11-22] VITALS (7 sets, daily range): BP systolic 90–144; BP diastolic 62–88
[2016-11-22] MEDS: OXYCODONE/APAP 5/325 TABLET. PO PRN (01:03)
[2016-11-22] MEDS: ALBUTEROL SULFATE 2.5 MG/3 ML NEBU. NEB SCH ×4 (08:06→19:36)
[2016-11-22] MEDS: ASPIRIN 325 MG TABLET PO SCH (09:14)
[2016-11-22] MEDS: CHOLECALCIFEROL (VITAMIN D3) 1,000 UNIT TABLET PO SCH (09:14)
[2016-11-22] MEDS: CALCIUM CARBONATE 500 MG TABLET PO SCH ×2 (09:14→12:24)
[2016-11-22] MEDS: FERROUS SULFATE 325 MG TABLET PO SCH (09:14)
[2016-11-22] MEDS: MAGNESIUM CHLORIDE ER 64 MG TABLET.ER PO SCH ×2 (09:14)
[2016-11-22] MEDS: MULTIVITAMIN EYE FORMULA CAPSULE. PO SCH (09:14)
[2016-11-22] MEDS: FUROSEMIDE 40 MG TABLET PO SCH ×2 (09:15→17:30)
[2016-11-22] MEDS: CIPROFLOXACIN 0.3% OPHTH SOLUTION 2.5ML BOTTLE. OD SCH ×4 (09:31→21:20)
[2016-11-22] MEDS: DORZOLAMIDE 2% OPHTH SOLUTION 10ML BOTTLE. OU SCH (09:32)
--- NOTE | 2016-11-22 10:22 | PDOC ---
PROGRESS NOTES Subjective Subjective Pt reports feeling better today, continues to have SOB but reports this is closer to baseline. Denies any CP, VICENTE or vision changes at this time. Objective Objective Vital Signs Date Time Temp Pulse Resp B/P Pulse Ox O2 Delivery O2 Flow Rate FiO2 11/22/16 08:09 93 Nasal Cannula 3.0 11/22/16 07:58 97.8 100 20 98/62 97.8 Intake and Output 11/22/16 07:00 Intake Total 480 ml Output Total 725 ml Balance -245 ml Intake Oral 480 ml Output Urine Total 725 ml # Voids 1 Physical Exam Heart: Other (Irregular rate) Extremities: No cyanosis, No edema General: Alert, Cooperative Lungs: Other (use of accessory muscles for breathing with decreased air movement) Neck: Supple, No LAD Assessment Assessment Problems Medical Problems: (1) Hyperkalemia Status: Acute (2) Pleural effusion Status: Acute (3) SOB (shortness of breath) Status: Acute Plan Plan of Care No changes to cardiac medications at this time Dr. Castaneda will return in AM Comment Review of Relevant I have reviewed the following items jocelin (where applicable) has been applied. Labs Laboratory Tests Test 11/20/16 11:46 11/20/16 17:25 11/21/16 05:10 Body Fluid Source Pleural Body Fluid Color Yellow Body Fluid Clarity Cloudy Body Fluid Nucleated Cells 4850/cmm Body Fluid Mononuclear WBCs (%) 92% Body Fluid Polymorphonuclear Cells 8% Body Fluid Total RBCs Counted 110/cmm Nasal Screen MRSA (PCR) Positive (Negative) Sodium Level 148mmol/L (136-145) Potassium Level 3.7mmol/L (3.5-5.1) Chloride Level 106mmol/L (98-107) Carbon Dioxide Level 34mmol/L (21-32) Anion Gap 8 (6-14) Blood Urea Nitrogen 18mg/dL (7-20) Creatinine 1.1mg/dL (0.6-1.0) Estimated GFR (Cockcroft-Gault) 46.9 Glucose Level 83mg/dL (70-99) Calcium Level 9.1mg/dL (8.5-10.1) Magnesium Level 2.2mg/dL (1.8-2.4) Medications Current Medications Calcium Gluconate 1,000 mg 1X ONCE IVP Last administered on 3/17/17at 20:53; Start 11/19/16 at 20:30; Stop 11/19/16 at 20:31; Status DC Dextrose 25 gm 1X ONCE IV Last administered on 11/19/16 20:58; Start at 20:30; Stop 11/19/16 at 20:31; Status DC Insulin Human Regular (Novolin R Vial) 10 unit 1X ONCE IV Last administered on 11/19/16 20:57; Start 11/19/16 at 20:30; Stop 11/19/16 at 20:31; Status DC Furosemide (Lasix) 40 mg 1X ONCE IVP Last administered on 11/19/16 21:41; Start 11/19/16 at 21:00; Stop 11/19/16 at 21:01; Status DC Ondansetron HCl (Zofran) 4 mg PRN Q8HRS PRN IV NAUSEA/VOMITING; Start 11/19/16 at 20:45; Stop 11/20/16 at 20:44; Status DC Morphine Sulfate 2 mg PRN Q2HR PRN IV PAIN; Start 11/19/16 at 20:45; Stop 11/20 at 20:44; Status DC Acetaminophen (Tylenol) 650 mg PRN Q4HRS PRN PO FEVER; Start 11/19/16 at 20:45 ; Stop 11/20/16 at 20:44; Status DC Albuterol Sulfate (Ventolin Neb Soln) 2.5 mg RTQID NEB Last administered on 08:06; Start 11/20/16 at 08:00 Aspirin (Meena Aspirin) 325 mg DAILY PO Last administered on 11/22/16 09:14; Start 11/20/16 at 09:00 Dorzolamide HCl (Trusopt) 1 drop DAILY OU Last administered on 11/22/16 09:32 ; Start 11/20/16 at 09:00 Latanoprost (Xalatan) 1 drop QHS OU Last administered on 11/21/16 21:10; Start 11/20/16 at 21:00 Calcium Carbonate/ Glycine (Oscal) 500 mg BIDWBKFT/JULEE PO Last administered on 11/22/16 09:14; Start 11/20/16 at 08:00 Vitamin D (Vitamin D3) 500 unit DAILY PO Last administered on 11/22/16 09:14; Start 11/20/16 at 09:00 Ferrous Sulfate (Feosol) 325 mg DAILYWBKFT PO Last administered on 11/22/16 09 :14; Start 11/20/16 at 08:00 Furosemide (Lasix) 40 mg BID92 PO Last administered on 11/22/16 09:15; Start 11/20/16 at 09:00 Magnesium Chloride (Mag Delay) 64 mg DAILY PO Last administered on 11/22/16 09 :14; Start 11/20/16 at 09:00 Multivitamins/ Minerals (Ocuvite Lutein) 1 cap DAILY PO Last administered on 09:14; Start 11/20/16 at 09:00 Metoprolol Succinate (Toprol Xl) 25 mg DAILY PO Last administered on 11/21/16 08:19; Start 11/20/16 at 09:00 Oxycodone/ Acetaminophen (Percocet 5/325) 0.25 tab PRN Q8HRS PRN PO SEVERE PAIN Last administered on 11/22/16 01:03; Start 11/19/16 at 21:45 Ciprofloxacin 1 drop QID OD Last administered on 11/22/16 09:31; Start at 09:00 Furosemide (Lasix) 20 mg 1X ONCE IVP Last administered on 11/20/16 09:38; Start 11/20/16 at 08:15; Stop 11/20/16 at 08:22; Status DC Active Scripts Active Feosol (Ferrous Sulfate) 325 Mg Tablet 325 Mg PO DAILY Reported Calcium 600 + Vit D 200 Tablet (Calcium Carbonate/Vitamin D3) 1 Each Tablet 1 Each PO DAILY Azopt (Brinzolamide) 10 Ml Drops.susp 1 Drop EACHEYE DAILY Lutein-Zeaxanthin 25-5 Mg Sfgl (Lutein/Zeaxanthin) 1 Each Capsule 1 Each PO DAILY Lasix (Furosemide) 80 Mg Tablet 1 Tab PO BID Potassium Chloride 10 Meq Capsule.er 40 Meq PO BID Aspirin 325 Mg Tablet 1 Tab PO DAILY Percocet 5-325 Mg Tablet (Oxycodone/Acetaminophen) 1 Each Tablet 0.5 Tab PO Q8HRS PRN Toprol Xl (Metoprolol Succinate) 25 Mg Tab.er.24h 1.5 Tab PO DAILY Magnesium Oxide 400 Mg Tablet 500 Mg PO DAILY Albuterol Sulfate Neb Soln (Albuterol Sulfate) 2.5 Mg/3 Ml Vial.neb 1 Vial NEB QID Cetirizine Hcl 10 Mg Tablet 1 Tab PO DAILY Tums (Calcium Carbonate) 200 Mg Tab.chew 200 Mg PO PRN Q2HRS PRN Travatan Z (Travoprost) 5 Ml Drops 1 Drop EACHEYE QHS Vitals/I & O Vital Sign - Last 24 Hours 11/21/16 11/21/16 11/21/16 11/21/16 11:22 11:43 14:37 15:45 Temp 98.0 98.0 Pulse 100 95 Resp 18 B/P 100/69 103/77 Pulse Ox 95 94 96 95 O2 Delivery Nasal Cannula Nasal Cannula Nasal Cannula Nasal Cannula O2 Flow Rate 3.0 3.0 3.0 3.0 11/21/16 11/21/16 11/21/16 11/21/16 19:22 19:45 20:00 23:00 Temp 97.8 98.2 97.8 98.2 Pulse 70 66 Resp 18 B/P 100/71 102/57 Pulse Ox 96 94 93 O2 Delivery Nasal Cannula Nasal Cannula Nasal Cannula Room Air O2 Flow Rate 3.0 3.0 3.0 11/22/16 11/22/16 11/22/16 11/22/16 01:03 02:03 03:45 07:58 Temp 97.7 97.8 97.7 97.8 Pulse 103 100 Resp 20 B/P 99/66 98/62 Pulse Ox 93 96 96 96 O2 Delivery Nasal Cannula Nasal Cannula Nasal Cannula Nasal Cannula O2 Flow Rate 3.0 3.0 3.0 3.0 11/22/16 08:09 Pulse Ox 93 O2 Delivery Nasal Cannula O2 Flow Rate 3.0 Intake and Output 11/21/16 11/21/16 11/22/16 15:00 23:00 07:00 Intake Total 480 ml Output Total 100 ml 625 ml Balance -100 ml -145 ml HI LIMON MD Nov 22, 2016 10:22
--- NOTE | 2016-11-22 12:10 | PDOC ---
PULMONARY PROGRESS NOTES Subjective not more soa Vitals Vital Signs Date Time Temp Pulse Resp B/P Pulse Ox O2 Delivery O2 Flow Rate FiO2 11/22/16 11:11 97.9 85 18 118/88 94 Nasal Cannula 3.0 97.9 General: Alert Lungs: Crackles Cardiovascular: S1, S2 Abdomen: Soft, Non-tender Neuro Exam: Alert, Oriented Extremities: No Edema Skin: Warm Labs Laboratory Tests Test 11/20/16 17:25 11/21/16 05:10 Nasal Screen MRSA (PCR) Positive (Negative) Sodium Level 148mmol/L (136-145) Potassium Level 3.7mmol/L (3.5-5.1) Chloride Level 106mmol/L (98-107) Carbon Dioxide Level 34mmol/L (21-32) Anion Gap 8 (6-14) Blood Urea Nitrogen 18mg/dL (7-20) Creatinine 1.1mg/dL (0.6-1.0) Estimated GFR (Cockcroft-Gault) 46.9 Glucose Level 83mg/dL (70-99) Calcium Level 9.1mg/dL (8.5-10.1) Magnesium Level 2.2mg/dL (1.8-2.4) Medications Active Scripts Medications Dose Route/Sig Days Date Category Calcium 600 + Vit D 200 Tablet (Calcium Carbonate/Vitamin D3) 1 Each Tablet 1 Each PO DAILY 11/02/16 Reported Azopt (Brinzolamide) 10 Ml Drops.susp 1 Drop EACHEYE DAILY 11/02/16 Reported Lutein-Zeaxanthin 25-5 Mg Sfgl (Lutein/Zeaxanthin) 1 Each Capsule 1 Each PO DAILY 11/02/16 Reported Lasix (Furosemide) 80 Mg Tablet 1 Tab PO BID 11/02/16 Reported Potassium Chloride 10 Meq Capsule.er 40 Meq PO BID 07/19/16 Reported Aspirin 325 Mg Tablet 1 Tab PO DAILY 07/19/16 Reported Percocet 5-325 Mg Tablet (Oxycodone/Acetaminophen) 1 Each Tablet 0.5 Tab PO Q8HRS PRN 07/19/16 Reported Toprol Xl (Metoprolol Succinate) 25 Mg Tab.er.24h 1.5 Tab PO DAILY 07/19/16 Reported Magnesium Oxide 400 Mg Tablet 500 Mg PO DAILY 07/19/16 Reported Albuterol Sulfate Neb Soln (Albuterol Sulfate) 2.5 Mg/3 Ml Vial.neb 1 Vial NEB QID 11/30/15 Reported Feosol (Ferrous Sulfate) 325 Mg Tablet 325 Mg PO DAILY 08/30/15 Rx Cetirizine Hcl 10 Mg Tablet 1 Tab PO DAILY 03/13/15 Reported Tums (Calcium Carbonate) 200 Mg Tab.chew 200 Mg PO PRN Q2HRS PRN 12/27/14 Reported Travatan Z (Travoprost) 5 Ml Drops 1 Drop EACHEYE QHS 08/12/14 Reported Comments cxr reviewed. There is no pneumothorax post right thoracentesis. Minimal calcified apical scarring versus pleural plaque is noted. There is a small residual right effusion. There is basilar atelectasis or scarring. There is cardiomegaly. There is no definite heart failure. Pacemaker is noted. Impression . IMPRESSION: 1. Gpeyr-kd-ztzjxlr respiratory failure, multifactorial in etiology. 2. Abnormal chest x-ray. 3. Right pleural effusion transudate secondary to aummn-xj-pdtsfyy diastolic congestive heart failure. 4. Acute diastolic congestive heart failure. 5. Wheezing, asthma, ? chronic obstructive pulmonary disease. 6. Atrial fibrillation. 7. History of breast cancer. 8. Hypertension. Plan . s/p thoracentesis analysis is pending d/w Dr Biggs option of chest tube with TALC d/w son may need SNU possible D/C in RADHA HEDRICK MD Nov 22, 2016 12:10
[2016-11-22] MEDS: METOPROLOL SUCC 24HR ER 25 MG TAB.ER.24H. PO SCH (12:24)
[2016-11-22] MEDS: LATANOPROST 0.005% OPHTH SOLUTION 2.5ML BOTTLE. OU SCH (21:20)
[2016-11-23 03:20] VITALS: BP 115/70
[2016-11-23 07:15] VITALS: BP 123/77
[2016-11-23] MEDS: CALCIUM CARBONATE 500 MG TABLET PO SCH ×2 (07:59→12:55)
[2016-11-23] MEDS: FERROUS SULFATE 325 MG TABLET PO SCH (07:59)
[2016-11-23] MEDS: OXYCODONE/APAP 5/325 TABLET. PO PRN (08:00)
[2016-11-23] MEDS: ALBUTEROL SULFATE 2.5 MG/3 ML NEBU. NEB SCH ×2 (08:07→11:34)
[2016-11-23] MEDS: DORZOLAMIDE 2% OPHTH SOLUTION 10ML BOTTLE. OU SCH (08:39)
[2016-11-23] MEDS: CIPROFLOXACIN 0.3% OPHTH SOLUTION 2.5ML BOTTLE. OD SCH ×2 (08:40→12:55)
[2016-11-23] MEDS: MULTIVITAMIN EYE FORMULA CAPSULE. PO SCH (08:40)
[2016-11-23] MEDS: METOPROLOL SUCC 24HR ER 25 MG TAB.ER.24H. PO SCH (08:40)
[2016-11-23] MEDS: MAGNESIUM CHLORIDE ER 64 MG TABLET.ER PO SCH ×2 (08:40)
[2016-11-23] MEDS: FUROSEMIDE 40 MG TABLET PO SCH (08:40)
[2016-11-23] MEDS: ASPIRIN 325 MG TABLET PO SCH (08:41)
[2016-11-23] MEDS: CHOLECALCIFEROL (VITAMIN D3) 1,000 UNIT TABLET PO SCH (08:41)
[2016-11-23 10:11] VITALS: BP 103/76
--- NOTE | 2016-11-23 10:39 | PDOC ---
PULMONARY PROGRESS NOTES Subjective not more soa Vitals Vital Signs Date Time Temp Pulse Resp B/P Pulse Ox O2 Delivery O2 Flow Rate FiO2 11/23/16 10:11 97.8 92 22 103/76 96 Nasal Cannula 3.0 97.8 General: Alert Lungs: Crackles Cardiovascular: S1, S2 Abdomen: Soft, Non-tender Neuro Exam: Alert, Oriented Extremities: No Edema Skin: Warm Medications Active Scripts Medications Dose Route/Sig Days Date Category Calcium 600 + Vit D 200 Tablet (Calcium Carbonate/Vitamin D3) 1 Each Tablet 1 Each PO DAILY 11/02/16 Reported Azopt (Brinzolamide) 10 Ml Drops.susp 1 Drop EACHEYE DAILY 11/02/16 Reported Lutein-Zeaxanthin 25-5 Mg Sfgl (Lutein/Zeaxanthin) 1 Each Capsule 1 Each PO DAILY 11/02/16 Reported Lasix (Furosemide) 80 Mg Tablet 1 Tab PO BID 11/02/16 Reported Potassium Chloride 10 Meq Capsule.er 40 Meq PO BID 07/19/16 Reported Aspirin 325 Mg Tablet 1 Tab PO DAILY 07/19/16 Reported Percocet 5-325 Mg Tablet (Oxycodone/Acetaminophen) 1 Each Tablet 0.5 Tab PO Q8HRS PRN 07/19/16 Reported Toprol Xl (Metoprolol Succinate) 25 Mg Tab.er.24h 1.5 Tab PO DAILY 07/19/16 Reported Magnesium Oxide 400 Mg Tablet 500 Mg PO DAILY 07/19/16 Reported Albuterol Sulfate Neb Soln (Albuterol Sulfate) 2.5 Mg/3 Ml Vial.neb 1 Vial NEB QID 11/30/15 Reported Feosol (Ferrous Sulfate) 325 Mg Tablet 325 Mg PO DAILY 08/30/15 Rx Cetirizine Hcl 10 Mg Tablet 1 Tab PO DAILY 03/13/15 Reported Tums (Calcium Carbonate) 200 Mg Tab.chew 200 Mg PO PRN Q2HRS PRN 12/27/14 Reported Travatan Z (Travoprost) 5 Ml Drops 1 Drop EACHEYE QHS 08/12/14 Reported Comments cxr reviewed. There is no pneumothorax post right thoracentesis. Minimal calcified apical scarring versus pleural plaque is noted. There is a small residual right effusion. There is basilar atelectasis or scarring. There is cardiomegaly. There is no definite heart failure. Pacemaker is noted. Impression . IMPRESSION: 1. Sseus-tr-upqmavk respiratory failure, multifactorial in etiology. 2. Abnormal chest x-ray. 3. Right pleural effusion transudate secondary to myzkc-zg-cboxcog diastolic congestive heart failure. 4. Acute diastolic congestive heart failure. 5. Wheezing, asthma, ? chronic obstructive pulmonary disease. 6. Atrial fibrillation. 7. History of breast cancer. 8. Hypertension. Plan . s/p thoracentesis analysis is pending d/w Dr Biggs option of chest tube with TALC d/w son may need SNU possible D/C in AM RADHA PUENTES MD Nov 23, 2016 10:39
--- NOTE | 2016-11-30 23:12 | HP ---
ADMIT DATE: 11/19/2016 HISTORY OF PRESENT ILLNESS: This is an 86-year-old white female who was brought in to the Emergency Room by her son. She has been having more shortness of breath. He was concerned that the fluid was re-accumulating. This patient has had multiple hospitalizations. She has diastolic dysfunction of the left ventricle and severe mitral regurgitation. She is also in permanent atrial fibrillation. She has been in and out of the hospital for congestive heart failure. She has had thoracentesis for a large right-sided pleural effusion in 08/2015. So, she was able to go a whole year without having to repeat the thoracentesis and then came back. She has mild hypertension. There is no history of diabetes mellitus. There is no history of myocardial infarction or of a stroke. She does not smoke or drink alcohol. PRESENT MEDICATIONS: 1. Albuterol via nebulizer 4 times a day. 2. Aspirin 325 mg a day. 3. Eye drops. 4. Calcium carbonate. 5. Vitamin D. 6. Cetirizine hydrochloride 10 mg a day. 7. Ferrous sulfate. 8. Furosemide 80 mg twice a day. 9. Magnesium oxide 400 mg a day. 10. Metoprolol succinate 25 mg a day. 11. Oxycodone p.r.n. PHYSICAL EXAMINATION: GENERAL: She was very tachypneic and was using her accessory muscles of respiration. The heart rate was 100 beats per minute and irregular. Blood pressure is 140/80. LUNGS: Showed rales in the left base and decreased breath sounds on the right base. HEART: The heart sounds are normal. There is a grade 2/6 systolic murmur at the apex. ABDOMEN: Soft. EXTREMITIES: There is 1+ edema of both legs. IMPRESSION: 1. Acute on chronic diastolic congestive heart failure. 2. Mitral regurgitation. 3. Permanent atrial fibrillation. 4. Probable chronic obstructive pulmonary disease. SANTIAGO RAY MD DR: MICKI/jacques JOB#: [id number] / [id number]
== END 2016-11-23 14:16 | disposition home health service (06) | DRG 291 ==
LOC: ER 19:07 → 2 NORTH 20:42
PROVIDERS: ADMIT Specialist; ATTEND Specialist
PROC: 0W993ZZ Drainage of Right Pleural Cavity, Percutaneous Approach (ICD-10-PCS; principal; 2016-11-20)
DX: I11.0 Hypertensive heart disease with heart failure (principal); J96.20 Acute and chronic respiratory failure, unspecified whether with hypoxia or hypercapnia; J90 Pleural effusion, not elsewhere classified; I50.33 Acute on chronic diastolic (congestive) heart failure; E87.5 Hyperkalemia; I48.91 Unspecified atrial fibrillation; J44.9 Chronic obstructive pulmonary disease, unspecified; J45.909 Unspecified asthma, uncomplicated; F41.9 Anxiety disorder, unspecified; M19.90 Unspecified osteoarthritis, unspecified site; Z87.440 Personal history of urinary (tract) infections; Z88.8 Allergy status to other drugs, medicaments and biological substances; Z82.49 Family history of ischemic heart disease and other diseases of the circulatory system; Z85.3 Personal history of malignant neoplasm of breast
CPT/HCPCS: 36415; 36600; 71010; 76942; 80048; 80076; 82805; 83615; 83735; 83880; 84155; 84157; 84484; 85007; 85027; 85610; 85730; 87641; 89050; 93005; 94250; 94620; 94640; 94760; 96374; 96375; J0610; J1815; J1940; J7042; 99285-25

== ENCOUNTER 2016-11-26 15:16 | Inpatient (IN) | payer MEDICARE, OTHER ==
[~2016-11-26] VITALS: Ht 165.1 cm; Wt 61.4 kg
[2016-11-26 16:04] LABS: BASO # 0.1 x10^3/uL (0.0-0.2); BASO % 1 % (0-3); EOS % 1 % (0-3); HEMATOCRIT 40.5 % (36.0-47.0); LYMPH # 1.2 x10^3/uL (1.0-4.8); LYMPH % 18 % (24-48); MEAN CORPUSCULAR HEMOGLOBIN 29 pg (25-35); MEAN CORPUSCULAR HGB CONC 32 g/dL (31-37); MEAN CORPUSCULAR VOLUME 90 fL (79-100); MONO % 20 % (0-9); NEUT % 59 % (31-73); PLATELET COUNT 159 x10^3/uL (140-400); WHITE BLOOD COUNT 6.8 x10^3/uL (4.0-11.0)
--- NOTE | 2016-11-26 16:13 | RAD ---
Portable chest, 11/26/2016: History: Dyspnea, COPD Comparison is made to a study from 11/20/2016. A left-sided transvenous pacemaker remains in place with a single lead extending in the right ventricle. The heart is markedly enlarged. There is calcific plaquing of the aorta. The pulmonary vascularity is within normal limits. There is a moderate sized right pleural effusion which has increased in size. There is a small to moderate amount of left-sided pleural fluid which has increased slightly. There is underlying bibasilar atelectasis. IMPRESSION: 1 unchanged cardiomegaly. 2. Increasing bilateral pleural effusions, right greater than left.
[2016-11-26 16:15] LABS: CALCIUM 9.2 mg/dL (8.5-10.1); CREATININE 1.1 mg/dL (0.6-1.0); GFR 46.9; POTASSIUM 4.5 mmol/L (3.5-5.1)
--- NOTE | 2016-11-26 16:20 | EKG ---
[facility] [address] [place] [address] Test Date: 2016-11-26 Test Time: 15:36:03 Pat Name: ALICE LEVY Department: Room: Gender: F Type Caster: . : [id number] Requested By: Benedict LOZANO Order Number: [id number] Reading MD: Measurements Intervals [place] Rate: 91 P: 0 OH: 80 QRS: 135 QRSD: 88 T: -18 QT: 360 QTc: 444 Interpretive Statements SINUS RHYTHM COMPLEX(ES) WITH ABERRANT INTRAVENTRICULAR CONDUCTION ABNORMAL RIGHT AXIS DEVIATION INCOMPLETE RIGHT BUNDLE BRANCH BLOCK CONSIDER RIGHT VENTRICULAR HYPERTROPHY T ABNORMALITY IN ANTEROSEPTAL LEADS INFERIOR LEADS ABNORMAL ECG RI6.01 No previous ECG available for comparison
--- NOTE | 2016-11-26 16:32 | RAD ---
Right upper extremity venous ultrasound, 11/26/2016: History: Right hand swelling Duplex evaluation of the major veins in the right upper extremity was performed including grayscale, color-flow and spectral Doppler analysis. The right subclavian, axillary, brachial and basilic veins are patent. The cephalic vein was not visualized. Although not formally evaluated, diminished blood flow was noted in the distal right radial and ulnar arteries. IMPRESSION: No sonographic evidence of deep vein thrombosis in the right upper extremity.
[2016-11-26 16:56] LABS: % EOS 2 % (0-5)
[2016-11-26 16:57] LABS: ANISOCYTOSIS SLIGHT; PLT ESTIMATE ADEQUATE (ADEQUATE)
--- NOTE | 2016-11-26 17:52 | PHYS DOC ---
Past Medical History Past Medical History: A-Fib, Anxiety, Arthritis, CHF, COPD, Hypertension, MRSA , UTI, Other Additional Past Medical Histor: BREAT CA, UTI, SCOLOSIS, DVT, 02 AT HOME Past Surgical History: Pacemaker, Other Additional Past Surgical Histo: R LUMPECTOMY Alcohol Use: None Drug Use: None Adult General Chief Complaint Chief Complaint: LOWER EXTREMITY EDEMA [facility] HPI Patient is a 86 year old female who presents with family for returning swelling to bilateral legs, right hand, and increased difficulty breathing from baseline. She has been using home oxygen and taking meds as prescribed. Denies n/v, f/c, hand pain or discoloration or injury. She was recently discharged for CHF with pleural effusion with thoracentesis. Family states she initially improved, but condition is worsening. Review of Systems Review of Systems Constitutional: Denies fever or chills [] Eyes: Denies change in visual acuity, redness, or eye pain [] HENT: Denies nasal congestion or sore throat [] Respiratory: Denies cough [] Cardiovascular: No additional information not addressed in HPI [] GI: Denies abdominal pain, nausea, vomiting, bloody stools or diarrhea [] : Denies dysuria or hematuria [] Musculoskeletal: Denies back pain or joint pain [] Integument: Denies rash or skin lesions [] Neurologic: Denies headache, focal weakness or sensory changes [] Endocrine: Denies polyuria or polydipsia [] Allergies Allergies Allergies Coded Allergies Type Severity Reaction Last Updated Verified adhesive Allergy Intermediate 04/04/15 Yes I S O L A T I O N *CONTACT* Allergy Unknown 11/04/16 Yes Physical Exam Physical Exam Constitutional: Well developed, well nourished, no acute distress, non-toxic appearance. [] HENT: Normocephalic, atraumatic, bilateral external ears normal, oropharynx moist, nose normal. [] Eyes: PERRLA, EOMI. [] Neck: Normal range of motion, supple, no stridor. [] Cardiovascular:Heart rate regular rhythm [] Lungs & Thorax: Bilateral breath sounds clear to auscultation; diminished in right lower chest [] Abdomen: Bowel sounds normal, soft, no tenderness. [] Skin: Warm, dry, no erythema, no rash. [] Back: No tenderness, no CVA tenderness. [] Extremities: No tenderness, ROM intact, bilateral 2+ LE edema. Right hand with pitting edema without discoloration/induration/warmth/crepitance/fluctuance, RUE radial pulse 1+, warm with brisk cap refill [] Neurologic: Alert and oriented X 3, normal motor function, normal sensory function, no focal deficits noted. [] Psychologic: Affect normal, judgement normal, mood normal. [] Current Patient Data Vital Signs Vital Signs Date Time Temp Pulse Resp B/P Pulse Ox O2 Delivery O2 Flow Rate FiO2 11/26/16 17:00 92 22 94/66 94 4 11/26/16 15:19 97.6 Nasal Cannula 97.6 Lab Values Laboratory Tests Test 11/26/16 15:50 White Blood Count 6.8x10^3/uL (4.0-11.0) Red Blood Count 4.50x10^6/uL (3.50-5.40) Hemoglobin 13.0g/dL (12.0-15.5) Hematocrit 40.5% (36.0-47.0) Mean Corpuscular Volume 90fL (79-100) Mean Corpuscular Hemoglobin 29pg (25-35) Mean Corpuscular Hemoglobin Concent 32g/dL (31-37) Red Cell Distribution Width 18.0% (11.5-14.5) H Platelet Count 159x10^3/uL (140-400) Neutrophils (%) (Auto) 59% (31-73) Lymphocytes (%) (Auto) 18% (24-48) L Monocytes (%) (Auto) 20% (0-9) H Eosinophils (%) (Auto) 1% (0-3) Basophils (%) (Auto) 1% (0-3) Neutrophils # (Auto) 4.0x10^3uL (1.8-7.7) Lymphocytes # (Auto) 1.2x10^3/uL (1.0-4.8) Monocytes # (Auto) 1.4x10^3/uL (0.0-1.1) H Eosinophils # (Auto) 0.1x10^3/uL (0.0-0.7) Basophils # (Auto) 0.1x10^3/uL (0.0-0.2) Segmented Neutrophils % 48% (35-66) Band Neutrophils % 2% (0-9) Lymphocytes % 20% (24-48) L Monocytes % 28% (0-10) H Eosinophils % 2% (0-5) Platelet Estimate Adequate (ADEQUATE) Anisocytosis Slight Sodium Level 141mmol/L (136-145) Potassium Level 4.5mmol/L (3.5-5.1) Chloride Level 101mmol/L (98-107) Carbon Dioxide Level 37mmol/L (21-32) H Anion Gap 3 (6-14) L Blood Urea Nitrogen 19mg/dL (7-20) Creatinine 1.1mg/dL (0.6-1.0) H Estimated GFR (Cockcroft-Gault) 46.9 Glucose Level 112mg/dL (70-99) H Calcium Level 9.2mg/dL (8.5-10.1) Troponin I Quantitative < 0.017ng/mL (0.000-0.055) PP-Liz-A-Type Natriuretic Peptide 2755pg/mL (0-449) H Laboratory Tests 11/26/16 15:50 Laboratory Tests 11/26/16 15:50 EKG EKG EKG as interpreted by me as atrial fibrillation, rate 91, PVCs, no ST-T changes Radiology/Procedures Radiology/Procedures Chest x-ray as interpreted by me as worsening pleural effusion bilaterally, right greater than left Course & Med Decision Making Course & Med Decision Making Pertinent Labs and Imaging studies reviewed. (See chart for details) US RUE neg for DVT, but has some evidence of PVD; she however does not have symptoms of claudication. Laboratory evaluation is unremarkable, however she continues have whole-body fluid accumulation on exam and XR. Discussed case with Dr. Ray, who agrees with admission. Consult placed to pulmonology. Dragon Disclaimer Dragon Disclaimer This electronic medical record was generated, in whole or in part, using a voice recognition dictation system. Departure Departure Impression: Primary Impression: Pleural effusion Additional Impression: CHF exacerbation Disposition: 09 ADMITTED INPATIENT Condition: STABLE Referrals: SANTIAGO RAY MD (PCP) Problem Qualifiers Additional Impression: CHF exacerbation Congestive heart failure type: unspecified congestive heart failure type Qualified Code: I50.9 - Heart failure, unspecified Benedict LOZANO MD Nov 26, 2016 17:52
[2016-11-26] MEDS ORDERED: ONDANSETRON PF 4 MG/2 ML VIAL. IV PRN (18:00)
[2016-11-26] MEDS ORDERED: ACETAMINOPHEN 325 MG TABLET. PO PRN (18:00)
[2016-11-26] MEDS ORDERED: FENTANYL PF 100 MCG/2 ML VIAL. IV PRN (18:00)
[2016-11-26 19:07] VITALS: BP 95/66
[2016-11-26 20:59] VITALS: BP 100/74
[2016-11-26] MEDS: LATANOPROST 0.005% OPHTH SOLUTION 2.5ML BOTTLE. OU SCH (21:00)
[2016-11-26 23:33] VITALS: BP 106/74
--- NOTE | 2016-11-27 01:21 | HP ---
ADMIT DATE: 11/26/2016 HISTORY OF PRESENT ILLNESS: This is an 86-year-old white female who was brought into the Emergency Room by her son and I saw her in the Emergency Room. She had just been hospitalized on 11/19/2016 with increasing shortness of breath. She was noted to have a pleural effusion. She underwent a thoracentesis on 11/20/2016. 1100 mL of pale yellow colored fluid was removed. The cell count was unremarkable. The protein was low at 1.9 grams percent with the serum protein being more than 5 grams percent. The LDH was low and far less than 50% of the serum LDH. It is clearly a transudate. The patient did feel better thereafter. She was observed for a day. She was [facility], which she refused. She was discharged on 11/23/2016. She went home. The son says that she started to get short of breath on ____, she started to get short of breath even at rest on the . He did not call me until the afternoon. At that time, he stated that her legs were not that much swollen, but the knees were swollen. He was also very concerned about the right arm being swollen. Because I was not sure whether there was a cellulitis of the right arm that caused all the swelling, I asked him to take her to the Emergency Room. I did see her in the Emergency Room. In the Emergency Room, she was quite tachypneic. She has been tachypneic all along and I am not quite sure whether it is true shortness of breath or whether it is mannerism. She said she was short of breath. She was able to lie flat. Chest x-ray showed increasing right pleural effusion and thus she was hospitalized. This patient has had recurrent congestive heart failure. Her hospitalizations are getting closer together. She had had her last thoracentesis in 08/2015. The next one was in 09/2016 and the next end of 10/2016, and next was on 11/20/2016, and now she needs 1 on 11/27/2016. I had discussed this with Dr. Mclean before. He said that you could either keep doing repeated thoracentesis or do pleurodesis. It would have to be done when she gets a thoracentesis and he could put a chest tube in. This could not be done on a Tuesday. That being the case, I will plan to simply do a thoracentesis on Tuesday as I do not think we should wait till Tuesday, the . She has permanent atrial fibrillation. She had at one time cellulitis of the leg and in fact she had bacteremia with Streptococcus G. She also has severe presbyesophagus, but has had no recent dysphagia. She needs 3 liters of oxygen. MEDICATIONS: Her present medications: 1. Potassium chloride 20 mEq twice a day. 2. Aspirin 325 mg a day. 3. Lasix 80 mg twice a day with extra Lasix as needed. 4. Albuterol via nebulizer 4 times a day. 5. Magnesium oxide 400 mg a day. 6. Calcium with vitamin D. 7. Metoprolol succinate 25 mg a day. 8. Eyedrops. 9. Percocet quarter tablet q. 6 hours p.r.n. PHYSICAL EXAMINATION: GENERAL: She was lying flat. She was tachypneic with using the muscles in the neck and shoulder. VITAL SIGNS: The heart rate was 90 per minute and irregular. The blood pressure is 110/70. LUNGS: Showed decreased breath sounds on the right side and rhonchi on the left side. HEART: The heart sounds are normal. There is a grade 2/6 systolic murmur at the apex. ABDOMEN: Soft. EXTREMITIES: The legs are 2+ swollen, which is totally different from when she left the hospital. LABORATORY DATA: A chest x-ray shows increasing effusion on the right side. There is also increased pulmonary vascular congestion. Her last echocardiogram that I have in the chart is from 03/2015. She probably has had a more recent echo, but I do not have the report. At that time, the systolic function was normal. There was a grade 3 diastolic dysfunction. There was moderate mitral regurgitation. There was nrmo-bj-tjgowufp aortic regurgitation and mild to moderate aortic stenosis. The inferior vena cava was at the upper limits of normal with minimal inspiratory collapse. There is moderate tricuspid regurgitation. Thus, she has enough reasons to have both the right and left heart failure. This is mainly due to diastolic dysfunction and severe valvular dysfunction that cannot be repaired. The tricuspid regurgitation and the pulmonary hypertension are causing her to have swelling of the legs. IMPRESSION: 1. Acute on chronic systolic and diastolic congestive heart failure. 2. Moderate aortic stenosis, aortic regurgitation and mitral regurgitation and tricuspid regurgitation. 3. Pulmonary hypertension. 4. Permanent atrial fibrillation. 5. Chronic kidney disease. 6. Recurrent right pleural effusion occurring with increasing frequency and rapid reaccumulation. SANTIAGO RAY MD DR: MICKI/jacques JOB#: [id number] / [id number]
[2016-11-27 03:46] VITALS: BP 113/67
[2016-11-27 07:00] VITALS: BP 111/64
[2016-11-27] MEDS: DORZOLAMIDE 2% OPHTH SOLUTION 10ML BOTTLE. OU SCH (07:36)
[2016-11-27] MEDS: ALBUTEROL SULFATE 2.5 MG/3 ML NEBU. NEB SCH ×4 (08:00→20:14)
[2016-11-27] MEDS: ASPIRIN ENTERIC COATED 325 MG TABLET.DR. PO SCH (08:00)
[2016-11-27] MEDS: FUROSEMIDE 80 MG TABLET PO SCH ×2 (09:00→17:12)
--- NOTE | 2016-11-27 09:00 | PDOC ---
Provider Note Provider Note [id number] acute on chronic resp fail recurrent pleural effusion 2/2 to acute diastolic chf re; pleurex pleural catheter. FITZ CALIX MD Nov 27, 2016 09:00
--- NOTE | 2016-11-27 09:44 | CONS ---
DATE OF CONSULTATION: 11/27/2016 I was asked to see this 86-year-old lady for acute on chronic respiratory failure. HISTORY OF PRESENT ILLNESS: She is a less known nonsmoker. She has had exposure to secondhand smoking. She was admitted to [facility] last week and underwent thoracentesis on 11/20/2016, 1100 mL of fluid was evacuated which was consistent with transudate. She also had thoracentesis on 11/03/2016. Her son is at bedside. She feels deficient, feels tired. She has shortness of breath. She was admitted for increased shortness of breath. She has cough. She has pain all over. PAST MEDICAL HISTORY: CHF, history of breast cancer, atrial fibrillation, anxiety, asthma and hypertension. SOCIAL HISTORY: Nonsmoker. FAMILY HISTORY: Positive for hypertension. ALLERGIES: ADHESIVE. MEDICATIONS: She is currently on Toprol-XL, magnesium oxide, Lasix, ferrous sulfate, aspirin, and albuterol q.i.d. REVIEW OF SYSTEMS: As mentioned above, other systems otherwise negative. PHYSICAL EXAMINATION: GENERAL: This is an overweight lady. VITAL SIGNS: Her O2 saturation is 97% on 4 liters of oxygen, respiratory rate 20, heart rate 81, blood pressure 111/64, temperature 97.8. HEENT: Normocephalic, atraumatic. Pupils equal, round, reactive to light. Throat is clear. Nose is clear. NECK: Positive JVD. No lymphadenopathy. CARDIOVASCULAR: Irregularly irregular rate and rhythm. PMI is nondisplaced. CHEST: Inspection is normal. LUNGS: There are bibasilar crackles, a few end-expiratory wheezing, dullness on the right side up to half a lung field. ABDOMEN: Soft. Bowel sounds are good. There is no mass. EXTREMITIES: There is edema. LYMPHATICS: There is no lymphadenopathy. SKIN: Chronic changes. NEUROLOGIC: Alert and oriented x 3. LABORATORY DATA: I reviewed the following lab data: Chest x-ray shows cardiomegaly, increase in bilateral pleural effusion, right more than left. Upper extremity ultrasound is negative for DVT. WBC 6.8, hemoglobin 13, platelets 159. Sodium 141, potassium 4.5, chloride 101, CO2 of 37, BUN 19, creatinine 1.1. Troponin less than 0.01. BNP is 2755. IMPRESSION: 1. Acute on chronic respiratory failure, multifactorial in etiology. 2. Abnormal chest x-ray. 3. Pleural effusion, right more than left. Transudate secondary to acute on chronic diastolic congestive heart failure. 4. Wheezing, asthma, ? chronic obstructive pulmonary disease. 5. Atrial fibrillation. 6. History of breast cancer. 7. Hypertension. PLAN AND RECOMMENDATIONS: 1. Titrate FiO2 to keep O2 saturation 92%. 2. Continue Lasix, keep intake less than output. 3. She has had recurrent pleural effusion which is transudate secondary to her heart failure. I do recommend PleurX pleural catheter placement. I did discuss it with her son, they are agreeable. 4. Bronchodilator. 5. Protonix for stress ulcer prophylaxis. 6. Start DVT prophylaxis. 7. The findings and recommendations were discussed with the patient and her son, they understood and agreed to proceed with the plan. Thank you very much for allowing me to participate in care of this very nice lady. I will discuss the finding and recommendations with the primary physician. FITZ CALIX M.D. : Bertin JOB#: [id number] / [id number] DAV
[2016-11-27 11:00] VITALS: BP 115/80
[2016-11-27 15:00] VITALS: BP 107/75
[2016-11-27] MEDS: CALCIUM CARBONATE 500 MG TAB.CHEW PO SCH (17:12)
[2016-11-27] MEDS: MULTIVITAMIN EYE FORMULA CAPSULE. PO SCH (17:12)
[2016-11-27] MEDS: MAGNESIUM OXIDE 400 MG TABLET PO SCH (17:12)
[2016-11-27] MEDS: FERROUS SULFATE 325 MG TABLET PO SCH (17:12)
[2016-11-27] MEDS: METOPROLOL SUCC 24HR ER 25 MG TAB.ER.24H. PO SCH (17:13)
[2016-11-27 19:59] VITALS: BP 96/71
[2016-11-27] MEDS: LATANOPROST 0.005% OPHTH SOLUTION 2.5ML BOTTLE. OU SCH (20:32)
--- NOTE | 2016-11-27 21:54 | PDOC ---
Provider Note Provider Note A thoracentesis had been ordered for today. Apparently there was some confusion and miscommunication. It was not done. Patient continues to be very short of breath. Contacted interventional radiologist and informed him that I really need the thoracentesis this weekend. He agreed and it'll be done tomorrow under sonographic guidance. SANTIAGO RAY MD Nov 27, 2016 21:54
[2016-11-27 23:59] VITALS: BP 111/66
[2016-11-28 03:59] VITALS: BP 112/81
[2016-11-28 07:00] VITALS: BP 113/82
[2016-11-28] MEDS: ALBUTEROL SULFATE 2.5 MG/3 ML NEBU. NEB SCH ×4 (08:00→20:00)
[2016-11-28] MEDS: ASPIRIN ENTERIC COATED 325 MG TABLET.DR. PO SCH (08:00)
[2016-11-28] MEDS: FERROUS SULFATE 325 MG TABLET PO SCH (08:00)
[2016-11-28] MEDS: MAGNESIUM OXIDE 400 MG TABLET PO SCH (08:35)
[2016-11-28] MEDS: FUROSEMIDE 80 MG TABLET PO SCH ×2 (08:35→14:37)
[2016-11-28] MEDS: METOPROLOL SUCC 24HR ER 25 MG TAB.ER.24H. PO SCH (08:36)
[2016-11-28] MEDS: CALCIUM CARBONATE 500 MG TAB.CHEW PO SCH (08:36)
[2016-11-28] MEDS: MULTIVITAMIN EYE FORMULA CAPSULE. PO SCH (08:36)
[2016-11-28] MEDS: DORZOLAMIDE 2% OPHTH SOLUTION 10ML BOTTLE. OU SCH (09:00)
[2016-11-28 09:55] LABS: CALCIUM 9.1 mg/dL (8.5-10.1); CREATININE 0.9 mg/dL (0.6-1.0); GFR 59.1
[2016-11-28 10:54] LABS: INR 1.4 (0.8-1.1); PROTHROMBIN TIME PATIENT 16.7 SEC (11.7-14.0)
[2016-11-28 11:00] VITALS: BP 116/86
--- NOTE | 2016-11-28 12:03 | PDOC ---
PULMONARY PROGRESS NOTES Subjective has sob, cough, wheezing, didnt have thoracentesis yesterday, son is very upset about it, no pain Vitals Vital Signs Date Time Temp Pulse Resp B/P Pulse Ox O2 Delivery O2 Flow Rate FiO2 11/28/16 11:40 Nasal Cannula 3.0 11/28/16 11:00 97.5 112 24 116/86 95 97.5 Comments ros as mentioned as above other sys otherwise neg ROS: No Nausea, No Chest Pain, No Abdominal Pain General: Alert HEENT: Other (nc at perrl) Lungs: Wheezing, Crackles, Other (r dull at base) Cardiovascular: S1, S2 Abdomen: Soft, Non-tender Neuro Exam: Alert, Oriented Extremities: No Edema Skin: Warm Labs Laboratory Tests Test 11/26/16 15:50 11/27/16 07:14 11/27/16 11:34 11/28/16 09:15 White Blood Count 6.8x10^3/uL (4.0-11.0) Red Blood Count 4.50x10^6/uL (3.50-5.40) Hemoglobin 13.0g/dL (12.0-15.5) Hematocrit 40.5% (36.0-47.0) Mean Corpuscular Volume 90fL (79-100) Mean Corpuscular Hemoglobin 29pg (25-35) Mean Corpuscular Hemoglobin Concent 32g/dL (31-37) Red Cell Distribution Width 18.0% (11.5-14.5) Platelet Count 159x10^3/uL (140-400) Neutrophils (%) (Auto) 59% (31-73) Lymphocytes (%) (Auto) 18% (24-48) Monocytes (%) (Auto) 20% (0-9) Eosinophils (%) (Auto) 1% (0-3) Basophils (%) (Auto) 1% (0-3) Neutrophils # (Auto) 4.0x10^3uL (1.8-7.7) Lymphocytes # (Auto) 1.2x10^3/uL (1.0-4.8) Monocytes # (Auto) 1.4x10^3/uL (0.0-1.1) Eosinophils # (Auto) 0.1x10^3/uL (0.0-0.7) Basophils # (Auto) 0.1x10^3/uL (0.0-0.2) Segmented Neutrophils % 48% (35-66) Band Neutrophils % 2% (0-9) Lymphocytes % 20% (24-48) Monocytes % 28% (0-10) Eosinophils % 2% (0-5) Platelet Estimate Adequate (ADEQUATE) Anisocytosis Slight Sodium Level 141mmol/L (136-145) 145mmol/L (136-145) Potassium Level 4.5mmol/L (3.5-5.1) 4.0mmol/L (3.5-5.1) Chloride Level 101mmol/L (98-107) 105mmol/L (98-107) Carbon Dioxide Level 37mmol/L (21-32) 33mmol/L (21-32) Anion Gap 3 (6-14) 7 (6-14) Blood Urea Nitrogen 19mg/dL (7-20) 20mg/dL (7-20) Creatinine 1.1mg/dL (0.6-1.0) 0.9mg/dL (0.6-1.0) Estimated GFR (Cockcroft-Gault) 46.9 59.1 Glucose Level 112mg/dL (70-99) 134mg/dL (70-99) Calcium Level 9.2mg/dL (8.5-10.1) 9.1mg/dL (8.5-10.1) Troponin I Quantitative < 0.017ng/mL (0.000-0.055) QA-Bkn-Y-Type Natriuretic Peptide 2755pg/mL (0-449) Glucose (Fingerstick) 89mg/dL (70-99) 98mg/dL (70-99) Test 11/28/16 10:30 Prothrombin Time 16.7SEC (11.7-14.0) Prothromb Time International Ratio 1.4 (0.8-1.1) Laboratory Tests Test 11/28/16 09:15 11/28/16 10:30 Sodium Level 145mmol/L (136-145) Potassium Level 4.0mmol/L (3.5-5.1) Chloride Level 105mmol/L (98-107) Carbon Dioxide Level 33mmol/L (21-32) Anion Gap 7 (6-14) Blood Urea Nitrogen 20mg/dL (7-20) Creatinine 0.9mg/dL (0.6-1.0) Estimated GFR (Cockcroft-Gault) 59.1 Glucose Level 134mg/dL (70-99) Calcium Level 9.1mg/dL (8.5-10.1) Prothrombin Time 16.7SEC (11.7-14.0) Prothromb Time International Ratio 1.4 (0.8-1.1) Medications Active Scripts Medications Dose Route/Sig Days Date Category Calcium 600 + Vit D 200 Tablet (Calcium Carbonate/Vitamin D3) 1 Each Tablet 1 Each PO DAILY 11/02/16 Reported Azopt (Brinzolamide) 10 Ml Drops.susp 1 Drop EACHEYE DAILY 11/02/16 Reported Lutein-Zeaxanthin 25-5 Mg Sfgl (Lutein/Zeaxanthin) 1 Each Capsule 1 Each PO DAILY 11/02/16 Reported Lasix (Furosemide) 80 Mg Tablet 1 Tab PO BID 11/02/16 Reported Aspirin 325 Mg Tablet 1 Tab PO DAILY 07/19/16 Reported Percocet 5-325 Mg Tablet (Oxycodone/Acetaminophen) 1 Each Tablet 0.5 Tab PO Q8HRS PRN 07/19/16 Reported Toprol Xl (Metoprolol Succinate) 25 Mg Tab.er.24h 1.5 Tab PO DAILY 07/19/16 Reported Magnesium Oxide 400 Mg Tablet 500 Mg PO DAILY 07/19/16 Reported Albuterol Sulfate Neb Soln (Albuterol Sulfate) 2.5 Mg/3 Ml Vial.neb 1 Vial NEB QID 11/30/15 Reported Feosol (Ferrous Sulfate) 325 Mg Tablet 325 Mg PO DAILY 08/30/15 Rx Cetirizine Hcl 10 Mg Tablet 1 Tab PO DAILY 03/13/15 Reported Tums (Calcium Carbonate) 200 Mg Tab.chew 200 Mg PO PRN Q2HRS PRN 12/27/14 Reported Travatan Z (Travoprost) 5 Ml Drops 1 Drop EACHEYE QHS 08/12/14 Reported Comments cxr reviewed, Impression . IMPRESSION: 1. Acute on chronic respiratory failure, multifactorial in etiology. 2. Abnormal chest x-ray. 3. Pleural effusion, right more than left. Transudate secondary to acute on chronic diastolic congestive heart failure. 4. Wheezing, asthma, ? chronic obstructive pulmonary disease. 5. Atrial fibrillation. 6. History of breast cancer. 7. Hypertension. Plan . PLAN AND RECOMMENDATIONS: 1. Titrate FiO2 to keep O2 saturation 92%. 2. Continue Lasix, keep intake less than output. 3. She has had recurrent pleural effusion which is transudate secondary to her heart failure. agree w thoracentesis. I also recommend Pleurex pleural catheter placement. I did discuss it with her son, they are agreeable. 4. Bronchodilator. 5. Protonix for stress ulcer prophylaxis. 6. DVT prophylaxis. 7. add ics The findings and recommendations were discussed with the patient and her son, they understood and agreed to proceed with the plan. discussed w rn, FITZ CALIX MD Nov 28, 2016 12:03
[2016-11-28] MEDS: BUDESONIDE 0.5 MG/2 ML NEBU. NEB SCH ×2 (12:15→20:00)
--- NOTE | 2016-11-28 13:58 | RAD ---
Indication: Difficulty breathing. Thoracentesis was requested. Preliminary ultrasound images were obtained and confirm a moderately large right pleural effusion. House Fellow images were saved Thoracentesis was discussed with the patient. The risks of infection and bleeding were outlined. The possibility of pneumothorax was also discussed. The patient understood the risks associated with the procedure and wished to proceed. With the patient in an upright position an appropriate level for entry into the pleural cavity was identified. The skin was prepped and draped in the routine fashion. Local anesthesia was accomplished with 1% lidocaine. A thoracentesis catheter was introduced into the pleural cavity. Dark straw-colored fluid was encountered. 1300 cc of fluid were removed. The patient appeared to tolerate the procedure unremarkably. A post procedure chest x-ray will be obtained and will be the subject of a separate dictation. IMPRESSION: Successful thoracentesis with removal of approximately 1300 cc of dark straw-colored right pleural fluid.
[2016-11-28 15:00] VITALS: BP 126/80
--- NOTE | 2016-11-28 15:32 | PDOC ---
Provider Note Provider Note She was very short of breath this morning. She had thoracentesis by the radiologist today. Thousand 300 mL was removed. No analysis was carried out this time because it was just done on the . We will see her tomorrow and decide what the next course would be She could be discharged tomorrow. SANTIAGO RAY MD Nov 28, 2016 15:32
[2016-11-28 19:00] VITALS: BP 121/83
[2016-11-28] MEDS: LATANOPROST 0.005% OPHTH SOLUTION 2.5ML BOTTLE. OU SCH (20:20)
[2016-11-28 23:00] VITALS: BP 100/57
[2016-11-29 03:00] VITALS: BP 136/75
[2016-11-29] MEDS: ALBUTEROL SULFATE 2.5 MG/3 ML NEBU. NEB SCH ×4 (06:55→19:59)
[2016-11-29] MEDS: BUDESONIDE 0.5 MG/2 ML NEBU. NEB SCH ×2 (06:56→19:59)
[2016-11-29 07:00] VITALS: BP 113/84
[2016-11-29] MEDS: ASPIRIN ENTERIC COATED 325 MG TABLET.DR. PO SCH (08:36)
[2016-11-29] MEDS: FERROUS SULFATE 325 MG TABLET PO SCH (08:36)
[2016-11-29] MEDS: FUROSEMIDE 80 MG TABLET PO SCH ×2 (08:36→15:07)
[2016-11-29] MEDS: CALCIUM CARBONATE 500 MG TAB.CHEW PO SCH (08:36)
[2016-11-29] MEDS: MAGNESIUM OXIDE 400 MG TABLET PO SCH (08:36)
[2016-11-29] MEDS: METOPROLOL SUCC 24HR ER 25 MG TAB.ER.24H. PO SCH (08:37)
[2016-11-29] MEDS: MULTIVITAMIN EYE FORMULA CAPSULE. PO SCH (08:37)
[2016-11-29] MEDS: DORZOLAMIDE 2% OPHTH SOLUTION 10ML BOTTLE. OU SCH (08:37)
[2016-11-29 11:00] VITALS: BP 110/84
--- NOTE | 2016-11-29 13:29 | PDOC ---
PULMONARY PROGRESS NOTES Subjective feels better after thoracentesis Vitals Vital Signs Date Time Temp Pulse Resp B/P Pulse Ox O2 Delivery O2 Flow Rate FiO2 11/29/16 11:00 98.2 112 20 110/84 94 Nasal Cannula 4.0 98.2 Comments ros as mentioned as above other sys otherwise neg ROS: No Nausea, No Chest Pain, No Abdominal Pain General: Alert HEENT: Other (nc at perrl) Lungs: Other (bs right) Cardiovascular: S1, S2 Abdomen: Soft, Non-tender Neuro Exam: Alert, Oriented Extremities: No Edema Skin: Warm Labs Laboratory Tests Test 11/28/16 09:15 11/28/16 10:30 Sodium Level 145mmol/L (136-145) Potassium Level 4.0mmol/L (3.5-5.1) Chloride Level 105mmol/L (98-107) Carbon Dioxide Level 33mmol/L (21-32) Anion Gap 7 (6-14) Blood Urea Nitrogen 20mg/dL (7-20) Creatinine 0.9mg/dL (0.6-1.0) Estimated GFR (Cockcroft-Gault) 59.1 Glucose Level 134mg/dL (70-99) Calcium Level 9.1mg/dL (8.5-10.1) Prothrombin Time 16.7SEC (11.7-14.0) Prothromb Time International Ratio 1.4 (0.8-1.1) Medications Active Scripts Medications Dose Route/Sig Days Date Category Calcium 600 + Vit D 200 Tablet (Calcium Carbonate/Vitamin D3) 1 Each Tablet 1 Each PO DAILY 11/02/16 Reported Azopt (Brinzolamide) 10 Ml Drops.susp 1 Drop EACHEYE DAILY 11/02/16 Reported Lutein-Zeaxanthin 25-5 Mg Sfgl (Lutein/Zeaxanthin) 1 Each Capsule 1 Each PO DAILY 11/02/16 Reported Lasix (Furosemide) 80 Mg Tablet 1 Tab PO BID 11/02/16 Reported Aspirin 325 Mg Tablet 1 Tab PO DAILY 07/19/16 Reported Percocet 5-325 Mg Tablet (Oxycodone/Acetaminophen) 1 Each Tablet 0.5 Tab PO Q8HRS PRN 07/19/16 Reported Toprol Xl (Metoprolol Succinate) 25 Mg Tab.er.24h 1.5 Tab PO DAILY 11/14/16 Reported Magnesium Oxide 400 Mg Tablet 500 Mg PO DAILY 07/19/16 Reported Albuterol Sulfate Neb Soln (Albuterol Sulfate) 2.5 Mg/3 Ml Vial.neb 1 Vial NEB QID 11/30/15 Reported Feosol (Ferrous Sulfate) 325 Mg Tablet 325 Mg PO DAILY 08/30/15 Rx Cetirizine Hcl 10 Mg Tablet 1 Tab PO DAILY 03/13/15 Reported Tums (Calcium Carbonate) 200 Mg Tab.chew 200 Mg PO PRN Q2HRS PRN 12/27/14 Reported Travatan Z (Travoprost) 5 Ml Drops 1 Drop EACHEYE QHS 08/12/14 Reported Comments cxr reviewed, Impression . 1. Acute on chronic respiratory failure, multifactorial in etiology. 2. Abnormal chest x-ray with recurrent right effusion 3. Pleural effusion, right more than left. Transudate secondary to acute on chronic diastolic congestive heart failure. s/p thoracentesis 4. Wheezing, resolved 5. Atrial fibrillation. 6. History of breast cancer. 7. Hypertension. Plan . 1. s/p right thoracentesis. This is th e3rd since this month. d/w Son the option of PleurX catheter for curriculum manager drainage. He is agreeable. CXR today and if there is fluid reaccumulation, proceed with PleurX catheter 2. Continue Lasix, keep intake less than output. 3. d/w Dr Castaneda 4. Bronchodilator. 5. Protonix for stress ulcer prophylaxis. 6. DVT prophylaxis. 7. ics VADIM CAMARA MD Nov 29, 2016 13:29
[2016-11-29 14:45] VITALS: BP 103/71
--- NOTE | 2016-11-29 15:21 | RAD ---
Portable chest, 11/29/2016: History: Shortness of breath, effusion Comparison is made to a study from 11/26/2016. A left-sided transvenous pacemaker remains in place extending into the inferior aspect of the right ventricle. The heart is moderately enlarged. The pulmonary vascularity appears to be within normal limits. There is a moderate amount of right-sided pleural fluid. It appears to have decreased slightly status post interval thoracentesis. There is moderate underlying right basilar atelectasis/infiltrate. There is a moderate volume of left-sided pleural fluid which has increased since the previous study. There is no evidence of pneumothorax. IMPRESSION: 1. Unchanged cardiomegaly. 2. Moderate sized residual or recurrent right pleural effusion with moderate underlying atelectasis/infiltrate. 2. Increasing moderate-sized left pleural effusion.
[2016-11-29] MEDS: OXYCODONE/APAP 5/325 TABLET. PO PRN (16:09)
[2016-11-29 19:00] VITALS: BP 110/76
--- NOTE | 2016-11-29 19:18 | PDOC ---
Provider Note Provider Note She feels better today after the thoracentesis yesterday. Lungs show better air entry in the right lung. Discussed with Dr. Toscano. The catheter that he suggests is a good option. We will the patient in the hospital until that catheter is able to be placed. He gets very short of breath on walking a few feet and desaturates to 88% on 4 L /m of oxygen. She is on maximum medical treatment for the CHF. SANTIAGO RAY MD Nov 29, 2016 19:18
[2016-11-29] MEDS: LATANOPROST 0.005% OPHTH SOLUTION 2.5ML BOTTLE. OU SCH (22:13)
[2016-11-29 23:00] VITALS: BP 105/50
[2016-11-30] VITALS (14 sets, daily range): BP systolic 86–113; BP diastolic 49–82
--- NOTE | 2016-11-30 05:08 | ACF ---
Admission Forms Criteria HEART FAILURE Clinical Indications for Admission to Inpatient Care (Place 'X' for any and all applicable criteria): Admission is indicated by ANY ONE of the following(1)(2)(3)(4): [ ]I. Severe electrolyte abnormalities requiring inpatient care(9) [ ]II. Hemodynamic instability [ ]III. Anasarca [ ]IV. Acute cardiac ischemia causing or associated with failure (Also use Angina or Myocardial Infarction as appropriate) [ ]V. Cardiac arrhythmias of immediate concern [X]. Precipitating cause for acute decompensation (eg, pneumonia, pulmonary embolism) requires inpatient care [ ]VII. Pulmonary edema that is very severe (eg, mechanical ventilation needed, imminent or likely, need for 100% oxygen to keep oxygen saturation above 90%) [ ]VIII. Inpatient admission required rather than observation care (Also use Heart Failure: Observation Care as appropriate) because of ANY ONE of the following: [ ]a) Pulmonary edema that is severe or worsening as indicated by ALL of the following: [ ]i) New need for oxygen therapy to keep oxygen saturation above 90% (or increased FiO2 need from baseline) [ ]ii) Has not improved sufficiently with emergency department or observation care IV diuretics or other heart failure treatments[C] [ ]b) Cognitive impairment that is severe or persistent [ ]c) Increased creatinine (new on laboratory test) with reduction of more than 50% in estimated glomerular filtration rate from baseline. [ ]d) Acute renal insufficiency (progressively (ongoing) rising creatinine (known from past laboratory test) with reduction of more than 25% in estimated glomerular filtration rate from baseline) [ ]e) Acute peripheral ischemia (eg, pulseless, cool, mottled, or cyanotic extremity) [ ]f) Acute renal failure [ ]g) Supplemental O2 or respiratory treatment for >24 hr that are performable only in acute inpatient setting [ ]h) Pulmonary artery catheter monitoring [ ]i) Other condition, treatment or monitoring requiring inpatient admission [ ]IX. Contraindications and/or Inappropriate clinical situations for Observational Care in patients with Heart Failure, when ANY ONE of the following is required: [ ]a) Patient with High risk of cardiac embolism (e.g, patients with previous cardiac embolism, LVEF < 40%, age >75 and patients with prosthetic valve) 18 [ ]b) Patient with Moderate risk including DM patient, CAD and patient aged 65-75 [ ]c) Patient with any change in cardiac biomarker especially troponin should be managed as high risk in an inpatient setting 19 [ ]d) Physician judgement irrespective of ECG and other diagnostic findings 20 [ ]e) Patients with hyponatremia have high risk for mortality and require more extensive care and length of stay 21 [ ]f) Need for large volume diuresis 21 [ ]g) Presence of renal insufficiency or hypotension limiting speed of diuresis 21 [ ]h) Acute cardiac Ischemia in the elderly 21 [ ]i) Patients with a 30 day risk of mortality based on a multidimensional prognostic index (MPI) [J,]21 [ ]X. General contraindications and/or Inappropriate clinical situations for Observational Care in patients with Heart Failure, when ANY ONE of the following is required: [ ]a) Prediction of prolongation of LOS based on ANY ONE of the following may be considered as a contraindication for observational care 2, 3, 4, 5, 6, 7, 8 , 9, 10, 11 [ ]i) Age > 65 yrs. [ ]ii) Patient arriving by ambulance [ ]iii) Patient with high acuity [ ]iv) Patient requiring vital sign monitoring [ ]v) Patient on IV medication [ ]b) Systolic blood pressures 180mmHg 3,12 [ ]c) Patient with altered mental status including delirium and other alteration of consciousness, (3) [ ]d) Patient whose discharge disposition will be to a longterm home or rehabilitation home should not be managed in Emergency Department Observation Unit. CMS rule requires 3 days hospital stay before such placement.3,13 [ ]e) Patient with failure to thrive due to broad array of etiologies 3,16,17 [ ]f) Inability to ambulate 3,14 Extended stay beyond goal length of stay may be needed for(1)(3)(21)(25): [ ]a) Cardiac ischemia, confirmed or suspected as precipitant [ ]b) Cardiogenic shock or refractory pulmonary edema [ ]c) Acute kidney injury or renal failure [ ]d) Respiratory failure (eg, need for noninvasive or invasive mechanical ventilation) (23) [ ]e) Concomitant pneumonia or significant electrolyte abnormality (eg, severe hyponatremia) [ ]f) Newly diagnosed (new onset) atrial fibrillation [ ]g) Stage IV chronic kidney disease (estimated glomerular filtration rate of less than 30 mL/min/1.73m2 (0.50 mL/sec/1.73m2), and not previously on chronic dialysis The original [facility] content created by [facility] has been revised. The portions of the content which have been revised are identified through the use of italic text or in bold, and [facility] has neither reviewed nor approved the modified material. All other unmodified content is copyright [facility]. Please see references footnoted in the original [facility] edition 2016 Admission Criteria Met?: Yes ACE BRONSON Nov 30, 2016 05:08
[2016-11-30] MEDS: ALBUTEROL SULFATE 2.5 MG/3 ML NEBU. NEB SCH ×4 (07:10→19:41)
[2016-11-30] MEDS: BUDESONIDE 0.5 MG/2 ML NEBU. NEB SCH ×2 (07:11→19:41)
[2016-11-30] MEDS: FERROUS SULFATE 325 MG TABLET PO SCH (08:00)
[2016-11-30] MEDS: ASPIRIN ENTERIC COATED 325 MG TABLET.DR. PO SCH (08:00)
[2016-11-30] MEDS: METOPROLOL SUCC 24HR ER 25 MG TAB.ER.24H. PO SCH (08:12)
[2016-11-30] MEDS: MAGNESIUM OXIDE 400 MG TABLET PO SCH (09:00)
[2016-11-30] MEDS: CALCIUM CARBONATE 500 MG TAB.CHEW PO SCH (09:00)
[2016-11-30] MEDS: FUROSEMIDE 80 MG TABLET PO SCH ×2 (09:00→14:00)
[2016-11-30] MEDS: MULTIVITAMIN EYE FORMULA CAPSULE. PO SCH (09:00)
--- NOTE | 2016-11-30 09:00 | PDOC ---
PULMONARY PROGRESS NOTES Subjective not more soa Vitals Vital Signs Date Time Temp Pulse Resp B/P Pulse Ox O2 Delivery O2 Flow Rate FiO2 11/30/16 08:12 117 113/75 11/30/16 07:10 99 Nasal Cannula 4.0 11/30/16 07:00 97.9 22 97.9 Comments ros as mentioned as above other sys otherwise neg ROS: No Nausea, No Chest Pain, No Abdominal Pain General: Alert HEENT: Other (nc at perrl) Lungs: Other (bs right) Cardiovascular: S1, S2 Abdomen: Soft, Non-tender Neuro Exam: Alert, Oriented Extremities: No Edema Skin: Warm Labs Laboratory Tests Test 11/28/16 09:15 11/28/16 10:30 Sodium Level 145mmol/L (136-145) Potassium Level 4.0mmol/L (3.5-5.1) Chloride Level 105mmol/L (98-107) Carbon Dioxide Level 33mmol/L (21-32) Anion Gap 7 (6-14) Blood Urea Nitrogen 20mg/dL (7-20) Creatinine 0.9mg/dL (0.6-1.0) Estimated GFR (Cockcroft-Gault) 59.1 Glucose Level 134mg/dL (70-99) Calcium Level 9.1mg/dL (8.5-10.1) Prothrombin Time 16.7SEC (11.7-14.0) Prothromb Time International Ratio 1.4 (0.8-1.1) Medications Active Scripts Medications Dose Route/Sig Days Date Category Calcium 600 + Vit D 200 Tablet (Calcium Carbonate/Vitamin D3) 1 Each Tablet 1 Each PO DAILY 11/02/16 Reported Azopt (Brinzolamide) 10 Ml Drops.susp 1 Drop EACHEYE DAILY 11/02/16 Reported Lutein-Zeaxanthin 25-5 Mg Sfgl (Lutein/Zeaxanthin) 1 Each Capsule 1 Each PO DAILY 11/02/16 Reported Lasix (Furosemide) 80 Mg Tablet 1 Tab PO BID 11/02/16 Reported Aspirin 325 Mg Tablet 1 Tab PO DAILY 07/19/16 Reported Percocet 5-325 Mg Tablet (Oxycodone/Acetaminophen) 1 Each Tablet 0.5 Tab PO Q8HRS PRN 07/19/16 Reported Toprol Xl (Metoprolol Succinate) 25 Mg Tab.er.24h 1.5 Tab PO DAILY 07/19/16 Reported Magnesium Oxide 400 Mg Tablet 500 Mg PO DAILY 07/19/16 Reported Albuterol Sulfate Neb Soln (Albuterol Sulfate) 2.5 Mg/3 Ml Vial.neb 1 Vial NEB QID 11/30/15 Reported Feosol (Ferrous Sulfate) 325 Mg Tablet 325 Mg PO DAILY 08/30/15 Rx Cetirizine Hcl 10 Mg Tablet 1 Tab PO DAILY 03/13/15 Reported Tums (Calcium Carbonate) 200 Mg Tab.chew 200 Mg PO PRN Q2HRS PRN 12/27/14 Reported Travatan Z (Travoprost) 5 Ml Drops 1 Drop EACHEYE QHS 08/12/14 Reported Comments cxr reviewed, Impression . 1. Acute on chronic respiratory failure, multifactorial in etiology. 2. Abnormal chest x-ray with recurrent right effusion 3. Pleural effusion, right more than left. Transudate secondary to acute on chronic diastolic congestive heart failure. s/p thoracentesis 4. Wheezing, resolved 5. Atrial fibrillation. 6. History of breast cancer. 7. Hypertension. Plan . Pt schedule for Pleurex cath today 1. s/p right thoracentesis. This is th e3rd since this month. d/w Son the option of PleurX catheter for skilled nursing drainage. He is agreeable. CXR today and if there is fluid reaccumulation, proceed with PleurX catheter 2. Continue Lasix per card 4. Bronchodilator. 5. Protonix for stress ulcer prophylaxis. 6. DVT prophylaxis. RADHA PUENTES MD Nov 30, 2016 09:00
[2016-11-30] MEDS: DORZOLAMIDE 2% OPHTH SOLUTION 10ML BOTTLE. OU SCH (10:30)
[2016-11-30] MEDS ORDERED: LIDOCAINE 1%/EPI 1:200,000 30 ML VIAL. ONE (13:03)
[2016-11-30] MEDS ORDERED: FENTANYL PF 100 MCG/2 ML VIAL. ONE (13:32)
[2016-11-30] MEDS ORDERED: MIDAZOLAM HCL/PF 5 MG/5 ML VIAL ONE (13:32)
[2016-11-30] MEDS ORDERED: CEFAZOLIN 1GM IVPB FOR OMNI 50 ML IV ONE ×2 (13:32→13:41)
[2016-11-30] MEDS ORDERED: FENTANYL PF 100 MCG/2 ML VIAL. IV ONE (14:00)
[2016-11-30] MEDS ORDERED: LIDOCAINE 1%/EPI 1:200,000 30 ML VIAL. INJ ONE (14:00)
[2016-11-30] MEDS ORDERED: MIDAZOLAM HCL/PF 5 MG/5 ML VIAL IV ONE (14:00)
--- NOTE | 2016-11-30 14:40 | PDOC ---
MODERATE SEDATION ASSESSMENT RISKS/ALTERNATIVES Risks/Alternatives Risks and alternatives of this type of sedation and procedure discussed with: RISK/ALTERNATIVES: Patient H & P ON CHART H & P H & P on chart and reviewed for co-morbid conditions and appropriate labs. H&P ON CHART: Yes STATUS PREG STATUS ASSESSED: N/A MEDS/ALLERGIES REVIEWED Meds/Allergies Reviewed Medications and Allergies including time and route of recently administered narcotics and sedatives. MEDS/ALLERGIES REVIEWED: Yes ASA RATING ASA RATING: III AIRWAY ASSESSMENT Airway Assessment Airway patency, oral function limitations, presence of caps, crowns, dentures, partials, and ability to extend neck assessed. AIRWAY ASSESSMENT: Yes MALLAMPATI SCORE MALLAMPATI SCORE: III PRE-SEDATION ASSESSMENT PRE-SEDATION ASSESSMENT: Yes JITENDRA FOOTE MD Nov 30, 2016 14:40
--- NOTE | 2016-11-30 14:48 | PDOC ---
Exam Channel Lip Wetter Channel Lip Wetter Naveen Candle Wrapper Candle Wrapper Merry Johnson Pre-Procedure Diagnosis Pre-Procedure Diagnosis Acute on chronic systolic and diastolic heart failure, with recurrent symptomatic right pleural effusions Post-Procedure Diagnosis Post-Procedure Diagnosis Same Procedure Performed Procedure Performed Sono/fluoro guided insertion of right chest PleurX tunneled catheter Type of Anesthesia Type of Anesthesia Local + Mod sedation Estimated Blood Loss EBL: Minimal Specimens Specimans 800 cc ambreen-clear right pleural fluid removed and discarded Drain/Tubes Drains/Tubes Right chest 15.5F tunneled PleurX catheter Condition of Patient Condition of Patient Stable. Sedated. No apparent complication. Disposition Disposition From IR return to [facility] for recovery. OK to use PleurX drainage catheter. Initial recommendation is to remove 1 liter right pleural fluid every 4-5 days. Full report to follow. JITENDRA FOOTE MD Nov 30, 2016 14:48
--- NOTE | 2016-11-30 20:37 | PDOC ---
Provider Note Provider Note She had the Pleurx catheter placed today. She is not as short of breath and not tachypneic. Lungs clear anteriorly. Home tomorrow. SANTIAGO RAY MD Nov 30, 2016 20:37
[2016-11-30] MEDS: LATANOPROST 0.005% OPHTH SOLUTION 2.5ML BOTTLE. OU SCH (21:53)
--- NOTE | 2016-12-01 04:10 | CONS ---
DATE OF CONSULTATION: 11/30/2016 REQUESTING PHYSICIAN: Dr. Mary Jo Castaneda. CHIEF COMPLAINT: Recurrent CHF exacerbation, respiratory failure. HISTORY OF PRESENT ILLNESS: The patient is an 86-year-old female who had been recently hospitalized on 11/19/2016, with shortness of breath. At that time, she was noted to have a pleural effusion and underwent thoracentesis. She returned just one week later with essentially identical symptoms. This was further evaluated by Dr. Mclean and after stabilization of her cardiac status, she underwent PleurX placement today to address the recurrent pleural effusion more permanently. PAST MEDICAL HISTORY: 1. CHF, systolic and diastolic. 2. Atrial fibrillation. 3. COPD, O2 dependent x 2 liters. 4. Chronic lymphedema with lower extremity ulcers. 5. History of dysphagia. FAMILY HISTORY: Noncontributory in this 86-year-old. SOCIAL HISTORY: Currently lives with her son. Never smoked, denies any alcohol or drug use. ALLERGIES: No known drug allergies. MEDICATIONS: MAR reviewed. REVIEW OF SYSTEMS: The patient feels her breathing is essentially at baseline. Family members dispute this, although states that she is close to normal in her breathing. The patient is eager to get home once again. Denies any chest pain, any cough or sputum production, nausea, vomiting or other symptoms in rest of organ system review. PHYSICAL EXAMINATION: VITAL SIGNS: From today show a blood pressure of 113/75, heart rate of 117, respiratory rate is 20. She is afebrile. GENERAL: This is an obese 86-year-old frail woman, alert and oriented, in no acute distress. HEENT: Shows no scleral icterus. NECK: Supple. LUNGS: Clear to auscultation with decreased breath sounds on the right. HEART: Irregular, but normal rate. ABDOMEN: Obese, positive bowel sounds. EXTREMITIES: Show no edema. LABORATORY DATA: CBC with a WBC of 6.8, hemoglobin 13, platelets of 159. Chemistries with a BUN and creatinine of 20 and 0.9. Electrolytes essentially within normal limits. Mildly elevated CO2 at 33. ASSESSMENT AND PLAN: The patient is an 86-year-old woman with a congestive heart failure and reaccumulation of pleural fluid. She actually tolerated multiple thoracenteses well; however, at times between taps seemed to be getting shorter. A PleurX has been discussed with her and her family and will be placed later today. This should afford her some freedom of having to return to the hospital for taps. The patient and family will have to be educated and home health will be following at home at least in the beginning. She is on metoprolol as well as on Lasix at home at a fairly high dose of 80 mg b.i.d. This will continue. We will have to monitor fluid status closely, especially daily if fluid withdrawals are accomplished at home. For her shortness of breath, she is on albuterol nebulizers p.r.n. to help her optimize her breathing status. There is no documented history of COPD in this patient. Thank you so much Dr. Castaneda for allowing us to participate in the care of this very nice patient. We will follow along with you. JANETT GORDON MD DR: OTTONIEL/nts JOB#: [id number] / [id number] MARY JO Carney MD
[2016-12-01] MEDS: OXYCODONE/APAP 5/325 TABLET. PO PRN ×2 (06:36→12:55)
[2016-12-01 07:00] VITALS: BP 104/68
--- NOTE | 2016-12-01 07:26 | RAD ---
Ultrasound and fluoroscopy guided insertion of a Pleurx tunneled pleural drain Indication: 86-year-old female with acute on chronic systolic and diastolic heart failure, with recurrent, symptomatic right pleural effusion. Right chest tunneled Pleurx drainage catheter has been requested by pulmonary. Fluoro time: 0.9 minutes Kerma-Area Product: 2 Gycm2 Moderate sedation: 26 minutes moderate sedation was provided utilizing a total of 1.5 mg Versed and 75 mcg fentanyl, IV. The patient was appropriately monitored by a qualified independent observer throughout the course of moderate sedation. Consent: The procedure was explained in its entirety to the patient and/or the patient's designated customer loyalty representative by a member of the treatment team. This included a discussion of risks and benefits and commonly accepted alternatives to the procedure, as well as expected consequences of no treatment at all. Discussion of risks included, but was not limited to, those that are most frequent and those that are rare, but possibly severe or life-threatening, as well as the possibility of unforeseen complications. Sterility: All elements of maximal sterile barrier technique, including the use of a cap, mask, sterile gown, sterile gloves, large sterile sheet, appropriate hand hygiene, and 2% chlorhexidine for cutaneous antisepsis (or acceptable alternative antiseptic per current guidelines) were utilized. Antibiotic: A single dose of Ancef was administered within 1 hour of the procedure start time. Procedure: Informed consent was obtained from the patient. She was placed supine on the angiography table. Preliminary ultrasound examination was performed over abdomen. A a low right lateral chest skin site suitable for Pleurx catheter insertion was selected and marked. That area was documented with a single hard copy ultrasound image. Low right chest and upper abdomen were then prepped and draped in the usual sterile fashion, utilizing all elements of maximal sterile barrier technique, as described above. Conscious sedation was provided with IV Versed and fentanyl. 1 g Ancef was given IV, prophylactically. Using aseptic technique and local anesthesia, a small skin incision was made along lateral aspect of lower right chest. Using aseptic technique and local anesthesia and direct ultrasound guidance, successful percutaneous entry was achieved into the low right posterolateral pleural space utilizing a micropuncture needle. This needle was exchanged over a guidewire for a micropuncture sheath. Using aseptic technique and local anesthesia, a second small skin incision was then made along anterior aspect of right upper quadrant, approximately 10 cm medial to, and slightly inferior to, the initial skin incision. A subcutaneous tunnel was then fashioned between the two skin incisions. The 15.5 Belgian silicone catheter from a Pleurx drain system was then pulled through this subcutaneous tunnel from medial to lateral, utilizing the tunneling device provided. The micropuncture sheath was then removed over an Amplatz wire. The percutaneous tract was then dilated, and the 15.5 Belgian Pleurx catheter was easily introduced into through a 16 Belgian peel-away sheath into right pleural space under fluoroscopic control. Satisfactory Pleurx drain position, extending into right chest apex, was then confirmed with a single fluoroscopic spot image. 800 cc of ambreen-colored clear right pleural fluid was then easily removed, confirming satisfactory function of the Pleurx drain. The Pleurx drain was then secured in place at the skin exit site with pursestring suture and sterile dressing. The initial low right lateral chest skin incision was then closed with 2-0 Vicryl, 4-0 Vicryl, Steri-Strips, and sterile dressing. Patient tolerated the procedure well without apparent complication. Impression: Successful, uneventful ultrasound and fluoroscopy guided insertion of a right chest 15.5 Belgian Pleurx tunneled drainage catheter, as described.
[2016-12-01] MEDS: ALBUTEROL SULFATE 2.5 MG/3 ML NEBU. NEB SCH ×2 (08:14→11:50)
[2016-12-01] MEDS: BUDESONIDE 0.5 MG/2 ML NEBU. NEB SCH (08:15)
[2016-12-01] MEDS: FUROSEMIDE 80 MG TABLET PO SCH (08:39)
[2016-12-01] MEDS: MAGNESIUM OXIDE 400 MG TABLET PO SCH (08:39)
[2016-12-01] MEDS: CALCIUM CARBONATE 500 MG TAB.CHEW PO SCH (08:39)
[2016-12-01] MEDS: ASPIRIN ENTERIC COATED 325 MG TABLET.DR. PO SCH (08:39)
[2016-12-01] MEDS: FERROUS SULFATE 325 MG TABLET PO SCH (08:39)
[2016-12-01] MEDS: MULTIVITAMIN EYE FORMULA CAPSULE. PO SCH (08:39)
[2016-12-01] MEDS: METOPROLOL SUCC 24HR ER 25 MG TAB.ER.24H. PO SCH (08:40)
--- NOTE | 2016-12-01 08:48 | PDOC ---
PULMONARY PROGRESS NOTES Subjective not more soa Vitals Vital Signs Date Time Temp Pulse Resp B/P Pulse Ox O2 Delivery O2 Flow Rate FiO2 12/01/16 08:40 111 111/79 12/01/16 08:20 96 Nasal Cannula 4.0 12/01/16 07:00 97.6 97.6 11/30/16 22:43 20 Comments ros as mentioned as above other sys otherwise neg ROS: No Nausea, No Chest Pain, No Abdominal Pain General: Alert HEENT: Other (nc at perrl) Lungs: Other (bs right) Cardiovascular: S1, S2 Abdomen: Soft, Non-tender Neuro Exam: Alert, Oriented Extremities: No Edema Skin: Warm Medications Active Scripts Medications Dose Route/Sig Days Date Category Calcium 600 + Vit D 200 Tablet (Calcium Carbonate/Vitamin D3) 1 Each Tablet 1 Each PO DAILY 11/02/16 Reported Azopt (Brinzolamide) 10 Ml Drops.susp 1 Drop EACHEYE DAILY 11/02/16 Reported Lutein-Zeaxanthin 25-5 Mg Sfgl (Lutein/Zeaxanthin) 1 Each Capsule 1 Each PO DAILY 11/02/16 Reported Lasix (Furosemide) 80 Mg Tablet 1 Tab PO BID 11/02/16 Reported Aspirin 325 Mg Tablet 1 Tab PO DAILY 07/19/16 Reported Percocet 5-325 Mg Tablet (Oxycodone/Acetaminophen) 1 Each Tablet 0.5 Tab PO Q8HRS PRN 07/19/16 Reported Toprol Xl (Metoprolol Succinate) 25 Mg Tab.er.24h 1.5 Tab PO DAILY 07/19/16 Reported Magnesium Oxide 400 Mg Tablet 500 Mg PO DAILY 07/19/16 Reported Albuterol Sulfate Neb Soln (Albuterol Sulfate) 2.5 Mg/3 Ml Vial.neb 1 Vial NEB QID 11/30/15 Reported Feosol (Ferrous Sulfate) 325 Mg Tablet 325 Mg PO DAILY 08/30/15 Rx Cetirizine Hcl 10 Mg Tablet 1 Tab PO DAILY 03/13/15 Reported Tums (Calcium Carbonate) 200 Mg Tab.chew 200 Mg PO PRN Q2HRS PRN 12/27/14 Reported Travatan Z (Travoprost) 5 Ml Drops 1 Drop EACHEYE QHS 08/12/14 Reported Comments cxr reviewed, Impression . 1. Acute on chronic respiratory failure, multifactorial in etiology. 2. Abnormal chest x-ray with recurrent right effusion 3. Pleural effusion, right more than left. Transudate secondary to acute on chronic diastolic congestive heart failure. s/p thoracentesis 4. Wheezing, resolved 5. Atrial fibrillation. 6. History of breast cancer. 7. Hypertension. Plan . Pt schedule for Pleurex cath today 1. s/p right thoracentesis. This is th e3rd since this month. 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 He is agreeable. CXR today and if there is fluid reaccumulation, proceed with PleurX catheter 2. Continue Lasix per card 4. Bronchodilator. 5. Protonix for stress ulcer prophylaxis. 6. DVT prophylaxis. RADHA PUENTES MD Dec 01, 2016 08:48
[2016-12-01 11:00] VITALS: BP 88/61
[2016-12-01] MEDS: DORZOLAMIDE 2% OPHTH SOLUTION 10ML BOTTLE. OU SCH (11:43)
[2016-12-01 12:38] LABS: CALCIUM 8.9 mg/dL (8.5-10.1); GFR 52.3; POTASSIUM 3.4 mmol/L (3.5-5.1)
[2016-12-01 12:45] LABS: ALBUMIN 2.6 g/dL (3.4-5.0); ALBUMIN/GLOBULIN RATIO 0.7 (1.0-1.7); TOTAL BILIRUBIN 1.7 mg/dL (0.2-1.0); TOTAL PROTEIN 6.3 g/dL (6.4-8.2)
[2016-12-01] MEDS ORDERED: ALBU2.5V14 NEB (14:08)
[2016-12-01] MEDS ORDERED: ASPI325T11 PO ×2 (14:09→14:43)
[2016-12-01] MEDS ORDERED: BUDE0.5A NEB ×2 (14:10→14:44)
[2016-12-01] MEDS ORDERED: CALC300T5 PO ×2 (14:31→14:45)
[2016-12-01] MEDS ORDERED: DORZ10DR7 EACHEYE (14:32)
[2016-12-01] MEDS ORDERED: FERR-26 PO ×2 (14:32→14:46)
[2016-12-01] MEDS ORDERED: FURO80TA3 PO ×2 (14:33→14:46)
[2016-12-01] MEDS ORDERED: MAGN400T3 PO ×2 (14:34→14:47)
[2016-12-01] MEDS ORDERED: LATA2.5D2 EACHEYE ×2 (14:34→14:46)
[2016-12-01] MEDS ORDERED: VIT1TABL32 PO ×2 (14:36→14:47)
[2016-12-01] MEDS ORDERED: METO25TA9 PO ×2 (14:36→14:47)
[2016-12-01] MEDS ORDERED: OXYC-323 PO ×2 (14:37→14:48)
[2016-12-01] MEDS ORDERED: BRIN10DR EACHEYE ×2 (14:38→14:50)
[2016-12-01] MEDS ORDERED: CETI10TA16 PO ×2 (14:39→14:50)
[2016-12-01] MEDS ORDERED: CALC1TAB75 PO (14:39)
[2016-12-01] MEDS ORDERED: ALBU2.5V5 NEB (14:42)
[2016-12-01] MEDS ORDERED: DORZ10DR OU (14:45)
--- NOTE | 2016-12-01 14:52 | PDOC ---
PROGRESS NOTES Chief Complaint Chief Complaint [error] Physical Exam Lungs: Other (bs right) JANETT GORDON MD Dec 01, 2016 14:52
--- NOTE | 2016-12-02 02:32 | DS ---
DATE OF DISCHARGE: 12/01/2016 HOSPITAL COURSE: This is an 86-year-old white female who was brought back again within a few days of discharge to the Emergency Room because of the increasing shortness of breath and swelling of her legs. She had been on a high dose of diuretics in the form of Lasix 80 mg twice a day. Chest x-ray showed a reaccumulation of the pleural fluid in fact more than just about a week ago. Since this was a Tuesday and she was so symptomatic over the weekend, a thoracentesis was performed on Tuesday. 1300 mL of fluid was obtained. She felt better. She was seen in consultation by Dr. Ellis. Because this was the third thoracentesis she is having in a month, he felt that she should receive a PleurX catheter. This was placed on the by Dr. Hodge. She was feeling much better after further removal of fluid. On the day of admission, she was breathing much better. She was not tachypneic. Lungs were clear. She was anxious to go home. She was thus discharged. The PleurX catheter is in place and coiled and bandaged on her chest. The visiting nurses will empty it every 5 days. Her labs at the time of discharge showed a BUN of 17, creatinine of 1. The sodium was 144, potassium was 3.4. The albumin was 2.6. We will need to follow her albumin. Her son will be asked to give her some extra potassium. She did have a mild elevation of her bilirubin to 1.7. This will simply be followed as an outpatient. Because of her age and multiple other problems, there is no point in ____ her asymptomatic hyperbilirubinemia. FINAL DIAGNOSES: 1. Acute on chronic diastolic congestive heart failure. 2. Mitral regurgitation. 3. Permanent atrial fibrillation. 4. Malnutrition. 5. Recurrent pleural effusion. 6. Hyperbilirubinemia. 7. Hypokalemia. HOMEGOING INSTRUCTIONS: 1. Activities to tolerance. 2. Oxygen at 3 liters per minute. 3. Albuterol via nebulizer 4 times a day. 4. Aspirin 325 mg a day. 5. Eye drops. 6. Budesonide 0.5 mg twice a day. 7. Calcium carbonate. 8. Ferrous sulfate 325 mg a day. 9. Lasix 80 mg twice a day. 10. Magnesium oxide 400 mg a day. 11. Toprol-XL 25 mg a day. 12. Percocet p.r.n. 13. Potassium chloride 20 mEq twice a day. PLAN: She will be followed by home health who will drain the PleurX catheter every 5 days. Labs for CMP will be drawn once a week and her albumin will be tracked as also her potassium. She will be seen in the office in 2 weeks. SANTIAGO RAY MD DR: MICKI/jacques JOB#: [id number] / [id number]
== END 2016-12-01 15:00 | disposition home health service (06) | DRG 291 ==
LOC: ER 15:16 → 5 SOUTH 17:40
PROVIDERS: ADMIT Specialist; ATTEND Specialist
PROC: 0W9930Z Drainage of Right Pleural Cavity with Drainage Device, Percutaneous Approach (ICD-10-PCS; 2016-11-28)
PROC: 0W9930Z Drainage of Right Pleural Cavity with Drainage Device, Percutaneous Approach (ICD-10-PCS; principal; 2016-11-29)
DX: I13.0 Hypertensive heart and chronic kidney disease with heart failure and stage 1 through stage 4 chronic kidney disease, or unspecified chronic kidney disease (principal); J96.20 Acute and chronic respiratory failure, unspecified whether with hypoxia or hypercapnia; I50.43 Acute on chronic combined systolic (congestive) and diastolic (congestive) heart failure; E46 Unspecified protein-calorie malnutrition; R17 Unspecified jaundice; J90 Pleural effusion, not elsewhere classified; I27.2 Other secondary pulmonary hypertension; N18.9 Chronic kidney disease, unspecified; E87.6 Hypokalemia; I08.3 Combined rheumatic disorders of mitral, aortic and tricuspid valves; I48.2 Chronic atrial fibrillation; J44.9 Chronic obstructive pulmonary disease, unspecified; F41.9 Anxiety disorder, unspecified; J45.909 Unspecified asthma, uncomplicated; Z79.82 Long term (current) use of aspirin; Z82.49 Family history of ischemic heart disease and other diseases of the circulatory system; Z85.3 Personal history of malignant neoplasm of breast; Z99.81 Dependence on supplemental oxygen; Z68.22 Body mass index [BMI] 22.0-22.9, adult; Z91.048 Other nonmedicinal substance allergy status
CPT/HCPCS: 32550; 36415; 71010; 75989; 76942; 80048; 80053; 82947; 83880; 84484; 85007; 85027; 85610; 93005; 93971; 94250; 94640; 94760; C1729; C1892; J0690; J2250; J3010; 97116; 97530; 99285-25

== ENCOUNTER 2016-12-12 00:14 | Emergency (ER) | payer MEDICARE, OTHER ==
[~2016-12-12] VITALS: Ht 147.3 cm; Wt 61.2 kg
[~2016-12-12 00:14] MED LIST changes: +ASPI325T11 PO; +BUDE0.5A NEB; +CALC300T5 PO; +DORZ10DR OU; +DORZ10DR7 EACHEYE; +FERR-26 PO; +FURO80TA3 PO; +LATA2.5D2 EACHEYE; +VIT1TABL32 PO
--- NOTE | 2016-12-12 00:46 | PHYS DOC ---
Past Medical History Past Medical History: A-Fib, Anxiety, Arthritis, CHF, COPD, Hypertension, MRSA , UTI, Other Additional Past Medical Histor: BREAT CA, UTI, SCOLOSIS, DVT, 02 AT HOME Past Surgical History: Pacemaker, Other Additional Past Surgical Histo: R LUMPECTOMY Alcohol Use: None Drug Use: None Adult General Chief Complaint Chief Complaint: MECHANICAL FALL HPI HPI 78-year-old female with a history of a right pleural effusion and congestive heart failure who presents the emergency department after sustaining a mechanical fall today. She reports walking at her home when she fell. She denies losing consciousness. She did sustain injury to the back of her head and sustained a laceration with bleeding. She arrives today here by paramedics. She complains of a mild headache without neck pain. She denies any other injuries. She denies chest pain shortness of breath. Review of systems is negative for chest pain shortness of breath abdominal pain nausea vomiting fevers chills or any other injuries. All other review of systems is negative unless otherwise noted in history of present illness. Review of Systems Review of Systems SEE ABOVE. Current Medications Current Medications Current Medications Medications (Trade) Dose Ordered Sig/Elle Start Time Stop Time Status Last Admin Dose Admin Albuterol Sulfate (Ventolin Neb Soln) 10 mg 1X ONCE 12/12/16 02:30 12/12/16 02:30 DC Calcium Gluconate (Calcium Gluconate) 1,000 mg 1X ONCE 12/12/16 02:30 12/12/16 02:30 DC Dextrose (Dextrose 50%-Water Syringe) 25 gm 1X ONCE 12/12/16 02:30 12/12/16 02:30 DC Insulin Human Regular (Novolin R Vial) 10 unit 1X ONCE 12/12/16 02:30 12/12/16 02:30 DC Allergies Allergies Allergies Coded Allergies Type Severity Reaction Last Updated Verified adhesive Allergy Intermediate 04/04/15 Yes I S O L A T I O N *CONTACT* Allergy Unknown 11/04/16 Yes Physical Exam Physical Exam Constitutional: Well developed, well nourished, no acute distress, non-toxic appearance. [] HENT: Normocephalic, patient has a 3 cm laceration of the occiput. No other abrasions or depressed skull fractures present., bilateral external ears normal , oropharynx moist, no oral exudates, nose normal. Eyes: PERRLA, EOMI, conjunctiva normal, no discharge. [] Neck: Normal range of motion, no tenderness, supple, no stridor. Nontender cervical thoracic or lumbar spine. No ecchymosis lacerations abrasions or step- offs present. Cardiovascular:Heart rate regular rhythm, no murmur [] Lungs & Thorax: Bilateral breath sounds clear to auscultation [] Abdomen: Soft nontender abdomen without rebound tenderness or guarding present. Skin: Warm, dry, no erythema, no rash. [] Back: No tenderness, no CVA tenderness. [] Extremities: No tenderness, no cyanosis, no clubbing, ROM intact, no edema. Neurologic: Alert and oriented X 3, normal motor function, normal sensory function, no focal deficits noted. [] Psychologic: Affect normal, judgement normal, mood normal. Current Patient Data Lab Values Laboratory Tests Test 12/12/16 01:15 White Blood Count 6.7x10^3/uL (4.0-11.0) Red Blood Count 4.19x10^6/uL (3.50-5.40) Hemoglobin 12.2g/dL (12.0-15.5) Hematocrit 38.6% (36.0-47.0) Mean Corpuscular Volume 92fL (79-100) Mean Corpuscular Hemoglobin 29pg (25-35) Mean Corpuscular Hemoglobin Concent 32g/dL (31-37) Red Cell Distribution Width 17.7% (11.5-14.5) H Platelet Count 176x10^3/uL (140-400) Neutrophils (%) (Auto) 66% (31-73) Lymphocytes (%) (Auto) 15% (24-48) L Monocytes (%) (Auto) 18% (0-9) H Eosinophils (%) (Auto) 2% (0-3) Basophils (%) (Auto) 1% (0-3) Neutrophils # (Auto) 4.4x10^3uL (1.8-7.7) Lymphocytes # (Auto) 1.0x10^3/uL (1.0-4.8) Monocytes # (Auto) 1.2x10^3/uL (0.0-1.1) H Eosinophils # (Auto) 0.1x10^3/uL (0.0-0.7) Basophils # (Auto) 0.0x10^3/uL (0.0-0.2) Sodium Level 141mmol/L (136-145) Potassium Level 5.7mmol/L (3.5-5.1) H Chloride Level 100mmol/L (98-107) Carbon Dioxide Level 38mmol/L (21-32) H Anion Gap 3 (6-14) L Blood Urea Nitrogen 40mg/dL (7-20) H Creatinine 0.9mg/dL (0.6-1.0) Estimated GFR (Cockcroft-Gault) 59.1 Glucose Level 103mg/dL (70-99) H Calcium Level 9.5mg/dL (8.5-10.1) Troponin I Quantitative < 0.017ng/mL (0.000-0.055) Laboratory Tests 12/12/16 01:15 Laboratory Tests 12/12/16 01:15 EKG EKG [] Radiology/Procedures Radiology/Procedures [] Course & Med Decision Making Course & Med Decision Making Pertinent Labs and Imaging studies reviewed. (See chart for details) [] 78-year-old female presenting to the emergency department today after sustaining a mechanical fall and head injury with laceration of the posterior occiput. This was repaired in the emergency department. The patient was on her baseline oxygen requirement here in the emergency department. Chest x-ray similar to previous. She has a drain in place currently for her pleural effusion. Head neck CT negative for acute fracture dislocation. Her blood work showed elevated potassium without any EKG changes. The patient reports taking oral potassium at home and I instructed her stop taking this and to follow-up with her doctor tomorrow. Dragon Disclaimer Dragon Disclaimer This electronic medical record was generated, in whole or in part, using a voice recognition dictation system. Departure Departure Impression: Primary Impression: Fall Additional Impressions: Scalp laceration Head injury Disposition: HOME, SELF-CARE Condition: STABLE Referrals: SANTIAGO RAY MD (PCP) Patient Instructions: Fall Prevention and Home Safety, Laceration Care, Adult Additional Instructions: Thank you for allowing us to participate in your care today. Followup with your primary care physician in 3 days if your symptoms do not improve. If you do not have a primary care provider you can ask for a list of our primary care providers. Return to the emergency department you have any new or concerning findings. This should be evaluated by the primary care physician and any necessary consulting services for continued management within a few days after discharge. Return to emergency room if you have any new or concerning symptoms including but not limited to fever, chills, nausea, vomiting, intractable pain, any new rashes, chest pain, shortness of air, uncontrolled bleeding, difficulty breathing, and/or vision loss. Laceration Repair Lac Repair Indication: [] Scalp laceration Procedure: The patient was placed in the appropriate position and anesthesia around the occiput. The area was cleansed with saline. Laceration was closed using simple interrupted method of using logan. 3 logan were used. The laceration was approximately 3 cm in length.. Total repaired wound length: 3cm. Other Items: The patient tolerated the procedure . Complications: none. Problem Qualifiers Primary Impression: Fall Encounter type: initial encounter Qualified Code: W19.XXXA - Unspecified fall, initial encounter Additional Impressions: Scalp laceration Encounter type: initial encounter Qualified Code: S01.01XA - Laceration without foreign body of scalp, initial encounter Head injury Encounter type: initial encounter Qualified Code: S09.90XA - Unspecified injury of head, initial encounter JONATAN OVALLE MD Dec 12, 2016 00:46
[2016-12-12 01:33] LABS: BASO % 1 % (0-3); EOS % 2 % (0-3); HEMATOCRIT 38.6 % (36.0-47.0); HEMOGLOBIN 12.2 g/dL (12.0-15.5); LYMPH % 15 % (24-48); MEAN CORPUSCULAR HEMOGLOBIN 29 pg (25-35); MEAN CORPUSCULAR HGB CONC 32 g/dL (31-37); MEAN CORPUSCULAR VOLUME 92 fL (79-100); MONO % 18 % (0-9); NEUT % 66 % (31-73); PLATELET COUNT 176 x10^3/uL (140-400); RED BLOOD COUNT 4.19 x10^6/uL (3.50-5.40); RED CELL DISTRIBUTION WIDTH 17.7 % (11.5-14.5); WHITE BLOOD COUNT 6.7 x10^3/uL (4.0-11.0)
[2016-12-12 01:42] LABS: CALCIUM 9.5 mg/dL (8.5-10.1); CREATININE 0.9 mg/dL (0.6-1.0); GFR 59.1; POTASSIUM 5.7 mmol/L (3.5-5.1)
--- NOTE | 2016-12-12 01:46 | RAD ---
INDICATION: Trauma COMPARISON: November 2015 TECHNIQUE: Axial CT images of cervical spine with coronal and sagittal reformats processed. Axial CT images of head. One or more of the following individualized dose reduction techniques were utilized for this examination: 1. Automated exposure control; 2. Adjustment of the mA and/or kV according to patient size; 3. Use of iterative reconstruction technique. FINDINGS: Head: No midline shift. Basilar cistern patent. No gross hemorrhage or mass. Ventricles and sulci within normal limits in caliber for patients age. No gross skull fracture. Cervical: No definite acute fracture or dislocation. No perivertebral hematoma. IMPRESSION: No gross intracranial hemorrhage or mass. Scattered foci of low attenuation within the white matter. Nonspecific but can be seen with chronic small vessel ischemic disease. There is also a repeat demonstration of her region of low attenuation within the left cerebral hemisphere posteriorly. Could be sequela of old infarct. Small scalp cephalohematoma posteriorly. No definite acute fracture or dislocation of the cervical spine. Degenerative changes throughout cervical spine Partial visualization of right greater than left pleural effusion. Electronically signed by: Jose Patricio (Dec 12, 2016 01:45:15)
[2016-12-12 01:51] VITALS: BP 123/63
[2016-12-12] MEDS ORDERED: ALBUTEROL SULFATE 2.5 MG/3 ML NEBU. CONT NEB ONE (02:30)
[2016-12-12] MEDS ORDERED: CALCIUM GLUCONATE 1,000 MG/10 ML VIAL. IVP ONE (02:30)
[2016-12-12] MEDS ORDERED: INSULIN REGULAR 100 UNIT/ML 10ML VIAL. IV ONE (02:30)
[2016-12-12] MEDS ORDERED: DEXTROSE 50% 25 GM / 50ML DISP.SYRIN. IV ONE (02:30)
[2016-12-12 02:35] LABS: BILIRUBIN,URINE NEGATIVE (NEG); GLUCOSE,URINE NEGATIVE (NEG); NITRITE,URINE NEGATIVE (NEG); PROTEIN,URINE NEGATIVE (NEG-TRACE); UROBILINOGEN,URINE 0.2 mg/dL (0.2 mg/dL)
[2016-12-12 02:49] LABS: BACTERIA,URINE 0 /HPF (0-FEW); RBC,URINE OCC /HPF (0-2); SQUAMOUS EPITHELIAL CELL,UR FEW /LPF
--- NOTE | 2016-12-12 08:19 | RAD ---
Portable AP upright chest x-ray performed at 0046 Clinical indications: Fall. Pain. Comparison: November 29, 2016. Findings: Again seen is a moderate-sized right-sided pleural effusion and associated compressive atelectasis or infiltrate of the right lung base which has not changed significantly. Again seen is a small left-sided pleural effusion with associated compressive atelectasis or infiltrate of the left lung base which has improved. There is improved aeration of the left lung base. Pacemaker is again noted. Heart size is enlarged but stable. Mediastinum is unchanged. No pneumothorax is seen. Old healed fracture of the lateral aspect of the left 10th rib is seen. IMPRESSION: Bilateral pleural effusions. Improvement on the left side.
--- NOTE | 2016-12-12 12:35 | EKG ---
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
== END 2016-12-12 03:00 | disposition home or self-care (01) ==
LOC: ER 00:14
DX: S01.01XA Laceration without foreign body of scalp, initial encounter (principal); I48.91 Unspecified atrial fibrillation; F41.9 Anxiety disorder, unspecified; M19.90 Unspecified osteoarthritis, unspecified site; I11.0 Hypertensive heart disease with heart failure; I50.9 Heart failure, unspecified; J44.9 Chronic obstructive pulmonary disease, unspecified; Z87.440 Personal history of urinary (tract) infections; Z86.14 Personal history of Methicillin resistant Staphylococcus aureus infection; Z86.718 Personal history of other venous thrombosis and embolism; Z95.0 Presence of cardiac pacemaker; Z88.8 Allergy status to other drugs, medicaments and biological substances; Z91.041 Radiographic dye allergy status; W19.XXXA Unspecified fall, initial encounter; Y93.01 Activity, walking, marching and hiking; Y92.098 Other place in other non-institutional residence as the place of occurrence of the external cause; Y99.8 Other external cause status
CPT/HCPCS: 12002; 36415; 70450; 71010; 72125; 80048; 81001; 84484; 85027; 87086; 93005; 94640; 99285-25

== ENCOUNTER 2016-12-17 18:37 | Inpatient (IN) | payer MEDICARE, OTHER ==
[~2016-12-17] VITALS: Ht 162.6 cm; Wt 65.9 kg
[2016-12-17] MEDS ORDERED: VANCOMYCIN PER PHARMACY MC PRN (19:30)
[2016-12-17] MEDS ORDERED: IV NORMAL SALINE 250ML 250 ML IV ONE (19:30)
[2016-12-17 19:43] LABS: BASO # 0.1 x10^3/uL (0.0-0.2); BASO % 1 % (0-3); EOS % 1 % (0-3); HEMATOCRIT 38.1 % (36.0-47.0); HEMOGLOBIN 12.5 g/dL (12.0-15.5); LYMPH # 1.2 x10^3/uL (1.0-4.8); LYMPH % 15 % (24-48); MEAN CORPUSCULAR HEMOGLOBIN 30 pg (25-35); MEAN CORPUSCULAR HGB CONC 33 g/dL (31-37); MEAN CORPUSCULAR VOLUME 90 fL (79-100); MONO % 17 % (0-9); NEUT % 66 % (31-73); PLATELET COUNT 203 x10^3/uL (140-400); RED BLOOD COUNT 4.23 x10^6/uL (3.50-5.40); RED CELL DISTRIBUTION WIDTH 17.6 % (11.5-14.5); WHITE BLOOD COUNT 8.1 x10^3/uL (4.0-11.0)
[2016-12-17] MEDS ORDERED: VANCOMYCIN 1.5 GM in IV NORMAL SALINE 500ML BAG 500 ML IV ONE (19:45)
[2016-12-17 20:01] LABS: CALCIUM 9.5 mg/dL (8.5-10.1); CREATININE 1.2 mg/dL (0.6-1.0); GFR 42.4; POTASSIUM 4.7 mmol/L (3.5-5.1)
[2016-12-17 20:06] LABS: ALBUMIN 2.9 g/dL (3.4-5.0); ALBUMIN/GLOBULIN RATIO 0.7 (1.0-1.7); TOTAL BILIRUBIN 1.3 mg/dL (0.2-1.0)
--- NOTE | 2016-12-17 20:09 | PHYS DOC ---
Past Medical History Past Medical History: A-Fib, Anxiety, Arthritis, CHF, COPD, Hypertension, MRSA , UTI, Other Additional Past Medical Histor: BREAT CA, UTI, SCOLOSIS, DVT, 02 AT HOME Past Surgical History: Pacemaker, Other Additional Past Surgical Histo: R LUMPECTOMY, RIGHT MASTECTOMY, RIGHT DRAIN FOR PLURAL EFFUSION Alcohol Use: None Drug Use: None Adult General Chief Complaint Chief Complaint: LOWER EXTREMITY SWELLING HPI HPI Patient is a 86 year old female who presents with BLE weeping. Patient was seen by home health nurse this morning who spoke with Dr. Ray about this and was told patient needed to come to ED for evaluation. Patient is poor historian and able to contribute little to history. She is unsure how long this has been going, if she is having any pain, or if she has had this in the past. R lower leg noted to be erythematous, patient also unable to give duration of this. Patient is able to deny chest discomfort or SOB. Patient accompanied by her daughter (who does not stay with her and is unsure of the answers to these questions as well). She has not taken anything specifically for these symptoms today. Review of Systems Review of Systems Unable to complete ROS as patient is poor historian B/l lower extremity weeping Current Medications Current Medications Current Medications Medications (Trade) Dose Ordered Sig/Elle Start Time Stop Time Status Last Admin Dose Admin Acetaminophen (Tylenol) 650 mg PRN Q4HRS PRN 12/17/16 21:30 12/18/16 21:29 Morphine Sulfate 2 mg PRN Q2HR PRN 12/17/16 21:30 12/18/16 21:29 Ondansetron HCl (Zofran) 4 mg PRN Q8HRS PRN 12/17/16 21:30 12/18/16 21:29 Sodium Chloride 250 ml @ 250 mls/hr 1X ONCE 12/17/16 19:30 12/17/16 20:29 DC 12/17/16 19:30 250 MLS/HR Vancomycin HCl 1 each 1 each 1X ONCE 12/17/16 19:30 12/17/16 19:31 UNV Vancomycin HCl/ Sodium Chloride (Iv Sodium Chloride 0.9% 500ml Bag) 500 ml @ 250 mls/hr 1X ONCE 12/17/16 19:45 12/17/16 21:44 12/17/16 19:40 250 MLS/HR Allergies Allergies Allergies Coded Allergies Type Severity Reaction Last Updated Verified adhesive Allergy Intermediate 04/04/15 Yes I S O L A T I O N *CONTACT* Allergy Unknown 11/04/16 Yes Physical Exam Physical Exam Constitutional: Well developed, well nourished, no acute distress, non-toxic appearance HENT: Normocephalic, atraumatic, bilateral external ears normal Eyes: EOMI, conjunctiva normal, no discharge Neck: Normal range of motion, no stridor Cardiovascular: Tachycardic, irregular rhythm, no murmur Lungs & Thorax: Coarse b/l breath sounds; PleurX in place lower R anterior chest Abdomen: Bowel sounds normal, soft, non-distended, no TTP Skin: Warm, dry, no erythema, no rash Extremities: Multiple vesicular lesions on BLE; R lower leg erythematous; 1+ DP pulse b/l, 2 sec cap refill; motor function and sensation to light touch preserved; small wound L lateral ankle without surrounding erythema Neurologic: Alert, no gross deficits noted Current Patient Data Vital Signs Vital Signs Date Time Temp Pulse Resp B/P Pulse Ox O2 Delivery O2 Flow Rate FiO2 12/17/16 20:13 104 99/68 97 Nasal Cannula 3 12/17/16 18:43 98.4 24 98.4 Lab Values Laboratory Tests Test 12/17/16 19:08 White Blood Count 8.1x10^3/uL (4.0-11.0) Red Blood Count 4.23x10^6/uL (3.50-5.40) Hemoglobin 12.5g/dL (12.0-15.5) Hematocrit 38.1% (36.0-47.0) Mean Corpuscular Volume 90fL (79-100) Mean Corpuscular Hemoglobin 30pg (25-35) Mean Corpuscular Hemoglobin Concent 33g/dL (31-37) Red Cell Distribution Width 17.6% (11.5-14.5) H Platelet Count 203x10^3/uL (140-400) Neutrophils (%) (Auto) 66% (31-73) Lymphocytes (%) (Auto) 15% (24-48) L Monocytes (%) (Auto) 17% (0-9) H Eosinophils (%) (Auto) 1% (0-3) Basophils (%) (Auto) 1% (0-3) Neutrophils # (Auto) 5.3x10^3uL (1.8-7.7) Lymphocytes # (Auto) 1.2x10^3/uL (1.0-4.8) Monocytes # (Auto) 1.4x10^3/uL (0.0-1.1) H Eosinophils # (Auto) 0.1x10^3/uL (0.0-0.7) Basophils # (Auto) 0.1x10^3/uL (0.0-0.2) Sodium Level 140mmol/L (136-145) Potassium Level 4.7mmol/L (3.5-5.1) Chloride Level 96mmol/L (98-107) L Carbon Dioxide Level 39mmol/L (21-32) H Anion Gap 5 (6-14) L Blood Urea Nitrogen 48mg/dL (7-20) H Creatinine 1.2mg/dL (0.6-1.0) H Estimated GFR (Cockcroft-Gault) 42.4 BUN/Creatinine Ratio 40 (6-20) H Glucose Level 93mg/dL (70-99) Lactic Acid Level 2.2mmol/L (0.4-2.0) H Calcium Level 9.5mg/dL (8.5-10.1) Total Bilirubin 1.3mg/dL (0.2-1.0) H Aspartate Amino Transferase (AST) 41U/L (15-37) H Alanine Aminotransferase (ALT) 17U/L (14-59) Alkaline Phosphatase 160U/L (46-116) H LP-Mln-I-Type Natriuretic Peptide 4426pg/mL (0-449) H Total Protein 7.0g/dL (6.4-8.2) Albumin 2.9g/dL (3.4-5.0) L Albumin/Globulin Ratio 0.7 (1.0-1.7) L Laboratory Tests 12/17/16 19:08 Laboratory Tests 12/17/16 19:08 EKG EKG EKG (my read): irregular rhythm, rate 99, RAD, QTc 481ms, PVC noted, TWI lead III/V1-3, nonspecific ST changes Radiology/Procedures Radiology/Procedures CXR: pending Course & Med Decision Making Course & Med Decision Making Pertinent Labs and Imaging studies reviewed. (See chart for details) Patient is 86 year old female who presents with BLE weeping lesions (due to CHF? ), RLE erythema. Concern for cellulitis given RLE erythema. Labs ordered to evaluate. Small IVF bolus (250cc) ordered as well as vancomycin to cover skin sanket. Labs notable for elevated lactic acid and BNP. Several electrolyte abnormalities noted. Discussed results with patient. Discussed with Dr. Ray, will admit under her care for further evaluation and treatment. After discussion will not give further IVF at this time despite elevated lactic acid as I believe patient's BLE weeping is related to heart failure and I do not wish to exacerbate this. Admission orders placed. Dragon Disclaimer Dragon Disclaimer This electronic medical record was generated, in whole or in part, using a voice recognition dictation system. Departure Departure Impression: Primary Impression: Wound of lower extremity Additional Impressions: Elevated brain natriuretic peptide (BNP) level Elevated lactic acid level Disposition: ADMITTED INPATIENT Admitting Physician: Other Condition: STABLE Referrals: SANTIAGO RAY MD (PCP) Problem Qualifiers GAUTAM MONAHAN MD Dec 17, 2016 20:09
[2016-12-17] MEDS ORDERED: ONDANSETRON PF 4 MG/2 ML VIAL. IV PRN (21:30)
[2016-12-17] MEDS ORDERED: MORPHINE SULFATE 2 MG/ML DISP.SYRIN. IV PRN (21:30)
[2016-12-17] MEDS ORDERED: ACETAMINOPHEN 325 MG TABLET. PO PRN (21:30)
--- NOTE | 2016-12-17 21:57 | EKG ---
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
[2016-12-17 23:00] VITALS: BP 94/51
[2016-12-18] MEDS ORDERED: FUROSEMIDE 40 MG/4 ML VIAL. IVP ONE
[2016-12-18] MEDS: FUROSEMIDE INJ 100 MG in IV NORMAL SALINE 100ML 100 ML IV PRN ×2 (00:21→17:32)
[2016-12-18 03:59] VITALS: BP 112/79
[2016-12-18 05:22] LABS: BASO # 0.1 x10^3/uL (0.0-0.2); BASO % 1 % (0-3); EOS % 1 % (0-3); HEMOGLOBIN 12.5 g/dL (12.0-15.5); LYMPH % 16 % (24-48); MEAN CORPUSCULAR HEMOGLOBIN 29 pg (25-35); MEAN CORPUSCULAR HGB CONC 32 g/dL (31-37); MEAN CORPUSCULAR VOLUME 92 fL (79-100); MONO % 18 % (0-9); NEUT % 64 % (31-73); PLATELET COUNT 156 x10^3/uL (140-400); RED BLOOD COUNT 4.25 x10^6/uL (3.50-5.40); RED CELL DISTRIBUTION WIDTH 18.4 % (11.5-14.5); WHITE BLOOD COUNT 6.5 x10^3/uL (4.0-11.0)
[2016-12-18 05:50] LABS: CALCIUM 9.1 mg/dL (8.5-10.1); CREATININE 1.1 mg/dL (0.6-1.0); GFR 46.9; POTASSIUM 4.1 mmol/L (3.5-5.1)
[2016-12-18 07:00] VITALS: BP 100/74
--- NOTE | 2016-12-18 08:04 | RAD ---
PORTABLE CHEST 1V Clinical Indication: elevated BNP, shortness of breath and weakness. Comparison: December 12, 2016. Technique: Single upright portable AP view of the chest is obtained. Findings: Radiographic appearance of the chest is unchanged when compared to December 12. Blunting of both costophrenic angles is redemonstrated suggesting pleural effusions. Bibasilar opacities are also redemonstrated. No pneumothorax is seen. Mild prominence of the central pulmonary vasculature appears unchanged. Cardiomegaly appears stable. Visualized osseous structures and overlying soft tissues demonstrate no acute interval change. Single-lead left chest pacemaker appears stable in position. IMPRESSION: Stable radiographic appearance of the chest, with bilateral pleural effusions with adjacent compressive atelectasis or infiltrate.
[2016-12-18 11:00] VITALS: BP 103/74
[2016-12-18 11:28] LABS: PLT ESTIMATE ADEQUATE (ADEQUATE)
[2016-12-18] MEDS: CEFAZOLIN SODIUM 1 GM in IV NORMAL SALINE 50ML 50 ML IV SCH ×2 (11:56→20:33)
--- NOTE | 2016-12-18 12:34 | PDOC ---
Infectious Disease Note Vital Sign Vital Signs Vital Signs Date Time Temp Pulse Resp B/P Pulse Ox O2 Delivery O2 Flow Rate FiO2 12/18/16 11:00 97.4 107 18 103/74 Nasal Cannula 3.0 97.4 12/18/16 03:59 100 Labs Lab Laboratory Tests Test 12/17/16 19:08 12/17/16 22:10 12/18/16 00:01 12/18/16 04:00 White Blood Count 8.1x10^3/uL (4.0-11.0) 6.5x10^3/uL (4.0-11.0) Red Blood Count 4.23x10^6/uL (3.50-5.40) 4.25x10^6/uL (3.50-5.40) Hemoglobin 12.5g/dL (12.0-15.5) 12.5g/dL (12.0-15.5) Hematocrit 38.1% (36.0-47.0) 39.0% (36.0-47.0) Mean Corpuscular Volume 90fL (79-100) 92fL (79-100) Mean Corpuscular Hemoglobin 30pg (25-35) 29pg (25-35) Mean Corpuscular Hemoglobin Concent 33g/dL (31-37) 32g/dL (31-37) Red Cell Distribution Width 17.6% (11.5-14.5) 18.4% (11.5-14.5) Platelet Count 203x10^3/uL (140-400) 156x10^3/uL (140-400) Neutrophils (%) (Auto) 66% (31-73) 64% (31-73) Lymphocytes (%) (Auto) 15% (24-48) 16% (24-48) Monocytes (%) (Auto) 17% (0-9) 18% (0-9) Eosinophils (%) (Auto) 1% (0-3) 1% (0-3) Basophils (%) (Auto) 1% (0-3) 1% (0-3) Neutrophils # (Auto) 5.3x10^3uL (1.8-7.7) 4.2x10^3uL (1.8-7.7) Lymphocytes # (Auto) 1.2x10^3/uL (1.0-4.8) 1.0x10^3/uL (1.0-4.8) Monocytes # (Auto) 1.4x10^3/uL (0.0-1.1) 1.2x10^3/uL (0.0-1.1) Eosinophils # (Auto) 0.1x10^3/uL (0.0-0.7) 0.1x10^3/uL (0.0-0.7) Basophils # (Auto) 0.1x10^3/uL (0.0-0.2) 0.1x10^3/uL (0.0-0.2) Sodium Level 140mmol/L (136-145) 142mmol/L (136-145) Potassium Level 4.7mmol/L (3.5-5.1) 4.1mmol/L (3.5-5.1) Chloride Level 96mmol/L (98-107) 98mmol/L (98-107) Carbon Dioxide Level 39mmol/L (21-32) 37mmol/L (21-32) Anion Gap 5 (6-14) 7 (6-14) Blood Urea Nitrogen 48mg/dL (7-20) 45mg/dL (7-20) Creatinine 1.2mg/dL (0.6-1.0) 1.1mg/dL (0.6-1.0) Estimated GFR (Cockcroft-Gault) 42.4 46.9 BUN/Creatinine Ratio 40 (6-20) Glucose Level 93mg/dL (70-99) 94mg/dL (70-99) Lactic Acid Level 2.2mmol/L (0.4-2.0) 2.5mmol/L (0.4-2.0) 2.1mmol/L (0.4-2.0) Calcium Level 9.5mg/dL (8.5-10.1) 9.1mg/dL (8.5-10.1) Total Bilirubin 1.3mg/dL (0.2-1.0) Aspartate Amino Transf (AST/SGOT) 41U/L (15-37) Alanine Aminotransferase (ALT/SGPT) 17U/L (14-59) Alkaline Phosphatase 160U/L (46-116) PW-Cgf-A-Type Natriuretic Peptide 4426pg/mL (0-449) Total Protein 7.0g/dL (6.4-8.2) Albumin 2.9g/dL (3.4-5.0) Albumin/Globulin Ratio 0.7 (1.0-1.7) Segmented Neutrophils % 75% (35-66) Band Neutrophils % 2% (0-9) Lymphocytes % 11% (24-48) Monocytes % 12% (0-10) Platelet Estimate Adequate (ADEQUATE) Objective Assessment Cellulitis of legs, bilaterally - Tinea Left ankle wounds CHF CKD COPD Recent fall h/o MRSA colonization Plan Plan of Care Cefazolin Last dose vanc / Dose micafungin Leg elevation Culture wound Monitor labs Thank you Attending Co-Sign Attending Co-Sign The patient was seen and interviewed as well as examined at the bedside. The chart was reviewed. The case was discussed. Agree with the plan of care. JOSSELIN SANTIAGO APRN Dec 18, 2016 12:34 RIGO LUO MD Dec 18, 2016 13:32
--- NOTE | 2016-12-18 13:48 | CARD ---
APPROVED REPORT EXAM: Two-dimensional and M-mode echocardiogram with Doppler and color Doppler. Other Information Quality : Good INDICATION Pulmonary Hypertention Check Pulmonary Artery Pressure 2D DIMENSIONS RVDd3.8 (2.9-3.5cm)Left Atrium(2D)4.4 (1.6-4.0cm) IVSd1.3 (0.7-1.1cm)Aortic Root(2D)2.9 (2.0-3.7cm) LVDd3.4 (3.9-5.9cm)LVOT Diameter2.3 (1.8-2.4cm) PWd1.5 (0.7-1.1cm)LVDs2.5 (2.5-4.0cm) FS (%) 27.2 %SV25.4 ml LVEF(%)55.0 (>50%) Aortic Valve AoV Peak Apyam.188.8cm/sAoV VTI26.3cm AO Peak GR.14.3mmHgLVOT VTI 8.98cm AO Mean GR.8mmHgAVA (VTI)1.46cm2 Mitral Valve MV E Pvlmphkk575.4cm/sMV DECEL [id number] TDI Lateral E' P. V9.65cm/sE/Lateral E'14.7 Tricuspid Valve TR P. [id number]/sRAP [id number] TR Peak Gr.[id number] LEFT VENTRICLE The left ventricle is normal size. There is mild concentric left ventricular hypertrophy. The left ve ntricular systolic function is normal . The Ejection Fraction is 55-60%. There is a flattened septum consistent with right ventricle volume and pressure overload. There is a grade 3 diastolic dysfunctio n with the E wave deceleration time being 100 ms. RIGHT VENTRICLE The right ventricle is mildly dilated. Systolic function is mildly reduced. ATRIA The left atrium is mildly dilated. The right atrium is severely dilated. The interatrial septum is in tact with no evidence for an atrial septal defect or patent foramen ovale as noted on 2-D or Doppler imaging. AORTIC VALVE The aortic valve is severely thickened. Doppler and Color Flow revealed no significant aortic regurgi tation. Calculated aortic valve area is 1.46 cm2 with maximum pressure gradient of 14 mmHg and mean p ressure gradient of 8 mmHg. MITRAL VALVE The mitral valve is calcified but opens well. There is no evidence of mitral valve prolapse. There is no mitral valve stenosis. Doppler and Color-flow revealed mild mitral regurgitation. TRICUSPID VALVE The tricuspid valve is normal in structure and function. Doppler and Color Flow revealed severe tricu spid regurgitation. There is severe pulmonary hypertension. The PA pressure was estimated at 67 mmHg. There is no tricuspid valve stenosis. PULMONIC VALVE The pulmonary valve is normal in structure and function. Doppler and Color Flow revealed mild pulmoni c valvular regurgitation. There is no pulmonic valvular stenosis. GREAT VESSELS The aortic root is normal in size. The ascending aorta is normal in size. The IVC is dilated and amy apses <50% with inspiration. PERICARDIAL EFFUSION There is moderate left pleural effusion. There is a trace loculated posterior pericardial effusion. Critical Notification Critical Value: No <Conclusion> The left ventricle is jayesh in l size. There is mild concentric left ventricular hypertrophy. The left ventricular systolic function is normal . The Ejection Fraction is 55-60%. There is a flattened septum consistent with right ventricle volume and pressure overload. There is a grade 3 diastolic dysfunction with the E wave deceleration time being 100 ms. There is no significant pericardial effusion. There is no mitral stenosis and a mild mitral regurgitation. The left atrium is enlarged. The aortic valve is tricuspid. The valve leaflets are thickened. There is a mild aortic stenosis and no significant aortic regurgitation. The right ventricle is enlarged. The right atrium is gigantic.. There is severe tricuspid regurgitation. There is severe pulmonary hypertension with a right ventricular systolic pressure of s 72 mmHg. The inferior vena cava is enlarged with minimal inspiratory collapse. There is mild pulmonic regurgitation.
[2016-12-18] MEDS: MICAFUNGIN 100 MG in IV DEXTROSE 5% 100 ML IV SCH (14:50)
[2016-12-18 15:00] VITALS: BP 113/83
[2016-12-18 19:00] VITALS: BP 105/68
[2016-12-18] MEDS ORDERED: VANCOMYCIN 1 GM in IV NORMAL SALINE 250ML 250 ML IV SCH (20:00)
[2016-12-18 23:00] VITALS: BP 99/73
[2016-12-19 03:00] VITALS: BP 115/70
--- NOTE | 2016-12-19 06:06 | PDOC ---
Provider Note Provider Note [id number] acute on chronic resp fail abnl cxr asthma chf see my orders. FITZ CALIX MD Dec 19, 2016 06:06
--- NOTE | 2016-12-19 06:40 | CONS ---
DATE OF CONSULTATION: 12/19/2016 I was asked to see this 86-year-old lady for acute on chronic respiratory failure, shortness of breath, cough, pleural effusion. HISTORY OF PRESENT ILLNESS: She is a lifelong nonsmoker. She has had recurrent pleural effusion which has been transudate. She did have PleurX placed on 12/01/2016. Per nurse, her son stated that he does evacuate PleurX every 4 days, last time was on 12/17/2016. The patient has shortness of breath. She was admitted with leg pain and increased lower extremity edema and she is getting treatment for cellulitis. ID is on the case. She has cough. She has slight pain in her legs. PAST MEDICAL HISTORY: Asthma, recurrent pleural effusion, CHF, anxiety, arthritis, hypertension, MRSA, UTI, breast cancer, scoliosis, history of DVT, history of Pleurex catheter placement. ALLERGIES: No known drug allergies. MEDICATIONS: Currently she is on microfungin, cefazolin, Lasix. SOCIAL HISTORY: The patient is a lifelong nonsmoker. FAMILY HISTORY: Positive for hypertension. REVIEW OF SYSTEMS: As mentioned as above. I have discussed the patient with RN, other systems otherwise negative. PHYSICAL EXAMINATION: GENERAL: This is an overweight lady. VITAL SIGNS: Her O2 saturation is 93% on 3 liters, respiratory rate 18, heart rate 115, blood pressure 115/70, temperature 96.6. HEENT: Normocephalic, atraumatic. Pupils equal, round, reactive to light. Throat is clear. Nose: There is inflamed mucosa. NECK: Positive JVD. No lymphadenopathy. CARDIOVASCULAR: Irregular rhythm. CHEST: Inspection is normal. LUNGS: There are bibasilar crackles, dullness at the bases. ABDOMEN: Soft. Bowel sounds are good. There is no mass. EXTREMITIES: There is lower extremity redness and edema. LYMPHATICS: There is no lymphadenopathy. NEUROLOGIC: She is alert. SKIN: Chronic changes. LABORATORY DATA: I reviewed the following lab data: Chest x-ray shows bilateral effusion, small effusion/atelectasis/infiltrate. WBC 6.5, hemoglobin 12.5, platelets 156. Sodium 142, potassium 4.1, chloride 98, CO2 of 37, glucose 94, BUN 45, creatinine 1.1. IMPRESSION: 1. Acute on chronic respiratory failure, multifactorial in etiology. 2. Abnormal chest x-ray. 3. Infiltrates/effusion/atelectasis. 4. Status post right PleurX catheter placement. 5. Asthma. 6. Questionable chronic obstructive pulmonary disease. 7. Atrial fibrillation. 8. Lower extremity cellulitis. 9. History of breast cancer. 10. Hypertension. PLAN AND RECOMMENDATIONS: 1. Titrate FiO2 to keep O2 saturation 92%. 2. Continue Lasix, keep intake less than output, monitor potassium and creatinine. 3. I will do a chest x-ray in the morning and decide if she needs drainage from her PleurX catheter. 4. Start bronchodilator, Atrovent only. 5. Protonix for stress ulcer prophylaxis. 6. Lovenox for deep vein thrombosis prophylaxis. 7. Check lower extremity venous Doppler. 8. Continue antibiotic per ID. 9. The findings and recommendations were discussed with the patient and RN. 10. Inhaled corticosteroid. Thank you very much for allowing me to participate in care of this very nice lady. FITZ CALIX M.D. DR: KIRTI/jacques JOB#: [id number] / [id number] DAV
[2016-12-19 07:00] VITALS: BP 117/85
[2016-12-19] MEDS: IPRATROPIUM BROMIDE 0.5 MG/2.5 ML NEBU. NEB SCH ×4 (07:42→19:46)
[2016-12-19] MEDS: BUDESONIDE 0.5 MG/2 ML NEBU. NEB SCH ×2 (07:42→19:46)
[2016-12-19] MEDS ORDERED: OXYC1TAB7 PO (08:09)
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
[2016-12-19] MEDS: CEFAZOLIN SODIUM 1 GM in IV NORMAL SALINE 50ML 50 ML IV SCH ×2 (09:18→20:04)
[2016-12-19 09:44] LABS: CALCIUM 8.3 mg/dL (8.5-10.1); CREATININE 1.1 mg/dL (0.6-1.0); GFR 46.9; POTASSIUM 3.1 mmol/L (3.5-5.1)
[2016-12-19] MEDS ORDERED: POTASSIUM CHLORIDE 20 MEQ TABLET.ER. PO ONE ×3 (10:30→19:30)
[2016-12-19 11:00] VITALS: BP 131/90
[2016-12-19] MEDS: METOPROLOL SUCC 24HR ER 25 MG TAB.ER.24H. PO SCH (11:04)
[2016-12-19] MEDS: OXYCODONE/APAP 5/325 TABLET. PO PRN ×2 (11:05→20:03)
--- NOTE | 2016-12-19 11:25 | PDOC ---
Infectious Disease Note Subjective Subjective Doing ok ROS ROS GEN: Denies fevers, chills, sweats HEENT: Denies blurred vision, sore throat CV: Denies chest pain RESP: Denies shortness of air, cough GI: Denies n/v/d NEURO: Denies confusion, dizziness MSK: Denies weakness, joint pain/swelling ? Reliablility Vital Sign Vital Signs Vital Signs Date Time Temp Pulse Resp B/P Pulse Ox O2 Delivery O2 Flow Rate FiO2 12/19/16 11:05 20 97 Nasal Cannula 3.0 12/19/16 11:04 119 131/90 12/19/16 07:00 97.6 97.6 Physical Exam PHYSICAL EXAM GENERAL: NAD, Alert HEENT: PERRL, OC/OP -dry. Scalp wound with scab NECK: Supple, no JVD, no LN LUNGS: Clear HEART: S1S2, no gallop, no murmur ABD: Soft, NT, no organomegaly, no rebound EXT: Improved/erythema edema, no cyanosis ASSISTANT [employer]ENDER: Alert, oriented x 3, no focal neurologic deficit SKIN: No rash IV: ok Labs Lab Laboratory Tests Test 12/19/16 08:45 Sodium Level 143mmol/L (136-145) Potassium Level 3.1mmol/L (3.5-5.1) Chloride Level 101mmol/L (98-107) Carbon Dioxide Level 31mmol/L (21-32) Anion Gap 11 (6-14) Blood Urea Nitrogen 33mg/dL (7-20) Creatinine 1.1mg/dL (0.6-1.0) Estimated GFR (Cockcroft-Gault) 46.9 Glucose Level 154mg/dL (70-99) Calcium Level 8.3mg/dL (8.5-10.1) Magnesium Level 2.5mg/dL (1.8-2.4) Objective Assessment Cellulitis of legs, bilaterally - Tinea - better today Left ankle wounds CHF CKD COPD Recent fall h/o MRSA colonization Plan Plan of Care Cefazolin Dose micafungin Leg elevation Culture wound Monitor labs RIGO LUO MD Dec 19, 2016 11:25
[2016-12-19] MEDS: MICAFUNGIN 100 MG in IV DEXTROSE 5% 100 ML IV SCH (13:00)
--- NOTE | 2016-12-19 14:15 | RAD ---
Ultrasound bilateral lower extremity Indication: Bilateral lower extremity edema. Technique: Multiple real-time grayscale images were obtained over the bilateral lower extremities with use of color Doppler imaging and spectral analysis. Static images were submitted for interpretation. Findings: There is no evidence for deep venous thrombosis. There is normal color fill-in on Doppler images. There is also normal response to compression and augmentation of the deep venous system. Impression: No evidence for deep venous thrombosis.
[2016-12-19 15:00] VITALS: BP 95/74
--- NOTE | 2016-12-19 16:00 | PDOC ---
PROGRESS NOTES Subjective Subjective COVERING FOR DR RAY Patient feels a little better today. No new complaints. Objective Objective Vital Signs Date Time Temp Pulse Resp B/P Pulse Ox O2 Delivery O2 Flow Rate FiO2 12/19/16 15:58 98 Nasal Cannula 3.0 12/19/16 12:05 20 12/19/16 11:04 119 131/90 12/19/16 11:00 97.5 97.5 Intake and Output 12/19/16 07:00 Intake Total 1030 ml Output Total 700 ml Balance 330 ml Intake Oral 980 ml IV Total 50 ml Output Urine Total 700 ml # Voids 7 Physical Exam Physical Exam No significant changes in cardiac exam Assessment Assessment Patient progressing very slowly. I agree with present plan. Dr. Ray will return tomorrow. Problems Medical Problems: (1) Elevated brain natriuretic peptide (BNP) level Status: Acute (2) Elevated lactic acid level Status: Acute (3) Wound of lower extremity Status: Acute Comment Review of Relevant I have reviewed the following items jocelin (where applicable) has been applied. Labs Laboratory Tests Test 12/17/16 19:08 12/17/16 22:10 12/18/16 00:01 12/18/16 04:00 White Blood Count 8.1x10^3/uL (4.0-11.0) 6.5x10^3/uL (4.0-11.0) Red Blood Count 4.23x10^6/uL (3.50-5.40) 4.25x10^6/uL (3.50-5.40) Hemoglobin 12.5g/dL (12.0-15.5) 12.5g/dL (12.0-15.5) Hematocrit 38.1% (36.0-47.0) 39.0% (36.0-47.0) Mean Corpuscular Volume 90fL (79-100) 92fL (79-100) Mean Corpuscular Hemoglobin 30pg (25-35) 29pg (25-35) Mean Corpuscular Hemoglobin Concent 33g/dL (31-37) 32g/dL (31-37) Red Cell Distribution Width 17.6% (11.5-14.5) 18.4% (11.5-14.5) Platelet Count 203x10^3/uL (140-400) 156x10^3/uL (140-400) Neutrophils (%) (Auto) 66% (31-73) 64% (31-73) Lymphocytes (%) (Auto) 15% (24-48) 16% (24-48) Monocytes (%) (Auto) 17% (0-9) 18% (0-9) Eosinophils (%) (Auto) 1% (0-3) 1% (0-3) Basophils (%) (Auto) 1% (0-3) 1% (0-3) Neutrophils # (Auto) 5.3x10^3uL (1.8-7.7) 4.2x10^3uL (1.8-7.7) Lymphocytes # (Auto) 1.2x10^3/uL (1.0-4.8) 1.0x10^3/uL (1.0-4.8) Monocytes # (Auto) 1.4x10^3/uL (0.0-1.1) 1.2x10^3/uL (0.0-1.1) Eosinophils # (Auto) 0.1x10^3/uL (0.0-0.7) 0.1x10^3/uL (0.0-0.7) Basophils # (Auto) 0.1x10^3/uL (0.0-0.2) 0.1x10^3/uL (0.0-0.2) Sodium Level 140mmol/L (136-145) 142mmol/L (136-145) Potassium Level 4.7mmol/L (3.5-5.1) 4.1mmol/L (3.5-5.1) Chloride Level 96mmol/L (98-107) 98mmol/L (98-107) Carbon Dioxide Level 39mmol/L (21-32) 37mmol/L (21-32) Anion Gap 5 (6-14) 7 (6-14) Blood Urea Nitrogen 48mg/dL (7-20) 45mg/dL (7-20) Creatinine 1.2mg/dL (0.6-1.0) 1.1mg/dL (0.6-1.0) Estimated GFR (Cockcroft-Gault) 42.4 46.9 BUN/Creatinine Ratio 40 (6-20) Glucose Level 93mg/dL (70-99) 94mg/dL (70-99) Lactic Acid Level 2.2mmol/L (0.4-2.0) 2.5mmol/L (0.4-2.0) 2.1mmol/L (0.4-2.0) Calcium Level 9.5mg/dL (8.5-10.1) 9.1mg/dL (8.5-10.1) Total Bilirubin 1.3mg/dL (0.2-1.0) Aspartate Amino Transf (AST/SGOT) 41U/L (15-37) Alanine Aminotransferase (ALT/SGPT) 17U/L (14-59) Alkaline Phosphatase 160U/L (46-116) KR-Oyd-I-Type Natriuretic Peptide 4426pg/mL (0-449) Total Protein 7.0g/dL (6.4-8.2) Albumin 2.9g/dL (3.4-5.0) Albumin/Globulin Ratio 0.7 (1.0-1.7) Segmented Neutrophils % 75% (35-66) Band Neutrophils % 2% (0-9) Lymphocytes % 11% (24-48) Monocytes % 12% (0-10) Platelet Estimate Adequate (ADEQUATE) Test 12/18/16 09:32 12/19/16 08:45 Nasal Screen MRSA (PCR) Negative (Negative) Sodium Level 143mmol/L (136-145) Potassium Level 3.1mmol/L (3.5-5.1) Chloride Level 101mmol/L (98-107) Carbon Dioxide Level 31mmol/L (21-32) Anion Gap 11 (6-14) Blood Urea Nitrogen 33mg/dL (7-20) Creatinine 1.1mg/dL (0.6-1.0) Estimated GFR (Cockcroft-Gault) 46.9 Glucose Level 154mg/dL (70-99) Calcium Level 8.3mg/dL (8.5-10.1) Magnesium Level 2.5mg/dL (1.8-2.4) Laboratory Tests Test 12/19/16 08:45 Sodium Level 143mmol/L (136-145) Potassium Level 3.1mmol/L (3.5-5.1) Chloride Level 101mmol/L (98-107) Carbon Dioxide Level 31mmol/L (21-32) Anion Gap 11 (6-14) Blood Urea Nitrogen 33mg/dL (7-20) Creatinine 1.1mg/dL (0.6-1.0) Estimated GFR (Cockcroft-Gault) 46.9 Glucose Level 154mg/dL (70-99) Calcium Level 8.3mg/dL (8.5-10.1) Magnesium Level 2.5mg/dL (1.8-2.4) Microbiology 12/17/16 Blood Culture - Preliminary, Resulted NO GROWTH AFTER 1 DAY Medications Current Medications Vancomycin HCl 1 each 1 each PRN DAILY PRN PHARMACY TO DOSE Last administered on 12/18/16 02:18; Start 12/17/16 at 19:30; Stop 12/18/16 at 11:03 ; Status DC Sodium Chloride 250 ml @ 250 mls/hr 1X ONCE IV Last administered on 19:30; Start 12/17/16 at 19:30; Stop 12/17/16 at 20:29; Status DC Vancomycin HCl/ Sodium Chloride (Iv Sodium Chloride 0.9% 500ml Bag) 500 ml @ 250 mls/hr 1X ONCE IV Last administered on 12/17/16 19:40; Start 12/17/16 at 19:45; Stop 12/17/16 at 21:44; Status DC Ondansetron HCl (Zofran) 4 mg PRN Q8HRS PRN IV NAUSEA/VOMITING; Start 12/17/16 at 21:30; Stop 12/18/16 at 21:29; Status DC Morphine Sulfate 2 mg PRN Q2HR PRN IV SEVERE PAIN Last administered on 20:33; Start 12/17/16 at 21:30; Stop 12/18/16 at 21:29; Status DC Acetaminophen 650 mg 650 mg PRN Q4HRS PRN PO FEVER; Start 12/17/16 at 21:30; Stop 12/18/16 at 21:29; Status DC Cefazolin Sodium/ Dextrose (Ancef 2gm Premix) 50 ml @ 500 mls/hr Q6WKS IV ; Start 01/28/17 at 09:00; Stop 01/28/17 at 09:00; Status DC Furosemide 40 mg 40 mg 1X ONCE IVP Last administered on 12/18/16 00:22; Start 12/18/16 at 00:00; Stop 12/18/16 at 00:01; Status DC Furosemide 100 mg/ Sodium Chloride 100 ml @ 5 mls/hr CONT PRN IV SEE I/O RECORD Last administered on 12/18/16 17:32; Start 12/17/16 at 23:45 Vancomycin HCl/ Sodium Chloride (Iv Sodium Chloride 0.9% 250ml) 250 ml @ 250 mls/hr Q24H IV ; Start 12/18/16 at 20:00; Status Cancel Vancomycin HCl 1 each 1 each 1X ONCE MC ; Start 12/19/16 at 19:30; Stop at 19:31; Status Cancel Cefazolin Sodium 1 gm/Sodium Chloride 50 ml @ 100 mls/hr Q12HR IV Last administered on 12/19/16 09:18; Start 12/18/16 at 12:00 Micafungin Sodium/ Dextrose (Mycamine) 100 ml @ 100 mls/hr Q24H IV Last administered on 12/19/16 13:00; Start 12/18/16 at 14:00 Ipratropium Solen (Atrovent) 0.5 mg RTQID NEB Last administered on 12/19/16 15:56; Start 12/19/16 at 08:00 Budesonide (Pulmicort) 0.5 mg RTBID NEB Last administered on 12/19/16 07:42; Start 12/19/16 at 08:00 Potassium Chloride (Klor-Con) 20 meq 1X ONCE PO Last administered on 11:03; Start 12/19/16 at 10:30; Stop 12/19/16 at 10:31; Status DC Potassium Chloride (Klor-Con) 20 meq 1X ONCE PO Last administered on 12:46; Start 12/19/16 at 13:00; Stop 12/19/16 at 13:01; Status DC Oxycodone/ Acetaminophen (Percocet 5/325) 0.5 tab PRN Q6HRS PRN PO PAIN Last administered on 12/19/16 11:05; Start 12/19/16 at 10:30 Metoprolol Succinate (Toprol Xl) 25 mg DAILY PO Last administered on 4/16/17at 11:04; Start 12/19/16 at 11:00 Active Scripts Active Feosol (Ferrous Sulfate) 325 Mg Tablet 325 Mg PO DAILY Reported Oxycodone-Acetaminophen 5-325 (Oxycodone Hcl/Acetaminophen) 1 Each Tablet 0.5 Tab PO PRN Q6HRS PRN Trusopt (Dorzolamide Hcl) 10 Ml Drops 10 Ml OU DAILY Cetirizine Hcl 10 Mg Tablet 1 Tab PO DAILY Ocuvite Tablet (Vit A,C & E/Lutein/Minerals) 1 Each Tablet 1 Cap PO DAILY Xalatan (Latanoprost) 2.5 Ml Drops 1 Drop EACHEYE QHS Tums (Calcium Carbonate) 300 Mg Tab.chew 500 Mg PO DAILY Budesonide 0.5 Mg/2 Ml Ampul.neb 1 Vial NEB BID Calcium 600 + Vit D 200 Tablet (Calcium Carbonate/Vitamin D3) 1 Each Tablet 1 Each PO DAILY Azopt (Brinzolamide) 10 Ml Drops.susp 1 Drop EACHEYE DAILY Lutein-Zeaxanthin 25-5 Mg Sfgl (Lutein/Zeaxanthin) 1 Each Capsule 1 Each PO DAILY Lasix (Furosemide) 80 Mg Tablet 1 Tab PO BID Aspirin 325 Mg Tablet 1 Tab PO DAILY Toprol Xl (Metoprolol Succinate) 25 Mg Tab.er.24h 1.5 Tab PO DAILY Magnesium Oxide 400 Mg Tablet 500 Mg PO DAILY Albuterol Sulfate Neb Soln (Albuterol Sulfate) 2.5 Mg/3 Ml Vial.neb 1 Vial NEB QID Tums (Calcium Carbonate) 200 Mg Tab.chew 200 Mg PO PRN Q2HRS PRN Travatan Z (Travoprost) 5 Ml Drops 1 Drop EACHEYE QHS Vitals/I & O Vital Sign - Last 24 Hours 12/18/16 12/18/16 12/18/16 12/18/16 19:00 20:00 20:33 21:03 Temp 97.9 97.9 Pulse 103 Resp 18 B/P 105/68 Pulse Ox 100 100 O2 Delivery Nasal Cannula Nasal Cannula Nasal Cannula Nasal Cannula O2 Flow Rate 3.0 3.0 3.0 3.0 12/18/16 12/19/16 12/19/16 12/19/16 23:00 03:00 07:00 07:43 Temp 97.8 96.6 97.6 97.8 96.6 97.6 Pulse 115 125 120 Resp 18 18 18 B/P 99/73 115/70 117/85 Pulse Ox 97 O2 Delivery Nasal Cannula Nasal Cannula Nasal Cannula Nasal Cannula O2 Flow Rate 3.0 3.0 3.0 3.0 12/19/16 12/19/16 12/19/16 12/19/16 08:00 11:00 11:04 11:05 Temp 97.5 97.5 Pulse 119 119 Resp 20 20 B/P 131/90 131/90 Pulse Ox 97 O2 Delivery Nasal Cannula Nasal Cannula Nasal Cannula O2 Flow Rate 3.0 3.0 3.0 12/19/16 12/19/16 12/19/16 12:05 12:19 15:58 Resp 20 Pulse Ox 97 97 98 O2 Delivery Nasal Cannula Nasal Cannula Nasal Cannula O2 Flow Rate 3.0 3.0 3.0 Intake and Output 12/18/16 12/18/16 12/19/16 15:00 23:00 07:00 Intake Total 460 ml 520 ml 50 ml Output Total 250 ml 450 ml Balance 210 ml 520 ml -400 ml HI LIMON MD Dec 19, 2016 16:00
[2016-12-19] MEDS: FUROSEMIDE INJ 100 MG in IV NORMAL SALINE 100ML 100 ML IV PRN (16:12)
[2016-12-19 19:00] VITALS: BP 117/84
--- NOTE | 2016-12-19 22:46 | HP ---
ADMIT DATE: 12/18/2016 HISTORY OF PRESENT ILLNESS: This is an 86-year-old white female who was brought into the Emergency Room of [facility] on 12/17/2016. I saw her in the Emergency Room. This is one of multiple hospitalizations for this lady. She has chronic congestive heart failure which is a diastolic heart failure. She also has pulmonary hypertension. She has had recurrent pleural effusions. She has been on high dose of Lasix. After recurrent thoracentesis, she had a PleurX catheter placed. She had been having pleural effusion drained at first every 4 days. It then became every 3 days. The drainage amount has been about 800 mL every time though the first time was 1050 mL. The son requested that it be drained every other day, but we have not come up to that point. She is chronically short of breath and tachypneic. This time she came in because the visiting nurses called me saying that she has erythema in both legs. Both legs are swollen and with clear fluid being drained. There were also nonhealing ulcers. Because she had been hospitalized in 07/2016 with bacteremia with Streptococcus G, I had requested that she come in to the hospital. I am told that the Streptococcus G does not usually cause endocarditis though I was concerned that any bacteremia might cause endocarditis. If it is any other bacteremia, then it could cause it. She has mitral regurgitation and thus the valves are amenable to endocarditis. She has mild aortic stenosis and thickening of the aortic valve and a possibility of aortic valve endocarditis or even tricuspid valve endocarditis. She came into the Emergency Room. In the Emergency Room, she was afebrile. She did not have a leukocytosis and the WBC count was 8000. She was tachycardic, but she is in atrial fibrillation and that by self cannot be taken as a token of sepsis; however, her lactic acid was elevated to 2.2. With this finding, she was hospitalized. She lives at home with her son attending to her. She is able to get up . Sometimes she is incontinent. She has to use oxygen all the time. PAST MEDICAL HISTORY: She has had persistent atrial fibrillation. She had been on anticoagulation at one point, but had significant bleeding and so this was stopped. She has had cancer of the breast. She has had a nonhealing wound on the left ankle that took a very long time to heal. She complains of pain. The pain is in the legs. After trying various medications, we have settled down to Percocet 5/325 and I had prescribed quarter of a tablet. The son, however, has been giving half a tablet, which seems to be holding her. At home, she is on albuterol inhalers, Lasix at a dosage of 80 mg twice a day, potassium at a dosage of 20 mEq twice a day and that is keeping her potassium at a normal level. She is also on metoprolol XL 37.5 mg once a day that is keeping her ventricular response to the atrial fibrillation under control without dropping her blood pressure . She runs a low blood pressure of 90 mmHg. She also has osteoarthritis. PHYSICAL EXAMINATION: GENERAL: She was able to lie flat, but she was tachypneic. She stated that she is somewhat short of breath. VITAL SIGNS: She was in atrial fibrillation with a heart rate of 100 beats per minute. The blood pressure is 90/70. LUNGS: Showed decreased breath sounds in the bases. HEART: The heart sounds are normal. There is a grade 1/6 systolic murmur at the base. There is no diastolic murmur heard. ABDOMEN: Soft. EXTREMITIES: There is edema of the legs and thighs. Both legs below the knees were erythematous. There was fluid weeping in some areas. There was a healed ulcer on the left ankle. There were no other ulcers. IMPRESSION: 1. Chronic diastolic congestive heart failure. 2. Recurrent pleural effusion with rapid reaccumulation. 3. Severe right heart failure with consequential edema of the legs and cellulitis, and weeping of serosanguineous fluid. 4. Severe tachypnea. SANTIAGO RAY MD DR: MICKI/jacques JOB#: [id number] / [id number]
[2016-12-19 23:00] VITALS: BP 103/74
[2016-12-20 03:00] VITALS: BP 100/67
[2016-12-20 07:25] VITALS: BP 127/97
[2016-12-20] MEDS: BUDESONIDE 0.5 MG/2 ML NEBU. NEB SCH ×2 (07:59→21:02)
[2016-12-20] MEDS: IPRATROPIUM BROMIDE 0.5 MG/2.5 ML NEBU. NEB SCH ×4 (07:59→21:02)
[2016-12-20 08:35] LABS: CALCIUM 8.5 mg/dL (8.5-10.1); CREATININE 1.1 mg/dL (0.6-1.0); GFR 46.9; POTASSIUM 3.9 mmol/L (3.5-5.1)
--- NOTE | 2016-12-20 08:53 | RAD ---
Indication pleural fluid. Shortness of air. A single view of the chest was obtained. Comparison is made to a study 3 days earlier. Heart size is unchanged. Pulmonary vasculature is similar. Bilateral pleural effusions persist right greater than left with some associated volume loss. The right pleural effusion appears somewhat larger than on the previous exam. A catheter is noted overlying the right hemithorax similar to the previous exam. Unipolar cardiac pacing device noted. IMPRESSION: Increasing right pleural fluid. Left pleural effusion similar to the previous exam
--- NOTE | 2016-12-20 09:24 | PDOC ---
Infectious Disease Note Subjective Subjective Doing ok. Legs are better ROS ROS GEN: Denies fevers, chills, sweats HEENT: Denies blurred vision, sore throat CV: Denies chest pain RESP: Denies shortness of air, cough GI: Denies n/v/d NEURO: Denies confusion, dizziness MSK: Denies weakness, joint pain/swelling Vital Sign Vital Signs Vital Signs Date Time Temp Pulse Resp B/P Pulse Ox O2 Delivery O2 Flow Rate FiO2 12/20/16 08:00 92 Nasal Cannula 3.0 12/20/16 03:00 97.9 94 18 100/67 97.9 Physical Exam PHYSICAL EXAM GENERAL: NAD, Alert, SOA with too much conversation HEENT: PERRL, OC/OP -dry NECK: Supple, no JVD, no LN LUNGS: Decreased in bases HEART: S1S2, no gallop, no murmur ABD: Soft, NT, no organomegaly, no rebound EXT: Improved edema/erythema/pain, no cyanosis [employer] HIGH[employer]: Alert, oriented, no focal neurologic deficit SKIN: No rash IV: ok Labs Lab Laboratory Tests Test 12/20/16 08:06 Sodium Level 143mmol/L (136-145) Potassium Level 3.9mmol/L (3.5-5.1) Chloride Level 101mmol/L (98-107) Carbon Dioxide Level 31mmol/L (21-32) Anion Gap 11 (6-14) Blood Urea Nitrogen 31mg/dL (7-20) Creatinine 1.1mg/dL (0.6-1.0) Estimated GFR (Cockcroft-Gault) 46.9 Glucose Level 173mg/dL (70-99) Lactic Acid Level 3.4mmol/L (0.4-2.0) Calcium Level 8.5mg/dL (8.5-10.1) Objective Assessment Cellulitis of legs, bilaterally - Tinea - better today Left ankle wounds CHF with large right pleural effusion. CXR reviewed CKD COPD Recent fall h/o MRSA colonization Plan Plan of Care Cefazolin Dose micafungin Leg elevation ? Need Thoracentesis Culture wound Monitor labs RIGO LUO MD Dec 20, 2016 09:24
[2016-12-20] MEDS: SPIRONOLACTONE 25 MG TABLET PO SCH (09:45)
[2016-12-20] MEDS: POTASSIUM CHLORIDE 20 MEQ TABLET.ER. PO SCH (09:45)
[2016-12-20] MEDS: CEFAZOLIN SODIUM 1 GM in IV NORMAL SALINE 50ML 50 ML IV SCH ×2 (09:46→21:49)
[2016-12-20] MEDS: METOPROLOL SUCC 24HR ER 25 MG TAB.ER.24H. PO SCH (09:46)
[2016-12-20 11:02] VITALS: BP 107/67
[2016-12-20] MEDS ORDERED: ONDANSETRON PF 4 MG/2 ML VIAL. IV PRN (12:15)
[2016-12-20 15:03] VITALS: BP_SYST 107; BP_SYST 111; BP_SYST 128; BP_DIAS 75; BP_DIAS 82; BP_DIAS 85
[2016-12-20] MEDS: MICAFUNGIN 100 MG in IV DEXTROSE 5% 100 ML IV SCH (15:42)
[2016-12-20] MEDS: FUROSEMIDE INJ 100 MG in IV NORMAL SALINE 100ML 100 ML IV PRN (17:14)
--- NOTE | 2016-12-20 18:09 | PDOC ---
Provider Note Provider Note She complained of significant shortness of breath and feeling terrible this morning. 1200 mL of pleural effusion was drained from the PleurX. She felt much better thereafter. There is significant decrease in swelling of the legs with the Lasix drip. Despite the Lasix drip of 120 mg in 24 hours the BUN/creatinine are better. There is also no evidence of orthostatic hypotension. Edema of the thighs are better. She is tolerating the 25 mg of Toprol-XL well. The blood heart rate continues to be elevated. Thus increased the dose of the Toprol-XL. I had a meeting with her son and daughter in the office today. Visiting nurses had talked to them about hospice and the patient says she definitely does not want to be on hospice. They do not want to be on palliative care either because they see this as a path to hospice and she is not ready for hospice . Continue the Lasix IV. Could consider LTAC Otherwise the family states that she's been doing fairly well at home. Sleeps in a recliner chair. She is alone a few hours at a time and is able to get up and go to the restroom and able to go to the kitchen if necessary by herself. SANTIAGO RAY MD Dec 20, 2016 18:09
--- NOTE | 2016-12-20 18:33 | PDOC ---
PULMONARY PROGRESS NOTES Subjective pt with no increase soa Vitals Vital Signs Date Time Temp Pulse Resp B/P Pulse Ox O2 Delivery O2 Flow Rate FiO2 12/20/16 15:03 120 128/85 12/20/16 15:03 96.4 20 92 Nasal Cannula 3.0 96.4 General: Alert HEENT: Other Lungs: Clear Cardiovascular: S1, S2 Abdomen: Soft, Non-tender Neuro Exam: Alert Extremities: No Edema Skin: Warm Labs Laboratory Tests Test 12/19/16 08:45 12/20/16 08:06 Sodium Level 143mmol/L (136-145) 143mmol/L (136-145) Potassium Level 3.1mmol/L (3.5-5.1) 3.9mmol/L (3.5-5.1) Chloride Level 101mmol/L (98-107) 101mmol/L (98-107) Carbon Dioxide Level 31mmol/L (21-32) 31mmol/L (21-32) Anion Gap 11 (6-14) 11 (6-14) Blood Urea Nitrogen 33mg/dL (7-20) 31mg/dL (7-20) Creatinine 1.1mg/dL (0.6-1.0) 1.1mg/dL (0.6-1.0) Estimated GFR (Cockcroft-Gault) 46.9 46.9 Glucose Level 154mg/dL (70-99) 173mg/dL (70-99) Calcium Level 8.3mg/dL (8.5-10.1) 8.5mg/dL (8.5-10.1) Magnesium Level 2.5mg/dL (1.8-2.4) Lactic Acid Level 3.4mmol/L (0.4-2.0) Laboratory Tests Test 12/20/16 08:06 Sodium Level 143mmol/L (136-145) Potassium Level 3.9mmol/L (3.5-5.1) Chloride Level 101mmol/L (98-107) Carbon Dioxide Level 31mmol/L (21-32) Anion Gap 11 (6-14) Blood Urea Nitrogen 31mg/dL (7-20) Creatinine 1.1mg/dL (0.6-1.0) Estimated GFR (Cockcroft-Gault) 46.9 Glucose Level 173mg/dL (70-99) Lactic Acid Level 3.4mmol/L (0.4-2.0) Calcium Level 8.5mg/dL (8.5-10.1) Medications Active Scripts Medications Dose Route/Sig Days Date Category Oxycodone-Acetaminophen 5-325 (Oxycodone Hcl/Acetaminophen) 1 Each Tablet 0.5 Tab PO PRN Q6HRS PRN 12/19/16 Reported Trusopt (Dorzolamide Hcl) 10 Ml Drops 10 Ml OU DAILY 12/01/16 Reported Cetirizine Hcl 10 Mg Tablet 1 Tab PO DAILY 12/01/16 Reported Ocuvite Tablet (Vit A,C & E/Lutein/Minerals) 1 Each Tablet 1 Cap PO DAILY 12/01/16 Reported Xalatan (Latanoprost) 2.5 Ml Drops 1 Drop EACHEYE QHS 12/01/16 Reported Tums (Calcium Carbonate) 300 Mg Tab.chew 500 Mg PO DAILY 12/01/16 Reported Budesonide 0.5 Mg/2 Ml Ampul.neb 1 Vial NEB BID 12/01/16 Reported Calcium 600 + Vit D 200 Tablet (Calcium Carbonate/Vitamin D3) 1 Each Tablet 1 Each PO DAILY 11/02/16 Reported Azopt (Brinzolamide) 10 Ml Drops.susp 1 Drop EACHEYE DAILY 11/02/16 Reported Lutein-Zeaxanthin 25-5 Mg Sfgl (Lutein/Zeaxanthin) 1 Each Capsule 1 Each PO DAILY 11/02/16 Reported Lasix (Furosemide) 80 Mg Tablet 1 Tab PO BID 11/02/16 Reported Aspirin 325 Mg Tablet 1 Tab PO DAILY 07/19/16 Reported Toprol Xl (Metoprolol Succinate) 25 Mg Tab.er.24h 1.5 Tab PO DAILY 07/19/16 Reported Magnesium Oxide 400 Mg Tablet 500 Mg PO DAILY 07/19/16 Reported Albuterol Sulfate Neb Soln (Albuterol Sulfate) 2.5 Mg/3 Ml Vial.neb 1 Vial NEB QID 11/30/15 Reported Feosol (Ferrous Sulfate) 325 Mg Tablet 325 Mg PO DAILY 08/30/15 Rx Tums (Calcium Carbonate) 200 Mg Tab.chew 200 Mg PO PRN Q2HRS PRN 12/27/14 Reported Travatan Z (Travoprost) 5 Ml Drops 1 Drop EACHEYE QHS 08/12/14 Reported Impression . IMPRESSION: 1. Acute on chronic respiratory failure, multifactorial in etiology. 2. Abnormal chest x-ray. 3. Infiltrates/effusion/atelectasis. 4. Status post right PleurX catheter placement. 5. Asthma. 6. Questionable chronic obstructive pulmonary disease. 7. Atrial fibrillation. 8. Lower extremity cellulitis. 9. History of breast cancer. 10. Hypertension. Plan . Removed 1200 cc today pt less soa will continue the same for now monitor cxr RADHA PUENTES MD Dec 20, 2016 18:32
[2016-12-20 19:00] VITALS: BP 92/66
[2016-12-20 23:00] VITALS: BP 102/70
[2016-12-21] VITALS (8 sets, daily range): BP systolic 88–111; BP diastolic 66–78
[2016-12-21] MEDS: BUDESONIDE 0.5 MG/2 ML NEBU. NEB SCH ×2 (07:08→20:31)
[2016-12-21] MEDS: IPRATROPIUM BROMIDE 0.5 MG/2.5 ML NEBU. NEB SCH ×4 (07:08→20:32)
[2016-12-21] MEDS: POTASSIUM CHLORIDE 20 MEQ TABLET.ER. PO SCH (07:50)
[2016-12-21] MEDS: METOPROLOL SUCC 24HR ER 25 MG TAB.ER.24H. PO SCH (07:50)
[2016-12-21] MEDS: SPIRONOLACTONE 25 MG TABLET PO SCH (07:50)
[2016-12-21] MEDS: CEFAZOLIN SODIUM 1 GM in IV NORMAL SALINE 50ML 50 ML IV SCH ×2 (07:52→21:08)
[2016-12-21] MEDS: OXYCODONE/APAP 5/325 TABLET. PO PRN (08:06)
--- NOTE | 2016-12-21 09:22 | PDOC ---
PULMONARY PROGRESS NOTES Subjective pt with no increase soa Vitals Vital Signs Date Time Temp Pulse Resp B/P Pulse Ox O2 Delivery O2 Flow Rate FiO2 12/21/16 08:06 Nasal Cannula 3.0 12/21/16 07:50 80 105/74 12/21/16 07:08 98 12/21/16 07:00 98.2 18 98.2 General: Alert, No acute distress HEENT: Other Lungs: Clear Cardiovascular: S1, S2 Abdomen: Soft, Non-tender Neuro Exam: Alert Extremities: No Edema Skin: Warm Labs Laboratory Tests Test 12/20/16 08:06 Sodium Level 143mmol/L (136-145) Potassium Level 3.9mmol/L (3.5-5.1) Chloride Level 101mmol/L (98-107) Carbon Dioxide Level 31mmol/L (21-32) Anion Gap 11 (6-14) Blood Urea Nitrogen 31mg/dL (7-20) Creatinine 1.1mg/dL (0.6-1.0) Estimated GFR (Cockcroft-Gault) 46.9 Glucose Level 173mg/dL (70-99) Lactic Acid Level 3.4mmol/L (0.4-2.0) Calcium Level 8.5mg/dL (8.5-10.1) Medications Active Scripts Medications Dose Route/Sig Days Date Category Oxycodone-Acetaminophen 5-325 (Oxycodone Hcl/Acetaminophen) 1 Each Tablet 0.5 Tab PO PRN Q6HRS PRN 12/19/16 Reported Trusopt (Dorzolamide Hcl) 10 Ml Drops 10 Ml OU DAILY 12/01/16 Reported Cetirizine Hcl 10 Mg Tablet 1 Tab PO DAILY 12/01/16 Reported Ocuvite Tablet (Vit A,C & E/Lutein/Minerals) 1 Each Tablet 1 Cap PO DAILY 12/01/16 Reported Xalatan (Latanoprost) 2.5 Ml Drops 1 Drop EACHEYE QHS 12/01/16 Reported Tums (Calcium Carbonate) 300 Mg Tab.chew 500 Mg PO DAILY 12/01/16 Reported Budesonide 0.5 Mg/2 Ml Ampul.neb 1 Vial NEB BID 12/01/16 Reported Calcium 600 + Vit D 200 Tablet (Calcium Carbonate/Vitamin D3) 1 Each Tablet 1 Each PO DAILY 11/02/16 Reported Azopt (Brinzolamide) 10 Ml Drops.susp 1 Drop EACHEYE DAILY 11/02/16 Reported Lutein-Zeaxanthin 25-5 Mg Sfgl (Lutein/Zeaxanthin) 1 Each Capsule 1 Each PO DAILY 11/02/16 Reported Lasix (Furosemide) 80 Mg Tablet 1 Tab PO BID 11/02/16 Reported Aspirin 325 Mg Tablet 1 Tab PO DAILY 07/19/16 Reported Toprol Xl (Metoprolol Succinate) 25 Mg Tab.er.24h 1.5 Tab PO DAILY 07/19/16 Reported Magnesium Oxide 400 Mg Tablet 500 Mg PO DAILY 07/19/16 Reported Albuterol Sulfate Neb Soln (Albuterol Sulfate) 2.5 Mg/3 Ml Vial.neb 1 Vial NEB QID 11/30/15 Reported Feosol (Ferrous Sulfate) 325 Mg Tablet 325 Mg PO DAILY 08/30/15 Rx Tums (Calcium Carbonate) 200 Mg Tab.chew 200 Mg PO PRN Q2HRS PRN 12/27/14 Reported Travatan Z (Travoprost) 5 Ml Drops 1 Drop EACHEYE QHS 08/12/14 Reported Impression . 1. Acute on chronic respiratory failure, multifactorial in etiology. 2. Abnormal chest x-ray with increasing right effusion, s/p 1200 cc removed via pleureX catheter 3. Acute on chronic diastolic HF (Grade III diastolic) 4. Status post right PleurX catheter placement. 5. Asthma. 6. Questionable chronic obstructive pulmonary disease. 7. Atrial fibrillation. 8. Lower extremity cellulitis. 9. History of breast cancer. 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 Plan . repeat cxr today. will need further removal of pleural fluid if no improvement will continue the same for now supportive care treatment of pulmonary HTN according to etiology. VADIM CAMARA MD Dec 21, 2016 09:21
--- NOTE | 2016-12-21 10:33 | PDOC ---
Infectious Disease Note Subjective Subjective Doing ok. Legs are better ROS ROS GEN: Denies fevers, chills, sweats HEENT: Denies blurred vision, sore throat CV: Denies chest pain RESP: Denies shortness of air, cough GI: Denies n/v/d NEURO: Denies confusion, dizziness MSK: Denies weakness, joint pain/swelling Vital Sign Vital Signs Vital Signs Date Time Temp Pulse Resp B/P Pulse Ox O2 Delivery O2 Flow Rate FiO2 12/21/16 09:33 Nasal Cannula 3.0 12/21/16 07:50 80 105/74 12/21/16 07:08 98 12/21/16 07:00 98.2 18 98.2 Physical Exam PHYSICAL EXAM GENERAL: NAD, Alert, in chair. Less weak appearing HEENT: PERRL, OC/OP- clear NECK: Supple, no JVD, no LN LUNGS: Clear HEART: S1S2, no gallop, no murmur ABD: Soft, NT, no organomegaly, no rebound EXT: trace edema, no cyanosis. No erythema PANEL RAISER OPERATOR: Alert, oriented x 3, no focal neurologic deficit SKIN: No rash IV: ok Objective Assessment Cellulitis of legs, bilaterally - Tinea - better today Left ankle wounds. Staph aureus CHF with large right pleural effusion S/p thoracentsis. 1200 ml CKD COPD Recent fall h/o MRSA colonization Plan Plan of Care Cefazolin wean soon Dose micafungin Leg elevation Culture wound Monitor labs RIGO LUO MD Dec 21, 2016 10:33
--- NOTE | 2016-12-21 11:35 | RAD ---
Portable chest, 12/21/2016: History: Shortness of breath, effusion Comparison is made to yesterday's study. A left-sided transvenous pacemaker is in place with a single lead extending into the right ventricle. A pleural drain extends into the medial aspect of the right apex. The heart is enlarged. The pulmonary vascularity is within normal limits. There is calcific plaquing of the aorta. There are moderate bibasilar opacities compatible with pleural fluid and underlying atelectasis. The amount of right-sided pleural fluid appears to have decreased. The left basilar opacity is unchanged. There is no evidence of pneumothorax. No new abnormality is detected. IMPRESSION: 1. Decrease in volume of the moderate size right pleural effusion since chest today's exam. 2. No other significant interval change.
[2016-12-21] MEDS: MICAFUNGIN 100 MG in IV DEXTROSE 5% 100 ML IV SCH (15:37)
[2016-12-21] MEDS: FUROSEMIDE INJ 100 MG in IV NORMAL SALINE 100ML 100 ML IV PRN (19:19)
--- NOTE | 2016-12-21 20:27 | PDOC ---
Provider Note Provider Note Continues to be tachypneic but she says she is better. No evidence of orthostatic hypotension. Urine and creatinine are stable at 31 and 1.1. Plan to DC Lasix drip and discharge tomorrow. SANTIAGO RAY MD Dec 21, 2016 20:27
[2016-12-22 03:21] VITALS: BP 94/67
[2016-12-22 05:52] LABS: CALCIUM 8.6 mg/dL (8.5-10.1); GFR 52.3; MAGNESIUM 2.5 mg/dL (1.8-2.4); POTASSIUM 3.6 mmol/L (3.5-5.1)
[2016-12-22 07:00] VITALS: BP 132/66
[2016-12-22] MEDS: BUDESONIDE 0.5 MG/2 ML NEBU. NEB SCH ×2 (07:14→18:23)
[2016-12-22] MEDS: IPRATROPIUM BROMIDE 0.5 MG/2.5 ML NEBU. NEB SCH ×4 (07:14→18:23)
--- NOTE | 2016-12-22 08:48 | PDOC ---
PULMONARY PROGRESS NOTES Subjective pt with no increase soa Vitals Vital Signs Date Time Temp Pulse Resp B/P Pulse Ox O2 Delivery O2 Flow Rate FiO2 12/22/16 07:16 97 Nasal Cannula 3.0 12/22/16 03:21 97.8 80 18 94/67 97.8 General: Alert, No acute distress HEENT: Other Lungs: Clear Cardiovascular: S1, S2 Abdomen: Soft, Non-tender Neuro Exam: Alert Extremities: Other (erythema) Skin: Warm Labs Laboratory Tests Test 12/22/16 04:45 Sodium Level 147mmol/L (136-145) Potassium Level 3.6mmol/L (3.5-5.1) Chloride Level 105mmol/L (98-107) Carbon Dioxide Level 35mmol/L (21-32) Anion Gap 7 (6-14) Blood Urea Nitrogen 31mg/dL (7-20) Creatinine 1.0mg/dL (0.6-1.0) Estimated GFR (Cockcroft-Gault) 52.3 Glucose Level 107mg/dL (70-99) Calcium Level 8.6mg/dL (8.5-10.1) Magnesium Level 2.5mg/dL (1.8-2.4) Laboratory Tests Test 12/22/16 04:45 Sodium Level 147mmol/L (136-145) Potassium Level 3.6mmol/L (3.5-5.1) Chloride Level 105mmol/L (98-107) Carbon Dioxide Level 35mmol/L (21-32) Anion Gap 7 (6-14) Blood Urea Nitrogen 31mg/dL (7-20) Creatinine 1.0mg/dL (0.6-1.0) Estimated GFR (Cockcroft-Gault) 52.3 Glucose Level 107mg/dL (70-99) Calcium Level 8.6mg/dL (8.5-10.1) Magnesium Level 2.5mg/dL (1.8-2.4) Medications Active Scripts Medications Dose Route/Sig Days Date Category Oxycodone-Acetaminophen 5-325 (Oxycodone Hcl/Acetaminophen) 1 Each Tablet 0.5 Tab PO PRN Q6HRS PRN 12/19/16 Reported Trusopt (Dorzolamide Hcl) 10 Ml Drops 10 Ml OU DAILY 12/01/16 Reported Cetirizine Hcl 10 Mg Tablet 1 Tab PO DAILY 12/01/16 Reported Ocuvite Tablet (Vit A,C & E/Lutein/Minerals) 1 Each Tablet 1 Cap PO DAILY 12/01/16 Reported Xalatan (Latanoprost) 2.5 Ml Drops 1 Drop EACHEYE QHS 12/01/16 Reported Tums (Calcium Carbonate) 300 Mg Tab.chew 500 Mg PO DAILY 12/01/16 Reported Budesonide 0.5 Mg/2 Ml Ampul.neb 1 Vial NEB BID 12/01/16 Reported Calcium 600 + Vit D 200 Tablet (Calcium Carbonate/Vitamin D3) 1 Each Tablet 1 Each PO DAILY 11/02/16 Reported Azopt (Brinzolamide) 10 Ml Drops.susp 1 Drop EACHEYE DAILY 11/02/16 Reported Lutein-Zeaxanthin 25-5 Mg Sfgl (Lutein/Zeaxanthin) 1 Each Capsule 1 Each PO DAILY 11/02/16 Reported Lasix (Furosemide) 80 Mg Tablet 1 Tab PO BID 11/02/16 Reported Aspirin 325 Mg Tablet 1 Tab PO DAILY 07/19/16 Reported Toprol Xl (Metoprolol Succinate) 25 Mg Tab.er.24h 1.5 Tab PO DAILY 07/19/16 Reported Magnesium Oxide 400 Mg Tablet 500 Mg PO DAILY 07/19/16 Reported Albuterol Sulfate Neb Soln (Albuterol Sulfate) 2.5 Mg/3 Ml Vial.neb 1 Vial NEB QID 11/30/15 Reported Feosol (Ferrous Sulfate) 325 Mg Tablet 325 Mg PO DAILY 08/30/15 Rx Tums (Calcium Carbonate) 200 Mg Tab.chew 200 Mg PO PRN Q2HRS PRN 12/27/14 Reported Travatan Z (Travoprost) 5 Ml Drops 1 Drop EACHEYE QHS 08/12/14 Reported Impression . 1. Acute on chronic respiratory failure, multifactorial in etiology. 2. Abnormal chest x-ray with increasing right effusion, s/p 1200 cc removed via pleureX catheter 3. Acute on chronic diastolic HF (Grade III diastolic) 4. Status post right PleurX catheter placement. 5. Asthma. 6. Questionable chronic obstructive pulmonary disease. 7. Atrial fibrillation. 8. Lower extremity cellulitis. 9. History of breast cancer. 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 Plan . repeat cxr with improved right effusion.. will need further removal of pleural fluid on a PRN basis will continue the same for now supportive care treatment of secondary pulmonary HTN according to etiology. follow ID recommendations VADIM CAMARA MD Dec 22, 2016 08:48
[2016-12-22] MEDS: SPIRONOLACTONE 25 MG TABLET PO SCH (09:23)
[2016-12-22] MEDS: FUROSEMIDE 80 MG TABLET. PO SCH ×2 (09:23→16:01)
[2016-12-22] MEDS: POTASSIUM CHLORIDE 20 MEQ TABLET.ER. PO SCH (09:23)
[2016-12-22] MEDS: CEFAZOLIN SODIUM 1 GM in IV NORMAL SALINE 50ML 50 ML IV SCH (09:24)
[2016-12-22] MEDS: METOPROLOL SUCC 24HR ER 25 MG TAB.ER.24H. PO SCH (09:24)
[2016-12-22 11:00] VITALS: BP 106/73
--- NOTE | 2016-12-22 11:45 | PDOC ---
Provider Note Provider Note She is not as short of breath. Edema of the legs has resolved. She still has some edema of the thighs. Lasix drip has been discontinued. Lungs show decreased breath sounds in both bases. She is still on IV antibiotics for her cellulitis. Lactic acid is still elevated. Await Dr. mckeon size decision as to when the IV antibiotics can be discontinued. She has logan in her on her scalp. This will be removed today. Discussed with Dr. Hodge. He believes them remaining the fluid every 3 to fill 4 days would be all right. SANTIAGO RAY MD Dec 22, 2016 11:44
[2016-12-22] MEDS ORDERED: POTASSIUM CHLORIDE 20 MEQ TABLET.ER. PO ONE (12:00)
--- NOTE | 2016-12-22 12:11 | PDOC ---
Infectious Disease Note Subjective Subjective Feels better. Less SOA Legs are better ROS ROS GEN: Denies fevers, chills, sweats HEENT: Denies blurred vision, sore throat CV: Denies chest pain RESP: Denies shortness of air, cough GI: Denies n/v/d NEURO: Denies confusion, dizziness MSK: Denies weakness, joint pain/swelling Vital Sign Vital Signs Vital Signs Date Time Temp Pulse Resp B/P Pulse Ox O2 Delivery O2 Flow Rate FiO2 12/22/16 11:20 Nasal Cannula 3.0 12/22/16 09:24 112 109/78 12/22/16 07:16 97 12/22/16 03:21 97.8 18 97.8 Physical Exam PHYSICAL EXAM GENERAL: NAD, Alert, coop HEENT: PERRL, OC/OP- clear NECK: Supple, no JVD, no LN LUNGS: Clear HEART: S1S2, no gallop, no murmur ABD: Soft, NT, no organomegaly, no rebound EXT: No edema, no cyanosis. Less erythema. 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 MRSA but looks clean ? colonization CHF with large right pleural effusion S/p thoracentsis. 1200 ml CKD COPD Recent fall h/o MRSA colonization Plan Plan of Care Cefazolin wean to Kelfex. Clinically she is improving without MRSA treatment. will monitor Dose micafungin likely d/c 12/23 Leg elevation Monitor labs RIGO LUO MD Dec 22, 2016 12:11
[2016-12-22 15:00] VITALS: BP 101/75
[2016-12-22] MEDS: CEPHALEXIN 250 MG CAPSULE. PO SCH ×2 (16:01→21:10)
[2016-12-22] MEDS: MICAFUNGIN 100 MG in IV DEXTROSE 5% 100 ML IV SCH (16:01)
[2016-12-22 19:00] VITALS: BP 92/65
[2016-12-22] MEDS: OXYCODONE/APAP 5/325 TABLET. PO PRN (21:08)
[2016-12-22 23:00] VITALS: BP 114/87
[2016-12-23 03:01] VITALS: BP 99/62
[2016-12-23] MEDS: OXYCODONE/APAP 5/325 TABLET. PO PRN ×3 (05:57→16:25)
[2016-12-23 07:00] VITALS: BP 104/76
[2016-12-23] MEDS: BUDESONIDE 0.5 MG/2 ML NEBU. NEB SCH (07:30)
[2016-12-23] MEDS: IPRATROPIUM BROMIDE 0.5 MG/2.5 ML NEBU. NEB SCH ×3 (07:30→15:47)
--- NOTE | 2016-12-23 08:50 | PDOC ---
PULMONARY PROGRESS NOTES Subjective pt with no increase soa Vitals Vital Signs Date Time Temp Pulse Resp B/P Pulse Ox O2 Delivery O2 Flow Rate FiO2 12/23/16 07:32 99 Nasal Cannula 3.0 12/23/16 03:01 97.7 86 20 99/62 97.7 General: Alert, No acute distress HEENT: Other Lungs: Clear Cardiovascular: S1, S2 Abdomen: Soft, Non-tender Neuro Exam: Alert Extremities: Other (erythema) Skin: Warm Labs Laboratory Tests Test 12/22/16 04:45 Sodium Level 147mmol/L (136-145) Potassium Level 3.6mmol/L (3.5-5.1) Chloride Level 105mmol/L (98-107) Carbon Dioxide Level 35mmol/L (21-32) Anion Gap 7 (6-14) Blood Urea Nitrogen 31mg/dL (7-20) Creatinine 1.0mg/dL (0.6-1.0) Estimated GFR (Cockcroft-Gault) 52.3 Glucose Level 107mg/dL (70-99) Calcium Level 8.6mg/dL (8.5-10.1) Magnesium Level 2.5mg/dL (1.8-2.4) Medications Active Scripts Medications Dose Route/Sig Days Date Category Oxycodone-Acetaminophen 5-325 (Oxycodone Hcl/Acetaminophen) 1 Each Tablet 0.5 Tab PO PRN Q6HRS PRN 12/19/16 Reported Trusopt (Dorzolamide Hcl) 10 Ml Drops 10 Ml OU DAILY 12/01/16 Reported Cetirizine Hcl 10 Mg Tablet 1 Tab PO DAILY 12/01/16 Reported Ocuvite Tablet (Vit A,C & E/Lutein/Minerals) 1 Each Tablet 1 Cap PO DAILY 12/01/16 Reported Xalatan (Latanoprost) 2.5 Ml Drops 1 Drop EACHEYE QHS 12/01/16 Reported Tums (Calcium Carbonate) 300 Mg Tab.chew 500 Mg PO DAILY 12/01/16 Reported Budesonide 0.5 Mg/2 Ml Ampul.neb 1 Vial NEB BID 12/01/16 Reported Calcium 600 + Vit D 200 Tablet (Calcium Carbonate/Vitamin D3) 1 Each Tablet 1 Each PO DAILY 11/02/16 Reported Azopt (Brinzolamide) 10 Ml Drops.susp 1 Drop EACHEYE DAILY 11/02/16 Reported Lutein-Zeaxanthin 25-5 Mg Sfgl (Lutein/Zeaxanthin) 1 Each Capsule 1 Each PO DAILY 11/02/16 Reported Lasix (Furosemide) 80 Mg Tablet 1 Tab PO BID 11/02/16 Reported Aspirin 325 Mg Tablet 1 Tab PO DAILY 07/19/16 Reported Toprol Xl (Metoprolol Succinate) 25 Mg Tab.er.24h 1.5 Tab PO DAILY 07/19/16 Reported Magnesium Oxide 400 Mg Tablet 500 Mg PO DAILY 07/19/16 Reported Albuterol Sulfate Neb Soln (Albuterol Sulfate) 2.5 Mg/3 Ml Vial.neb 1 Vial NEB QID 11/30/15 Reported Feosol (Ferrous Sulfate) 325 Mg Tablet 325 Mg PO DAILY 08/30/15 Rx Tums (Calcium Carbonate) 200 Mg Tab.chew 200 Mg PO PRN Q2HRS PRN 12/27/14 Reported Travatan Z (Travoprost) 5 Ml Drops 1 Drop EACHEYE QHS 08/12/14 Reported Impression . 1. Acute on chronic respiratory failure, multifactorial in etiology. 2. Abnormal chest x-ray with increasing right effusion, s/p 1200 cc removed via pleureX catheter 3. Acute on chronic diastolic HF (Grade III diastolic) 4. Status post right PleurX catheter placement. 5. Asthma. 6. Questionable chronic obstructive pulmonary disease. 7. Atrial fibrillation. 8. Lower extremity cellulitis. 9. History of breast cancer. 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 Plan . repeat cxr with improved right effusion.. will need further removal of pleural fluid on a PRN basis will continue the same for now supportive care treatment of secondary pulmonary HTN according to etiology. follow ID recommendations VADIM CAMARA MD Dec 23, 2016 08:50
[2016-12-23] MEDS ORDERED: METOLAZONE 2.5 MG TABLET PO SCH (09:00)
[2016-12-23] MEDS: FUROSEMIDE 80 MG TABLET. PO SCH ×2 (10:25→16:24)
[2016-12-23] MEDS: POTASSIUM CHLORIDE 20 MEQ TABLET.ER. PO SCH (10:25)
[2016-12-23] MEDS: CEPHALEXIN 250 MG CAPSULE. PO SCH ×2 (10:25→16:24)
[2016-12-23] MEDS: SPIRONOLACTONE 25 MG TABLET PO SCH (10:26)
[2016-12-23] MEDS: METOPROLOL SUCC 24HR ER 25 MG TAB.ER.24H. PO SCH (10:30)
[2016-12-23 11:00] VITALS: BP 97/67
--- NOTE | 2016-12-23 12:06 | PDOC ---
Infectious Disease Note Subjective Subjective Less responsive now. Nursing reports ate 50 % of breakfast ROS ROS GEN: Denies fevers, chills, sweats HEENT: Denies blurred vision, sore throat CV: Denies chest pain RESP: Denies shortness of air, cough GI: Denies n/v/d NEURO: Denies confusion, dizziness MSK: Denies weakness, joint pain/swelling Vital Sign Vital Signs Vital Signs Date Time Temp Pulse Resp B/P Pulse Ox O2 Delivery O2 Flow Rate FiO2 12/23/16 11:49 97 Nasal Cannula 3.0 12/23/16 10:42 28 12/23/16 10:30 74 104/76 12/23/16 07:00 97.4 97.4 Physical Exam PHYSICAL EXAM GENERAL: NAD, Awakens but only looks at me HEENT: Dry NECK: Supple, no JVD, no LN LUNGS: Clear HEART: S1S2, no gallop, no murmur ABD: Soft, NT, no organomegaly, no rebound EXT: No edema, no cyanosis. cont to improve DIRECTOR STATISTICAL PROGRAMMING: Alert, o no focal neurologic deficit SKIN: No rash IV: ok Objective Assessment ? Failure to thrive Cellulitis of legs, bilaterally - Tinea - better today Left ankle wounds. MRSA but looks clean ? colonization CHF with large right pleural effusion S/p thoracentsis. 1200 ml CKD COPD Recent fall h/o MRSA colonization Plan Plan of Care Cont Kelfex for 5 days D/c micafungin likely d/c 12/23 Leg elevation May need palliative eval ID to sign off RIGO LUO MD Dec 23, 2016 12:06
[2016-12-23 15:00] VITALS: BP 106/67
[2017-01-28] MEDS ORDERED: CEFAZOLIN 2GM PREMIX 50 ML IV SCH (09:00)
== END 2016-12-23 19:45 | disposition home health service (06) | DRG 871 ==
LOC: ER 18:37 → 5 NORTH 21:22
PROVIDERS: ADMIT Specialist; ATTEND Specialist
DX: A41.9 Sepsis, unspecified organism (principal); I50.33 Acute on chronic diastolic (congestive) heart failure; J96.20 Acute and chronic respiratory failure, unspecified whether with hypoxia or hypercapnia; E43 Unspecified severe protein-calorie malnutrition; I13.0 Hypertensive heart and chronic kidney disease with heart failure and stage 1 through stage 4 chronic kidney disease, or unspecified chronic kidney disease; L03.115 Cellulitis of right lower limb; L03.116 Cellulitis of left lower limb; E87.2 Acidosis; I48.1 Persistent atrial fibrillation; J98.11 Atelectasis; J44.9 Chronic obstructive pulmonary disease, unspecified; B35.9 Dermatophytosis, unspecified; E78.5 Hyperlipidemia, unspecified; G47.30 Sleep apnea, unspecified; H40.9 Unspecified glaucoma; I27.2 Other secondary pulmonary hypertension; I34.0 Nonrheumatic mitral (valve) insufficiency; I35.0 Nonrheumatic aortic (valve) stenosis; K21.9 Gastro-esophageal reflux disease without esophagitis; M41.9 Scoliosis, unspecified; N18.9 Chronic kidney disease, unspecified; R32 Unspecified urinary incontinence; Z80.3 Family history of malignant neoplasm of breast; Z80.7 Family history of other malignant neoplasms of lymphoid, hematopoietic and related tissues; Z82.3 Family history of stroke; Z82.49 Family history of ischemic heart disease and other diseases of the circulatory system; Z82.5 Family history of asthma and other chronic lower respiratory diseases; Z85.3 Personal history of malignant neoplasm of breast; Z86.14 Personal history of Methicillin resistant Staphylococcus aureus infection; Z86.718 Personal history of other venous thrombosis and embolism; Z92.3 Personal history of irradiation; Z95.0 Presence of cardiac pacemaker; Z99.81 Dependence on supplemental oxygen; Z68.24 Body mass index [BMI] 24.0-24.9, adult
CPT/HCPCS: 36415; 71010; 80048; 80053; 83605; 83735; 83880; 85007; 85027; 87040; 87071; 87075; 87186; 87205; 87641; 93005; 93306; 93970; 94250; 94640; 94760; 96365; 96366; J0690; J1940; J2248; J2270; J3370; J7040; J7050; J7644; 97116; 97530; 99285-25; J7030